=== PATIENT | male | born 1960 | race Caucasian/White ===

== ENCOUNTER 2016-08-16 07:36 | Day surgery (SDC) | payer MEDICAID ==
[2016-08-16] MEDS ORDERED: LIDOCAINE 1% 5 ML SDV ONE (08:15)
[2016-08-16] MEDS ORDERED: LR 1,000 ML IV ONE (08:35)
[2016-08-16] MEDS ORDERED: LIDOCAINE 1% 5 ML SDV ID PRN (08:35)
[2016-08-16] MEDS ORDERED: PROPOFOL 200 MG/20 ML VIAL ONE ×2 (08:42)
[2016-08-16] MEDS ORDERED: MIDAZOLAM 2 MG/2 ML VIAL ONE (08:53)
--- NOTE | 2016-08-16 10:24 | GPN ---
[f rep st] PROCEDURE NOTE PROCEDURE: Esophagogastroduodenoscopy with dilation. INDICATION: Known esophageal stricture, known Holliday's. PREOPERATIVE DIAGNOSIS: Esophageal stricture, known, and Holliday's. POSTOPERATIVE DIAGNOSES: 1. Esophageal stricture, status post dilation to 20 mm with Savary dilators. 2. Holliday esophagitis. No biopsies. 3. Percutaneous endoscopic gastrostomy in place in stomach. 4. Normal duodenum. INFORMED CONSENT: I had a detailed discussed with the patient regarding the procedure, alternatives, benefits, and risks, including bleeding, perforation, infection, risk of medication. Informed conse nt was signed and witnessed. COMPLICATIONS: None immediate. MEDICATIONS: IV general, as per Dr. Muhammad. DESCRIPTION OF PROCEDURE: After the patient was placed in the left lateral decubitus position, under adequate sedation, the forward-viewing upper endoscope was inserted in the oropharynx and advanced d own the esophagus. The proximal esophagus was normal. Starting at the midesophagus was a long segme nt Holliday's. There was no abnormal mucosa. The stricture was much improved from previous. I was a ble to pass my endoscope with absolutely no resistance. I advanced into the stomach. The PEG was in place in the stomach. The pylorus was normal. The duodenal bulb and sweep were normal. The endosc ope was withdrawn back in the stomach. A retroflex examination was performed. The endoscope was un retroflexed. Guidewire was placed into the antrum. The endoscope was removed with the guidewire in place. Savary dilators were placed over the guidewire. I initially started with a 15 mm Savary with absolutely no resistance. There was no heme. I then went up to a 17 mm dilator with minimal resist ance, an 18 mm dilator with minimal resistance and a small amount of heme, and then a 20 mm dilator w ith mild resistance and a small amount of heme. In between the 18 mm and 20 mm balloon, I reinserted the endoscope to examine the area, and there was dilation performed. There was no deep tear. There was a small amount of heme at that area. The endoscope was then completely removed, confirming the above findings. The patient tolerated this procedure well, and was transferred to the recovery area in satisfactory condition. IMPRESSION: 1. Known esophageal stricture, status post dilation to 20 mm with Savary. 2. Long segment Holliday's. 3. Percutaneous endoscopic gastrostomy in place in the stomach. 4. Otherwise normal exam. RECOMMENDATIONS: 1. Continue Prilosec 40 mg p.o. twice daily half an hour to an hour before breakfast and dinner. 2. Continue ranitidine 300 mg p.o. at bedtime. 3. Repeat EGD with possible dilation in approximately 4 months. Will also biopsy the Holliday's at t hat time. 4. Cut food into small pieces and chew well. 5. If the patient has any episodes of dysphagia, we would recommend EGD at that time, sooner than th e 4-month interval that is noted above. 6. Antireflux lifestyle changes. 7. Follow up with primary care physician as scheduled. Thank you for allowing me to participate in this patient's healthcare. Do not hesitate to call me wi th any questions. Copy requested to: [facility] /[id number]/MODL
== END 2016-08-16 11:45 | disposition home or self-care (01) ==
LOC: FSGY 07:36
PROVIDERS: ATTEND Internal Medicine Gastroenterology
PROC: 0D758ZZ Dilation of Esophagus, Via Natural or Artificial Opening Endoscopic (ICD-10-PCS; principal; 2016-08-16 09:00)
DX: K22.2 Esophageal obstruction (principal); K22.70 Barrett's esophagus without dysplasia; I10 Essential (primary) hypertension; E03.9 Hypothyroidism, unspecified; Z93.1 Gastrostomy status; I69.351 Hemiplegia and hemiparesis following cerebral infarction affecting right dominant side; F17.210 Nicotine dependence, cigarettes, uncomplicated
CPT/HCPCS: J2250; J2704

== ENCOUNTER 2016-10-28 09:41 | Inpatient (IN) | payer MEDICAID ==
--- NOTE | 2016-10-28 09:51 | EDPHY ---
H & P HPI/ROS: CHIEF COMPLAINT: possible sepsis HISTORY OF PRESENT ILLNESS: Patient is a 56-year-old male with previous CVA who is full-time resident at [facility]. Per report, the patient is often times belligerent and not receptive care. The patient states that he developed right buttock pain last . It has progressed since that time. He now has significant pain and redness. "It is a real pain in the ass." Pain is described as severe. It does not radiate. Patient was initially started on Keflex and then Bactrim. He had been written for IV antibiotic Rocephin but did not want a PICC line, per report. The patient denies fevers or chills. He has no numbness or tingling. REVIEW OF SYSTEMS: My complete review of systems is negative except as mentioned in the HPI. Past Medical/Surgical History: Includes CVA, hypothyroidism, dementia, hypertension, dysphagia, GERD, benign prostatic hypertrophy, depression Social History: Patient is a residential resident. He "occasionally smokes". Smoking Status: Heavy smoker Physical Exam: Vitals noted GENERAL: No acute distress, alert. HEENT: Eyes normal to inspection, poor dentition, normal pharynx, no signs of dehydration. NECK: No thyromegaly, no lymphadenopathy, supple. RESPIRATORY: Clear to auscultation bilaterally, no rales, rhonchi or wheezing. CVS: Regular rate and rhythm, no rubs, murmurs, or gallops. ABDOMEN: Soft, nontender, nondistended, no organomegaly. BACK/Buttock: Patient has significant erythema over his right buttock. This extends down the right posterior/lateral thigh. It has previously been demarcated with a pen and is not extending beyond this mk. It is mildly firm to the touch. There is no fluctuance. The patient has 2 ulcers on the buttock. There are deep and have pus discharge. SKIN: Normal color, no rash, warm, dry. No pallor. EXTREMITIES: No pedal edema, no calf tenderness, no Homans sign or cords, no joint swelling. NEURO/PSYCH: Alert and oriented, normal mood and affect. Patient has difficulty with speech secondary to CVA. He does have residual weakness. Allergies/Adverse Reactions: iodine Allergy (Verified 07/26/16 10:53) Home Medications: Medication Instructions Recorded Doxazosin Mesylate [Cardura 1 MG 1 mg TUBE HS 03/12/15 (*)] Levothyroxine [Synthroid 25 mcg 25 mcg TUBE DAILY06 03/12/15 (*)] Magnesium Hydroxide [Milk of 10 ml TUBE Q8 PRN 03/12/15 Magnesia (*)] Metoprolol Tartrate [Lopressor 25 25 mg TUBE DAILY 03/12/15 mg (*)] Omeprazole [Prilosec 20 mg] 40 mg TUBE BID 03/12/15 Simvastatin [Zocor] 20 mg TUBE DAILY 03/12/15 guaiFENesin [Mucinex 600 MG (*)] 600 mg TUBE BID 03/12/15 Acetaminophen [Tylenol] 1,000 mg TUBE DAILY 01/22/16 Glycopyrrolate 1 mg TUBE BID 01/22/16 Mirtazapine [Remeron Soltab] 45 mg TUBE HS 01/22/16 Ranitidine HCl [Zantac] 300 mg TUBE DAILY 01/22/16 clonazePAM [KlonOPIN] 0.25 mg TUBE BID 01/22/16 Artificial Tears 2 drops EACHEYE QID 07/26/16 Multivitamin 1 tab-cap TUBE DAILY 07/26/16 Robitussin Dm Oral Liquid (*) 10 ml TUBE Q4H 07/26/16 Vitamin C 500 mg (*) 500 mg TUBE BID AT 7AM AND 3PM 07/26/16 Medical Decision Making ED Course/Re-evaluation: In the emergency department I met EMS on arrival. I took report from the wealth management director. I reviewed the patient's record from the residential. I also reviewed the patient's previous medical record from the hospital. It is noted the patient was placed on Keflex and Bactrim orally. There was a note that the patient would be started on Rocephin and then Zosyn if he consented to a PICC line. However, the patient does not have an IV. I discussed the plan with the patient and answered his questions. He consents to IV placement, laboratory studies, cultures and treated with antibiotics. The patient was given Rocephin 1 g IV and vancomycin 1 g IV. Differential Diagnosis: My differential includes but is not limited to ulcers, cellulitis, abscess, bacteremia, sepsis, foreign body, fistula Departure - Departure Disposition: [facility] Inpatient Acute Clinical Impression: Pressure ulcer, buttock Qualifiers: Pressure ulcer stage: unspecified pressure ulcer stage Laterality: right Qualified Code(s): L89.319 - Pressure ulcer of right buttock, unspecified stage Cellulitis Qualifiers: Site of cellulitis: buttock Qualified Code(s): L03.317 - Cellulitis of buttock Condition: Good Referrals: Patient,NotPresent [Primary Care Provider] - As per Instructions
[2016-10-28] MEDS ORDERED: VANCOMYCIN HCL/NORMAL SALINE 250 ML IV ONE (10:05)
[2016-10-28 10:17] LABS: ADD DIFF? YES; ADD MORPH? NO; ADD SCAN? NO; ATYPICAL LYMPHOCYTE FLAG 70 (0-99); FRAGMENT RBC FLAG 0 (0-99); HEMATOCRIT 45.2 % (40.0-51.0); HEMOGLOBIN 15.3 g/dL (13.7-17.5); LEFT SHIFT FLG 40 (0-99); LIPEMIA HEMOLYSIS FLAG 90 (0-99); MEAN CELL HEMOGLOBIN 31.7 pg (27.9-34.1); MEAN CELL HEMOGLOBIN CONCENTR. 33.8 g/dL (32.4-36.7); MEAN CELL VOLUME 93.8 fL (81.5-99.8); MEAN PLATELET VOLUME 10.6 fL (8.7-11.7); PLATELET CLUMPS FLAG 0 (0-99); PLATELET COUNT 221 10^3/uL (150-400); RED BLOOD CELL COUNT 4.82 10^6/uL (4.40-6.38); RED CELL DISTRIBUTION WIDTH 13.9 % (11.5-15.2)
[2016-10-28 10:22] LABS: INR 1.14 (0.83-1.16); PROTIME(PATIENT) 14.5 SEC (12.0-15.0)
[2016-10-28 10:23] LABS: APTT 29.6 SEC (23.0-38.0)
[2016-10-28] MEDS ORDERED: NS 1,000 ML IV ONE (10:26)
[2016-10-28 10:43] LABS: ANION GAP 10 mEq/L (8-16); CALCIUM 8.1 mg/dL (8.5-10.4); CARBON DIOXIDE 28 mEq/l (22-31); CHLORIDE 96 mEq/L (97-110); GLOMERULAR FILTRATION RATE > 60; GLUCOSE 82 mg/dL (70-100); POTASSIUM 3.6 mEq/L (3.5-5.2); SODIUM 134 mEq/L (134-144)
[2016-10-28 10:58] LABS: ECHINOCYTES 1+; MICROCYTES 1+; PLATELET ESTIMATE ADEQUATE (ADEQ); POLYCHROMASIA 1+
--- NOTE | 2016-10-28 12:29 | WOCRNPDOC ---
WOCRN Advanced Assessment Note - Skin Integrity Problem, Advanced Assess Right Ischial Tuberosity Pressure Injury Dressing Type: ABD Pad Dressing Description: Intact, Shadowed Exudate Amount: Excessive Exudate Characteristic(s): Sanguinopurulent Integumentary Issue Intervention: Dressing Removed Nora Wound Tissue: Erythema, Erythema Marked by Wound aerospace medicine physician Bed Color: Alan Wound Bed Constitution: Smooth Tissue (necrotic), Undermining ( circumferentially 6 cm ), Subcutaneous Fat Wound Edges: Not Attached Site Odor: Very Strong, Foul Site Measurement - Head-to-Toe Length X Width X Depth (cm): 5x15x1.5 Pressure Injury Stage: Stage 4 Pressure Injury Present on Admit: Yes Skin Integrity Problem Comment: Extensive erythema over hip and buttock emanating from necrotic, infected wound. Two open wounds are present. The largest over the right ischial tuberosity and the second near the distal sacrum. However these two wounds are only sperated by a skin bridge and are essentialy one wound. Patient needs a surgical consultation and one was requested from Corie Gaitan NP. TAPS initiated. Specialty bed will be ordered. Wound care will round again tomorrow. Right Greater Trochanter Blister Dressing Type: Open to Air Site Measurement - Head-to-Toe Length X Width X Depth (cm): 4x5x0 Skin Integrity Problem Comment: Appears to be a large blister forming secondary to infection in the tissues.
[2016-10-28] MEDS ORDERED: ACETAMINOPHEN 325 MG TAB PO PRN (12:36)
[2016-10-28] MEDS ORDERED: ONDANSETRON DISINTEGRATING 4 MG TAB PO PRN (12:36)
[2016-10-28] MEDS ORDERED: ONDANSETRON 4 MG/2 ML VIAL IVP PRN (12:36)
[2016-10-28] MEDS ORDERED: oxyCODONE IR 5 MG TAB PO PRN (13:07)
[2016-10-28] MEDS ORDERED: NS 1,000 ML IV SCH (13:15)
--- NOTE | 2016-10-28 14:09 | SOAPPROG ---
SOAP Progress Note Assessment/Plan: Assessment: Plan: Subjective: 56 year old male with large right buttock abscess, draining purulence. not really a decubitus ulcer. needs opertative drainage large area of surrounding eryuthema. doesn't look like nec fasciitis. will take to or emergently. wbc 20 k with large bands. Objective: Vital Signs Temp Pulse Resp BP Pulse Ox 36.6 C 75 16 94/60 L 90 L 10/28/16 12:28 10/28/16 12:28 10/28/16 12:28 10/28/16 12:28 10/28/16 12:28 PT 14.5 SEC (12.0-15.0) 10/28/16 10:06 INR 1.14 (0.83-1.16) 10/28/16 10:06 ICD10 Worksheet Patient Problems: Problems Problem Status Onset Cellulitis Acute Pressure ulcer, buttock Acute Cellulitis Acute MRSA (methicillin resistant Staphylococcus aureus) Acute 08/25/15
[2016-10-28] MEDS ORDERED: LIDOCAINE 1% 30 ML SDV ONE (14:33)
[2016-10-28] MEDS ORDERED: BUPIVACAINE 0.5% 30 ML SDV ONE (14:34)
[2016-10-28] MEDS ORDERED: SKIN ADHESIVE (DERMABOND) 1 EACH TP ONE (15:04)
[2016-10-28] MEDS ORDERED: fentaNYL 100 MCG/2 ML INJ ONE (15:10)
[2016-10-28] MEDS ORDERED: PROPOFOL/EMULSION 500 MG/50 ML BOTTLE IV ONE (15:10)
[2016-10-28] MEDS ORDERED: PHENYLEPHRINE HCL 100 MCG/ML SYR ONE (15:31)
[2016-10-28] MEDS ORDERED: ONDANSETRON 4 MG/2 ML VIAL ONE (15:31)
[2016-10-28] MEDS ORDERED: MIDAZOLAM 2 MG/2 ML VIAL ONE (15:37)
--- NOTE | 2016-10-28 16:05 | GHP ---
[f rep st] HISTORY AND PHYSICAL DATE OF ADMISSION: 10/28/2016 CHIEF COMPLAINT: Right buttock wound. HISTORY OF PRESENT ILLNESS: The patient is a 56-year-old male with a history of a CVA, who is a ful l-time resident at [facility]. The patient was noted to have some increased pain starting approxima tely 6 days ago in his right buttock area. His pain has progressed since that time. He was treated with oral antibiotics at his living facility and was recommended to get a PICC line with IV antibio tics, but the patient refused. His pain in his right buttock is described as severe. It is isolate d to the right buttock, with no radiation to any other area. He was initially treated with Keflex a nd Bactrim. He denies any fevers or chills. He denies any numbness or tingling. He denies any anisha sea, vomiting, diarrhea. ALLERGIES: Iodine. HOME MEDICATIONS: Guaifenesin, milk of magnesia, eyedrops, Prilosec, Bactrim, Tylenol, Zocor, Synth roid, Zantac, Remeron, Cardura, clonazepam. REVIEW OF SYSTEMS: Comprehensive 10-point review of systems is negative, other than noted in HPI. PAST MEDICAL HISTORY: 1. CVA, hypothyroidism, dementia, hypertension, dysphagia, GERD, benign prostatic hypertrophy, depr ession. 2. History of esophageal stricture. 3. Holliday's esophagus. 4. Right-sided hemiplegia. PAST SURGICAL HISTORY: 1. G-tube placement. 2. Multiple esophageal dilations. SOCIAL HISTORY: The patient resides at [facility]. He smokes tobacco intermittently. He denies an y alcohol use. FAMILY HISTORY: Reviewed and noncontributory. PHYSICAL EXAM: GENERAL: The patient is alert, no acute distress. VITAL SIGNS: Afebrile at 36.6, pulse 75, respiratory rate 16. Blood pressure is 94/60, saturating 90% on 1.5 L. HEENT: Normoceph alic, atraumatic. Poor dentition. NECK: Supple. No lymphadenopathy noted. RESPIRATORY: Lungs a re clear to auscultation bilaterally. No rales or rhonchi noted. CARDIOVASCULAR: Regular rate and rhythm. No gallop or murmur appreciated. GASTROINTESTINAL: Abdomen, bowel sounds are positive. Soft and nontender. There is no guarding or rigidity. EXTREMITIES: Without clubbing or cyanosis. Right upper and lower extremity have decreased strength and movement. SKIN: Back and buttock, the re is significant erythema over the right buttock. It extends down to the right posterolateral thig h. It is firm to the touch, with 2 ulcers and pus discharge. Skin otherwise is normal in color. N o rashes or lesions. LABORATORY DATA: White count of 20, BUN of 24. ASSESSMENT AND PLAN: A 56-year-old male, brought to the emergency room from [facility]. 1. Right buttock cellulitis with likely abscess. Infectious Disease has been consulted at the time of admission, as well as General Surgery. The plan is for the patient to go to the operating room, have I and D of this infectious process. He will be continued on IV antibiotic therapy per Infecti ous Disease recommendations. The patient has been made n.p.o. I appreciate Surgery and Infectious Disease consultation. I anticipate that this will be a lengthy healing process for the patient. 2. Leukocytosis. This is an acute response to the patient's active infection. Will continue to fo llow his laboratory evaluation. 3. Chronic aspiration with dysphagia. The patient does have a feeding tube. We will clarify from [facility] exactly what his restrictions are. We will continue his home medications per tube after he has returned from surgery and able to tolerate oral intake. 4. Pain. We will continue supportive management of the patient's ongoing discomfort. DISPOSITION: The patient has been admitted to inpatient status as it will take more than 48 hours f or his condition to be thoroughly evaluated and treated. I have discussed the patient's admission w katelynn Fuller from the emergency room. Further action will be taken as needed during the patient's hospital course. /[id number]/MODL
--- NOTE | 2016-10-28 16:34 | POSTOPPROG ---
Post Op Note Date of Operation: 10/28/16 Surgeon: Corky Aranda Anesthesia: LMA Pre-op Diagnosis: r buttock abscess Post-op Diagnosis: same Indication: same Procedure: drainage, debridement of necrotic tissue, right buttock Findings: necrotizing purulent sub cu infection Inf/Abcess present in the surg proc area at time of surgery?: Yes Depth: Superfical (Skin SQ) EBL: 50-100 Complications: none Specimen(s): necrotic tissue
--- NOTE | 2016-10-28 17:19 | GOP ---
[f rep st] OPERATIVE REPORT DATE OF OPERATION: 10/28/2016 SURGEON: Corky Aranda MD PREOPERATIVE DIAGNOSIS: Necrotizing soft tissue infection, abscess, right buttock. POSTOPERATIVE DIAGNOSIS: Necrotizing soft tissue infection, abscess, right buttock. PROCEDURE PERFORMED: Extensive drainage, debridement, irrigation of right buttock abscess. FINDINGS: INDICATIONS: A 56-year-old male, comes in with a white blood count of 20,000, severe left shift, pu s draining from several openings in the left buttock, and a wide area of hollowness around these wou nds. DESCRIPTION OF PROCEDURE: Patient positioned left side down, decubitus with an axillary roll and pi llows between the legs, etc., taped to a taylor bag and the right buttock was scrubbed with Betadine, draped in usual sterile fashion. There was extensive undermining between 2 sites of drainage; this was opened with scissors and eventually, some skin edges debrided and much necrotic tissue and fasci a was debrided with scissors. There was very little bleeding, as much of the tissue was . Afte r irrigation with several liters of saline, palpation of the tissues still showed purulence emanatin g from deep spaces; therefore, additional tissue was opened and debrided and eventually, the whole w ound was clean down to apparent healthy fat. Some of the skin edges might turn necrotic, but they w ere re-perfusing with pressure, and it was felt reasonable to leave the wound as it was. It was cov ered with bulky gauze and tape dressing. /[id number]/MODL
[2016-10-29] MEDS ORDERED: GUAIFENESIN/DM 10 ML UDCUP TUBE PRN (08:33)
[2016-10-29] MEDS ORDERED: MAGNESIUM HYDROXIDE TUBE PRN (08:33)
[2016-10-29] MEDS ORDERED: MAGNESIUM HYDROXIDE 30 ML UDCUP TUBE PRN (08:50)
[2016-10-29] MEDS ORDERED: ENOXAPARIN 30 MG/0.3 ML SYR SC SCH (09:00)
[2016-10-29] MEDS ORDERED: OMEPRAZOLE MAGNESIUM 40 MG TUBE SCH (09:00)
[2016-10-29] MEDS ORDERED: Herbals/Supplements -Info Only PO SCH (09:00)
[2016-10-29] MEDS ORDERED: GUAIFENESIN 400 MG TUBE SCH (09:00)
[2016-10-29] MEDS: ASCORBIC ACID 500 MG TAB TUBE SCH ×2 (09:04→20:31)
[2016-10-29] MEDS: PANTOPRAZOLE SODIUM 40 MG TAB PO SCH ×2 (09:04→13:26)
[2016-10-29] MEDS: VANCOMYCIN HCL/NORMAL SALINE 250 ML IV SCH ×2 (09:04→20:30)
[2016-10-29] MEDS: ENOXAPARIN 40 MG/0.4 ML SYR SC SCH (09:04)
[2016-10-29] MEDS: GLYCOPYRROLATE 1 MG TAB TUBE SCH ×2 (09:04→21:02)
[2016-10-29] MEDS: guaiFENesin 200 MG/10 ML UDCUP TUBE SCH ×2 (09:19→20:31)
[2016-10-29] MEDS: LEVOTHYROXINE 25 MCG TAB TUBE SCH (09:19)
[2016-10-29 09:58] LABS: ADD DIFF? YES; ADD MORPH? NO; ADD SCAN? NO; ATYPICAL LYMPHOCYTE FLAG 90 (0-99); FRAGMENT RBC FLAG 10 (0-99); HEMATOCRIT 41.7 % (40.0-51.0); HEMOGLOBIN 13.6 g/dL (13.7-17.5); LEFT SHIFT FLG 30 (0-99); LIPEMIA HEMOLYSIS FLAG 80 (0-99); MEAN CELL HEMOGLOBIN 31.1 pg (27.9-34.1); MEAN CELL HEMOGLOBIN CONCENTR. 32.6 g/dL (32.4-36.7); MEAN CELL VOLUME 95.4 fL (81.5-99.8); MEAN PLATELET VOLUME 10.1 fL (8.7-11.7); PLATELET CLUMPS FLAG 10 (0-99); PLATELET COUNT 259 10^3/uL (150-400); RED BLOOD CELL COUNT 4.37 10^6/uL (4.40-6.38); RED CELL DISTRIBUTION WIDTH 14.4 % (11.5-15.2)
--- NOTE | 2016-10-29 10:12 | HOSPPROG ---
Hospitalist Progress Note Assessment/Plan: Right buttock abscess with necrotic material - Extensive I&D in OR by Dr. Aranda yesterday. Cx obtained, GPC's predominant on gram stain. I evaluated the wound and discussed the case with Dr. Dillard and Dr. Shrestha today. He is afebrile, wbc's trending down. -Resume IV Vancomycin -Surgery following, will likely requiring additional surgery -Wound care following H/O CVA - residual dysphagia, right hemiparesis and dysarthria, not on anti- platelet therapy. -cont statin, check lipid status -initiate baby asa, ok with surgery Dysphagia - has feeding tube -cont meds via tube Holliday's esophagus - cont PPI Hypertension - cont outpt meds Hypothyroid - cont levothyroxine Depression - cont outpt meds Full code DVP PPLX - Lovenox Dispo - cont inpt Subjective: Pt doing a bit better. He doesn't have significant pain post- operatively. No fevers/chills. Dysarthria is at baseline. No CP or SOB. Objective: Vital Signs Temp Pulse Resp BP Pulse Ox 36.8 C 86 18 96/48 L 90 L 10/29/16 07:31 10/29/16 07:31 10/29/16 07:31 10/29/16 07:31 10/29/16 07:31 Microbiology 10/28/16 15:45 Gram Stain - Final Buttock - Swab 10/28/16 15:45 Gram Stain - Final Buttock - Tissue Laboratory Results 10/29/16 09:46 10/28/16 10/29/16 10/30/16 05:59 05:59 05:59 Intake Total 600 800 Output Total 50 Balance 550 800 PT 14.5 SEC (12.0-15.0) 10/28/16 10:06 INR 1.14 (0.83-1.16) 10/28/16 10:06 - Physical Exam Constitutional: no apparent distress Eyes: PERRL Ears, Nose, Mouth, Throat: moist mucous membranes Cardiovascular: regular rate and rhythym Respiratory: no respiratory distress Gastrointestinal: normoactive bowel sounds, soft, non-tender abdomen Skin: other (Right buttock with very large incision and deep wound with some necrotic tissue noted, no significant purulence) Neurologic: AAOx3, other (+dyarthria, right sided hemiplegia) Psychiatric: interacting appropriately ICD10 Worksheet Patient Problems: Problems Problem Status Onset Cellulitis Acute Pressure ulcer, buttock Acute Cellulitis Acute MRSA (methicillin resistant Staphylococcus aureus) Acute 08/25/15
[2016-10-29 10:33] LABS: ANION GAP 10 mEq/L (8-16); CALCIUM 7.7 mg/dL (8.5-10.4); CARBON DIOXIDE 24 mEq/l (22-31); CHLORIDE 104 mEq/L (97-110); CREATININE 0.9 mg/dL (0.7-1.3); GLOMERULAR FILTRATION RATE > 60; GLUCOSE 68 mg/dL (70-100); SODIUM 138 mEq/L (134-144)
[2016-10-29 10:38] LABS: PLATELET ESTIMATE ADEQUATE (ADEQ)
--- NOTE | 2016-10-29 11:33 | PCMIDPN ---
Assessment/Plan: Patient seen and examined. Agree with empiric vancomycin IV. Wound gram stain polymicrobial but clinically much improved. Adjust antibiotics based on culture results. Dictation to follow. Objective: Vital Signs Temp Pulse Resp BP Pulse Ox 36.8 C 86 18 96/48 L 90 L 10/29/16 07:31 10/29/16 07:31 10/29/16 07:31 10/29/16 07:31 10/29/16 07:31 Microbiology 10/28/16 15:45 Gram Stain - Final Buttock - Swab 10/28/16 15:45 Gram Stain - Final Buttock - Tissue Laboratory Results 10/29/16 09:46 10/29/16 09:46 10/28/16 10/29/16 10/30/16 05:59 05:59 05:59 Intake Total 600 800 Output Total 50 Balance 550 800 ICD10 Worksheet Patient Problems: Problems Problem Status Onset Cellulitis Acute Pressure ulcer, buttock Acute Cellulitis Acute MRSA (methicillin resistant Staphylococcus aureus) Acute 08/25/15
--- NOTE | 2016-10-29 11:42 | WOCRNPDOC ---
WOCRN Advanced Assessment Note - Skin Integrity Problem, Advanced Assess Right Ischial Tuberosity Pressure Injury Dressing Type: ABD Pad, Gauze Dressing Description: Intact, Saturated Exudate Characteristic(s): Purulent (Minimal but still present, especially in undermining areas), Serosanguinous (moderate) Integumentary Issue Intervention: Dressing Changed David Wound Tissue: Blanching, Erythema (receeded from marked area. ), Hot Wound Bed Color: Red, Yellow, Alan Wound Bed Constitution: Smooth Tissue, Tunneling (6 oclock: thin tunnel barely wide enough for a Q tip running 4 cm toward midline), Undermining (9-3 oclock 3.5 cam and 3-9 oclock 4.5 cm), Subcutaneous Fat, Fascia Site Odor: Slight, Moderate, Foul Site Measurement - Head-to-Toe Length X Width X Depth (cm): 6.5x18x3 Pressure Injury Stage: Stage 4 Skin Integrity Problem Comment: Some of the skin along edges of wound appear non viable, but the majority appear healthy. Wound bed is mainly clean with a small pocket of necrosis around 5 oclock with loose slough. Noted tunnel at 6 oclock. This was all visualized by Dr. Dillard. Cleaned wound bed with ns. Skin prep applied david wound and drape. Wound bridged to right flank. Vac veraflo cleanse dressing applied into wound bed. Set to suction at -125 mm Hg with a Vashe instillation for 5 min every 3 hours for a total of 60 ml. [place] [facility] and [facility] assisted with all care. Right Greater Trochanter Blister Skin Integrity Problem Comment: This wound is now part of the previously charted ischial tuberosity wound.
[2016-10-29] MEDS: ASPIRIN 81 MG CHEWABLE TAB PO SCH (13:25)
[2016-10-29] MEDS: PANTOPRAZOLE SODIUM 40 MG in NS 100 ML IV SCH ×2 (13:25→20:51)
--- NOTE | 2016-10-29 13:28 | GCON ---
[f rep st] CONSULTATION INFECTIOUS DISEASE CONSULTATION DATE OF CONSULTATION: 10/29/2016 REASON FOR CONSULTATION: Right buttock abscess and cellulitis. HISTORY OF PRESENT ILLNESS: A 56-year-old male with a past medical history of CVA and heavy alcoholism, and is a full-time resident at [facility], presented to the emergency room yesterday for evaluation of increasing pain of his right buttocks and hip, which started approximately October 21 or . Patient was initially started on Keflex and Bactrim, but the area became more progressive and it was initially recommended that he get IV antibiotics, but it subsequently progressed, and he was sent to the emergency room for further evaluation even though the patient was somewhat reluctant. He is a difficult historian, but denies fevers, chills. His primary complaint is pain in his right hip. After admission to the hospital yesterday, patient was found to have a very large abscess on his right hip/buttock, and he went to the OR for I and D yesterday. Patient was found to have a large purulent abscess and underwent debridement resulting in a 6.5 x 18 x 3 cm wound with multiple areas of tunneling. In addition, the patient had a significantly elevated white count on admission at 20,000 supporting the diagnosis of large infection. PAST MEDICAL HISTORY: CVA with residual right-sided hemiplegia, hypothyroidism , dementia, hypertension, dysphagia, gastroesophageal reflux disease, BPH, depression, esophageal stricture, Holliday esophagitis. PAST SURGICAL HISTORY: Includes G-tube placement and multiple esophageal dilations. ALLERGIES: Iodine. MEDICATIONS: Include Vancomycin 1 g IV q.12 started on 10/29/2016 at 8 a.m., Zantac, Protonix, morphine, mirtazapine, Synthroid, guaifenesin/dextromethorphan , Robinul, Lovenox, Cardura, Klonopin, Lipitor, aspirin, vitamin C, and Tylenol as needed. SOCIAL HISTORY: Resides at [facility]. Smokes tobacco. No current alcohol use. FAMILY HISTORY: Reviewed and noncontributory. ROS: Complete 10 point review systems was performed and is negative except as mentioned in HPI PHYSICAL EXAM: VITAL SIGNS: Blood pressure 98/55, heart rate 83, respiratory rate 16, saturation 98% on 4 L, temperature 36.7. He has remarkably been afebrile throughout his hospital course. GENERAL: This is a cachectic male, who is somewhat agitated. HEENT: Very poor dentition, dry mucous membranes. CARDIOVASCULAR: Regular rate. CHEST: Clear to auscultation bilaterally. ABDOMEN: Soft. G-tube was in place. EXTREMITIES: Revealed a large wound on the right buttock, and as per HPI was 6.5 x 18 x 3 cm with a fairly clean wound bed, some small scattered areas of necrosis in the surrounding skin. There was significant erythema, but with obvious areas of recession and reports of decreased intensity of the erythema. The erythema extends down the posterior aspect of his thighs as well. A VeraFlo wound VAC was placed after my exam. NEUROLOGIC: This was a difficult exam due to timing of my exam at wound VAC exchange. LABORATORY: White count is 15,000, hematocrit 41, platelets of 259, 70% neutrophils, 6% bands, 18% lymphocytes, creatinine is 0.9. Blood cultures from 10/28 are pending. Tissue cultures from the operating room show 3+ PMN's, 3+ gram-positive rods, 3+ gram-positive cocci, and 1+ gram-negative rods. ASSESSMENT AND PLAN: This is a 56-year-old male who is bed-bound from cerebrovascular accident who sustained a severe pressure injury of his right hip , was subsequently abscessed and developed severe, as well as with severe surrounding cellulitis, now status post incision and drainage in the operating room. Gram stain, predominantly with gram-positive organisms suspect potential underlying anaerobes including Clostridium, as there were gram-positive rods identified on the Gram stain. Patient is clinically better today after incision and drainage. Vancomycin was initiated this morning. 1. Agree with IV vancomycin. We will hold off on further gram-negative coverage at this time and await further culture data. Vancomycin will cover gram-positive anaerobes including Clostridium. 2. Follow cultures as above. 3. Will continue to follow on a daily basis. No exposed bone at the time of my exam, the but should be on high alert for underlying osteomyelitis. Thank you for this consultation. /[id number]/MODL MTDD
[2016-10-29] MEDS: TEARS/DEXTRAN 70/HYPROMELLOSE 15 ML OPHT.BTL EACHEYE SCH ×3 (18:06→20:51)
[2016-10-29] MEDS: ACETAMINOPHEN 650 MG/20.3 ML UDCUP TUBE SCH (20:30)
[2016-10-29] MEDS: DOXAZOSIN MESYLATE 1 MG TAB TUBE SCH (20:31)
[2016-10-29] MEDS: RANITIDINE HCL 150 MG/10 ML UDCUP TUBE SCH (20:31)
[2016-10-29] MEDS: clonazePAM 0.5 MG TAB TUBE SCH (20:31)
[2016-10-29] MEDS: ATORVASTATIN CALCIUM 10 MG TAB TUBE SCH (20:32)
[2016-10-29] MEDS ORDERED: NON-FORMULARY NEW DRUG (Simvastatin [Zocor] 20 MG) TUBE SCH (21:00)
[2016-10-29] MEDS ORDERED: NON-FORMULARY NEW DRUG (Clonazepam [Clonazepam] 0.25 MG) TUBE SCH (21:00)
[2016-10-29] MEDS: MIRTAZAPINE 30 MG ODTAB PO SCH (21:05)
[2016-10-30 02:42] LABS: COLOR YELLOW; LEUKOCYTE ESTERASE,URINE NEGATIVE (NEGATIVE); NITRITE,URINE NEGATIVE (NEGATIVE)
[2016-10-30 05:45] LABS: ADD DIFF? YES; ADD MORPH? NO; ADD SCAN? NO; ATYPICAL LYMPHOCYTE FLAG 50 (0-99); FRAGMENT RBC FLAG 0 (0-99); HEMATOCRIT 41.9 % (40.0-51.0); HEMOGLOBIN 13.5 g/dL (13.7-17.5); LEFT SHIFT FLG 50 (0-99); LIPEMIA HEMOLYSIS FLAG 80 (0-99); MEAN CELL HEMOGLOBIN 31.7 pg (27.9-34.1); MEAN CELL HEMOGLOBIN CONCENTR. 32.2 g/dL (32.4-36.7); MEAN CELL VOLUME 98.4 fL (81.5-99.8); MEAN PLATELET VOLUME 10.5 fL (8.7-11.7); PLATELET CLUMPS FLAG 0 (0-99); PLATELET COUNT 263 10^3/uL (150-400); RED BLOOD CELL COUNT 4.26 10^6/uL (4.40-6.38); RED CELL DISTRIBUTION WIDTH 14.5 % (11.5-15.2)
[2016-10-30 05:59] LABS: ANION GAP 7 mEq/L (8-16); CALCIUM 7.6 mg/dL (8.5-10.4); CARBON DIOXIDE 27 mEq/l (22-31); CHLORIDE 108 mEq/L (97-110); CHOLESTEROL 52 mg/dL (140-220); CHOLESTEROL/HDL RATIO 4.73 RATIO (1.00-4.97); CREATININE 0.8 mg/dL (0.7-1.3); GLOMERULAR FILTRATION RATE > 60; GLUCOSE 89 mg/dL (70-100); HIGH DENSITY LIPOPROTEIN 11 mg/dL (40-65); LDL/HDL RATIO 1.73 RATIO (1.00-3.64); LOW DENSITY LIPOPROTEIN 19 mg/dL (80-100); NON-HIGH DENSITY LIPOPROTEIN 41 mg/dL (90-129); POTASSIUM 4.2 mEq/L (3.5-5.2); SODIUM 142 mEq/L (134-144); TRIGLYCERIDE 111 mg/dL (40-150); VERY LOW DENSITY LIPOPROTEINS 22 mg/dL (8-25)
[2016-10-30] MEDS: TEARS/DEXTRAN 70/HYPROMELLOSE 15 ML OPHT.BTL EACHEYE SCH ×4 (06:38→20:31)
[2016-10-30] MEDS: LEVOTHYROXINE 25 MCG TAB TUBE SCH (06:39)
[2016-10-30 07:39] LABS: PLATELET ESTIMATE ADEQUATE (ADEQ); POLYCHROMASIA 1+
[2016-10-30] MEDS: VANCOMYCIN HCL/NORMAL SALINE 250 ML IV SCH ×2 (08:24→20:19)
--- NOTE | 2016-10-30 10:19 | HOSPPROG ---
Hospitalist Progress Note Assessment/Plan: Right buttock abscess with necrotic material - Extensive I&D in OR by Dr. Aranda, POD #2. MRSA on wound Cx. I evaluated the wound and discussed the case with Dr. Dillard and Dr. Shrestha yesterday. He is afebrile, wbc's trending down. -Cont IV Vancomycin -Surgery following, will likely requiring additional surgery -Wound vac on, cont wound care H/O CVA - residual dysphagia, right hemiparesis and dysarthria -cont statin -started baby asa, ok'd by surgery Dysphagia - has feeding tube -cont meds via tube Holliday's esophagus - cont PPI Hypertension - cont outpt meds Hypothyroid - cont levothyroxine Depression - cont outpt meds Full code DVP PPLX - Lovenox Dispo - cont inpt Subjective: Pt wants to go home. He is frustrated. No fevers/chills. Says butt hurts. Wound vac in place. Objective: Vital Signs Temp Pulse Resp BP Pulse Ox 36.9 C 73 18 111/67 94 10/30/16 07:27 10/30/16 07:27 10/30/16 07:27 10/30/16 07:27 10/30/16 07:27 Microbiology 10/28/16 15:45 Gram Stain - Final Buttock - Swab 10/28/16 15:45 Gram Stain - Final Buttock - Tissue 10/28/16 15:45 Mycobacterial Smear (CHRISTI) - Final Buttock - Tissue Laboratory Results 10/30/16 04:15 10/30/16 04:15 10/29/16 10/30/16 10/31/16 05:59 05:59 05:59 Intake Total 600 800 Output Total 50 850 Balance 550 -50 PT 14.5 SEC (12.0-15.0) 10/28/16 10:06 INR 1.14 (0.83-1.16) 10/28/16 10:06 - Physical Exam Constitutional: chronically ill appearing Eyes: PERRL Ears, Nose, Mouth, Throat: moist mucous membranes Cardiovascular: regular rate and rhythym Respiratory: no respiratory distress, clear to auscultation Gastrointestinal: normoactive bowel sounds, soft, non-tender abdomen Skin: warm Musculoskeletal: other (RLE with decreased erythema, wound vac in place) Neurologic: AAOx3, other (+right hemiparesis, dysarthria) Psychiatric: interacting appropriately ICD10 Worksheet Patient Problems: Problems Problem Status Onset Cellulitis Acute Pressure ulcer, buttock Acute Cellulitis Acute MRSA (methicillin resistant Staphylococcus aureus) Acute 08/25/15
[2016-10-30] MEDS: ENOXAPARIN 40 MG/0.4 ML SYR SC SCH (10:21)
[2016-10-30] MEDS: PANTOPRAZOLE SODIUM 40 MG in NS 100 ML IV SCH ×2 (10:21→20:27)
[2016-10-30] MEDS: GLYCOPYRROLATE 1 MG TAB TUBE SCH ×2 (10:21→20:30)
[2016-10-30] MEDS: guaiFENesin 200 MG/10 ML UDCUP TUBE SCH ×2 (10:21→20:28)
[2016-10-30] MEDS: ASPIRIN 81 MG CHEWABLE TAB PO SCH (10:22)
[2016-10-30] MEDS: ASCORBIC ACID 500 MG TAB TUBE SCH ×2 (10:22→20:30)
--- NOTE | 2016-10-30 12:03 | SOAPPROG ---
SOAP Progress Note Assessment/Plan: Assessment: Plan: Subjective: sola wants to go back to [facility]. wound vac in place. mrsa on cultures, on vanco likely needs another trip to [place], but wound can'rt be checked right now because of wound vac. will re eval tuesday during dressing chnage. tryed to explain to the patient the need for continued hospitalzation. he may or may not have understood. Objective: Vital Signs Temp Pulse Resp BP Pulse Ox 36.6 C 83 18 108/65 90 L 10/30/16 11:34 10/30/16 11:34 10/30/16 11:34 10/30/16 11:34 10/30/16 11:34 Microbiology 10/28/16 15:45 Gram Stain - Final Buttock - Swab 10/28/16 15:45 Gram Stain - Final Buttock - Tissue 10/28/16 15:45 Mycobacterial Smear (CHRISTI) - Final Buttock - Tissue Laboratory Results 10/30/16 04:15 10/30/16 04:15 10/29/16 10/30/16 10/31/16 05:59 05:59 05:59 Intake Total 600 800 Output Total 50 850 Balance 550 -50 PT 14.5 SEC (12.0-15.0) 10/28/16 10:06 INR 1.14 (0.83-1.16) 10/28/16 10:06 ICD10 Worksheet Patient Problems: Problems Problem Status Onset Cellulitis Acute Pressure ulcer, buttock Acute Cellulitis Acute MRSA (methicillin resistant Staphylococcus aureus) Acute 08/25/15
--- NOTE | 2016-10-30 13:56 | PCMIDPN ---
Assessment/Plan: R buttock/hip cellulitis with enormous abscess s/p debridement. WOund vac in place, Cx show MRSA. WBC trending down , recession of erythema. BLood cx 10/28 remain negative --continue vancomycin, Cr stable --check vancomycin T tomorrow at 7am (instead of tonight) meds vancomycin 1gm IV q12h Subjective: no specific c/o Objective: Vital Signs Temp Pulse Resp BP Pulse Ox 36.6 C 83 18 108/65 90 L 10/30/16 11:34 10/30/16 11:34 10/30/16 11:34 10/30/16 11:34 10/30/16 11:34 Microbiology 10/28/16 15:45 Gram Stain - Final Buttock - Swab 10/28/16 15:45 Gram Stain - Final Buttock - Tissue 10/28/16 15:45 Mycobacterial Smear (CHRISTI) - Final Buttock - Tissue Laboratory Results 10/30/16 04:15 10/30/16 04:15 10/29/16 10/30/16 10/31/16 05:59 05:59 05:59 Intake Total 600 800 Output Total 50 850 Balance 550 -50 - Physical Exam General Appearance: alert, no apparent distress EENT: poor dentition Respiratory: lungs clear, No accessory muscle use Neck: supple Extremities: erythema (R lateral hip, seems less bright. Patient unwilling to be turned) Abdomen: non-tender, soft Neuro/Psych: alert, motor weakness (R hemiparesis), other (dysarthria) ICD10 Worksheet Patient Problems: Problems Problem Status Onset Cellulitis Acute Pressure ulcer, buttock Acute Cellulitis Acute MRSA (methicillin resistant Staphylococcus aureus) Acute 08/25/15
[2016-10-30] MEDS: ACETAMINOPHEN 650 MG/20.3 ML UDCUP TUBE SCH (20:27)
[2016-10-30] MEDS: RANITIDINE HCL 150 MG/10 ML UDCUP TUBE SCH (20:28)
[2016-10-30] MEDS: MIRTAZAPINE 30 MG ODTAB PO SCH (20:30)
[2016-10-30] MEDS: clonazePAM 0.5 MG TAB TUBE SCH (20:30)
[2016-10-30] MEDS: ATORVASTATIN CALCIUM 10 MG TAB TUBE SCH (20:30)
[2016-10-30] MEDS: DOXAZOSIN MESYLATE 1 MG TAB TUBE SCH (20:30)
[2016-10-31 05:00] LABS: ADD DIFF? YES; ADD MORPH? NO; ADD SCAN? NO; ATYPICAL LYMPHOCYTE FLAG 30 (0-99); FRAGMENT RBC FLAG 0 (0-99); HEMATOCRIT 42.5 % (40.0-51.0); LEFT SHIFT FLG 30 (0-99); LIPEMIA HEMOLYSIS FLAG 80 (0-99); MEAN CELL HEMOGLOBIN CONCENTR. 32.9 g/dL (32.4-36.7); MEAN CELL VOLUME 97.3 fL (81.5-99.8); MEAN PLATELET VOLUME 10.2 fL (8.7-11.7); PLATELET CLUMPS FLAG 0 (0-99); PLATELET COUNT 315 10^3/uL (150-400); RED BLOOD CELL COUNT 4.37 10^6/uL (4.40-6.38); RED CELL DISTRIBUTION WIDTH 14.4 % (11.5-15.2)
[2016-10-31 06:37] LABS: PLATELET ESTIMATE ADEQUATE (ADEQ)
[2016-10-31] MEDS: LEVOTHYROXINE 25 MCG TAB TUBE SCH (06:38)
[2016-10-31] MEDS: ASPIRIN 81 MG CHEWABLE TAB PO SCH (08:04)
[2016-10-31] MEDS: ASCORBIC ACID 500 MG TAB TUBE SCH ×2 (08:04→20:42)
[2016-10-31] MEDS: VANCOMYCIN HCL/NORMAL SALINE 250 ML IV SCH (08:04)
[2016-10-31] MEDS: GLYCOPYRROLATE 1 MG TAB TUBE SCH ×2 (08:04→20:42)
[2016-10-31] MEDS: ENOXAPARIN 40 MG/0.4 ML SYR SC SCH (08:05)
[2016-10-31] MEDS: guaiFENesin 200 MG/10 ML UDCUP TUBE SCH ×2 (08:05→20:45)
--- NOTE | 2016-10-31 08:42 | SOAPPROG ---
SOAP Progress Note Assessment/Plan: Assessment/Plan: 56 yo man s/p debridement of right buttock abscess MRSA positive Poor cognition/decision making by pt Expressed desire to leave. Unsure if he understands the reason for hospitalization Vanco trough 14.9 WBC up to 16 Blood Cx from 10/28 negative to date Large BM this am onto and into vac dressing GT in place Wound vac on wash cycle (appears to be leaking) No surrounding cellulitis, non tender Change vac today instead to tomorrow then W-F if intact. Continue current care/abx regimen per ID 10/31/16 08:38 Objective: Vital Signs Temp Pulse Resp BP Pulse Ox 36.7 C 78 18 127/83 H 89 L 10/31/16 07:30 10/31/16 07:30 10/31/16 07:30 10/31/16 07:30 10/31/16 07:30 Microbiology 10/28/16 15:45 Gram Stain - Final Buttock - Swab 10/28/16 15:45 Gram Stain - Final Buttock - Tissue Laboratory Results 10/31/16 04:13 10/30/16 04:15 10/30/16 10/31/16 11/01/16 05:59 05:59 05:59 Intake Total 800 35 Output Total 850 300 Balance -50 -300 35 PT 14.5 SEC (12.0-15.0) 10/28/16 10:06 INR 1.14 (0.83-1.16) 10/28/16 10:06 ICD10 Worksheet Patient Problems: Problems Problem Status Onset Cellulitis Acute Pressure ulcer, buttock Acute Cellulitis Acute MRSA (methicillin resistant Staphylococcus aureus) Acute 08/25/15
[2016-10-31] MEDS: PANTOPRAZOLE SODIUM 40 MG in NS 100 ML IV SCH ×2 (10:55→22:20)
[2016-10-31] MEDS: TEARS/DEXTRAN 70/HYPROMELLOSE 15 ML OPHT.BTL EACHEYE SCH ×3 (12:55→20:48)
--- NOTE | 2016-10-31 13:18 | PCMIDPN ---
Assessment/Plan: #R buttock/hip cellulitis with enormous abscess cavity (6.5x18x3 cm) s/p debridement 10/28. Wound vac removed today for fecal soiling, Cx show MRSA. other organisms present on gram stain may be anaerobes. Today continued recession of erythema. No bacteremia --continue vancomycin --Vanco T 14.9, concern will creep up over time in this debilitated patient. Decreased dose to 750mg IV q12, plan 2 weeks therapy since limited to soft tissue infection. Could consider oral therapy at some point --patient strongly desires to return to [place] but pain associated with wound vac changes makes this seem not feasible. Wound will require high level of care. Ethics consult to assess if patient truly understands seriousness of situation --okay to place PICC #Diarrhea + increasing WBC : r/o cdiff meds vancomycin 1gm IV q12h, #3 micro 10/28 blood cx (2) : NGTD 10/28 OR cx : MRSA, clovis=5 coordination of care with dr. fletcher Subjective: Perseverating re wanting to return to [facility]. VERY insistent. Significant pain associated with removal of wound vac today. New diarrhea Objective: Vital Signs Temp Pulse Resp BP Pulse Ox 36.7 C 78 18 127/83 H 89 L 10/31/16 07:30 10/31/16 07:30 10/31/16 07:30 10/31/16 07:30 10/31/16 07:30 Microbiology 10/28/16 15:45 Gram Stain - Final Buttock - Swab 10/28/16 15:45 Gram Stain - Final Buttock - Tissue Laboratory Results 10/31/16 04:13 10/30/16 04:15 10/30/16 10/31/16 11/01/16 05:59 05:59 05:59 Intake Total 800 35 Output Total 850 300 Balance -50 -300 35 Gen: thin, disheveled male, agitated HEENT: poor dentition Resp: breathing easy R hip with some mild erythema immediately around wound, per RN no purulence in base of wound - Time Spent With Patient Time Spent with Patient: greater than 25 minutes Time Spent with Patient: Greater than 25 minutes spent on this patients care, greater than 50% of time spent counseling, educating, and coordinating care regarding the above mentioned plan. ICD10 Worksheet Patient Problems: Problems Problem Status Onset Cellulitis Acute Pressure ulcer, buttock Acute Cellulitis Acute MRSA (methicillin resistant Staphylococcus aureus) Acute 08/25/15
[2016-10-31] MEDS ORDERED: ALTEPLASE 2 MG VIAL IVP PRN (13:24)
--- NOTE | 2016-10-31 13:30 | HOSPPROG ---
Hospitalist Progress Note Assessment/Plan: Right buttock abscess with necrotic material - Extensive I&D in OR by Dr. Aranda, POD #3. MRSA on wound Cx. I evaluated the wound and discussed with case with ID today. He is afebrile, but wbc's trending up. Wound vac off due to being soiled by diarrhea. Wet to dry dressing in place. -Cont IV Vancomycin, dosing per ID -Surgery following, may need additional surgery -Replace wound vac per surgery Diarrhea - new today. -check C diff. If negative, will give loperamide if ok with surgery to prevent wound contamination -may need to consider rectal tube, though doubt pt would tolerate this H/O CVA - residual dysphagia, right hemiparesis and dysarthria -cont asa, statin Dysphagia - has feeding tube -cont meds via tube Holliday's esophagus - cont PPI Hypertension - cont outpt meds Hypothyroid - cont levothyroxine Depression - cont outpt meds Full code DVP PPLX - Lovenox Dispo - cont inpt. Ethics consult requested to help determine capacity as pt seems unrealistic about desired care plan. Wants to return to [facility], but may not be feasible with wound care needs. Subjective: Pt wants to go home. He had diarrhea this am, which soiled his wound vac and RN had to remove it. Wet to dry dressing placed. No fevers. No CP or SOB. Baseline dysphagia and dysarthria. Objective: Vital Signs Temp Pulse Resp BP Pulse Ox 36.7 C 78 18 127/83 H 89 L 10/31/16 07:30 10/31/16 07:30 10/31/16 07:30 10/31/16 07:30 10/31/16 07:30 Microbiology 10/28/16 15:45 Gram Stain - Final Buttock - Swab 10/28/16 15:45 Gram Stain - Final Buttock - Tissue Laboratory Results 10/31/16 04:13 10/30/16 04:15 10/30/16 10/31/16 11/01/16 05:59 05:59 05:59 Intake Total 800 35 Output Total 850 300 Balance -50 -300 35 PT 14.5 SEC (12.0-15.0) 10/28/16 10:06 INR 1.14 (0.83-1.16) 10/28/16 10:06 - Physical Exam Constitutional: no apparent distress Eyes: PERRL Ears, Nose, Mouth, Throat: moist mucous membranes Cardiovascular: regular rate and rhythym Respiratory: no respiratory distress Gastrointestinal: normoactive bowel sounds, soft, non-tender abdomen Skin: other (Right buttock wound with decreased erythema, wet to dry dressing in place) Musculoskeletal: other (right hemiplegia) Psychiatric: poor judgement ICD10 Worksheet Patient Problems: Problems Problem Status Onset Cellulitis Acute Pressure ulcer, buttock Acute Cellulitis Acute MRSA (methicillin resistant Staphylococcus aureus) Acute 08/25/15
[2016-10-31] MEDS: VANCOMYCIN 750 MG in D5W 150 ML IV SCH (20:41)
[2016-10-31] MEDS: MIRTAZAPINE 30 MG ODTAB PO SCH (20:42)
[2016-10-31] MEDS: DOXAZOSIN MESYLATE 1 MG TAB TUBE SCH (20:42)
[2016-10-31] MEDS: ATORVASTATIN CALCIUM 10 MG TAB TUBE SCH (20:44)
[2016-10-31] MEDS: ACETAMINOPHEN 650 MG/20.3 ML UDCUP TUBE SCH (20:45)
[2016-10-31] MEDS: RANITIDINE HCL 150 MG/10 ML UDCUP TUBE SCH (20:47)
[2016-10-31] MEDS: clonazePAM 0.5 MG TAB TUBE SCH (21:10)
[2016-11-01] MEDS: LEVOTHYROXINE 25 MCG TAB TUBE SCH (04:51)
[2016-11-01] MEDS: TEARS/DEXTRAN 70/HYPROMELLOSE 15 ML OPHT.BTL EACHEYE SCH ×3 (04:53→18:13)
[2016-11-01 06:16] LABS: ADD DIFF? YES; ADD MORPH? NO; ADD SCAN? NO; ATYPICAL LYMPHOCYTE FLAG 30 (0-99); FRAGMENT RBC FLAG 0 (0-99); HEMATOCRIT 40.8 % (40.0-51.0); HEMOGLOBIN 13.4 g/dL (13.7-17.5); LEFT SHIFT FLG 30 (0-99); LIPEMIA HEMOLYSIS FLAG 80 (0-99); MEAN CELL HEMOGLOBIN 31.5 pg (27.9-34.1); MEAN CELL HEMOGLOBIN CONCENTR. 32.8 g/dL (32.4-36.7); MEAN PLATELET VOLUME 9.9 fL (8.7-11.7); PLATELET CLUMPS FLAG 0 (0-99); PLATELET COUNT 311 10^3/uL (150-400); RED BLOOD CELL COUNT 4.25 10^6/uL (4.40-6.38); RED CELL DISTRIBUTION WIDTH 14.1 % (11.5-15.2)
[2016-11-01 07:08] LABS: PLATELET ESTIMATE ADEQUATE (ADEQ)
--- NOTE | 2016-11-01 07:45 | SOAPPROG ---
SOAP Progress Note Assessment/Plan: Assessment: Plan: Subjective: vss, af wound examined- no need for further or debridements- cleaning u nicely. wound vac came off yesterday. will tka a few more days at least until all is grnaulating, but then will go back to [place] for primary closure over a drain. Objective: Vital Signs Temp Pulse Resp BP Pulse Ox 36.6 C 82 14 125/85 H 91 L 11/01/16 07:31 11/01/16 07:31 11/01/16 07:31 11/01/16 07:31 11/01/16 07:31 Microbiology 10/28/16 15:45 Gram Stain - Final Buttock - Swab 10/28/16 15:45 Gram Stain - Final Buttock - Tissue Laboratory Results 11/01/16 05:50 10/30/16 04:15 10/31/16 11/01/16 11/02/16 05:59 05:59 05:59 Intake Total 485 Output Total 300 Balance -300 485 PT 14.5 SEC (12.0-15.0) 10/28/16 10:06 INR 1.14 (0.83-1.16) 10/28/16 10:06 ICD10 Worksheet Patient Problems: Problems Problem Status Onset Cellulitis Acute Pressure ulcer, buttock Acute Cellulitis Acute MRSA (methicillin resistant Staphylococcus aureus) Acute 08/25/15
[2016-11-01] MEDS: ENOXAPARIN 40 MG/0.4 ML SYR SC SCH (08:39)
[2016-11-01] MEDS: VANCOMYCIN 750 MG in D5W 150 ML IV SCH ×2 (08:39→22:06)
[2016-11-01] MEDS: ASCORBIC ACID 500 MG TAB TUBE SCH ×2 (08:39→22:27)
[2016-11-01] MEDS: guaiFENesin 200 MG/10 ML UDCUP TUBE SCH ×2 (08:39→22:24)
[2016-11-01] MEDS: ASPIRIN 81 MG CHEWABLE TAB PO SCH (08:39)
[2016-11-01] MEDS: GLYCOPYRROLATE 1 MG TAB TUBE SCH ×2 (08:39→22:29)
[2016-11-01] MEDS ORDERED: DIPHENOXYLATE/ATROPINE LOMOTIL 1 TAB PO PRN (10:06)
--- NOTE | 2016-11-01 10:11 | HOSPPROG ---
Hospitalist Progress Note Assessment/Plan: Right buttock abscess with necrotic material - Extensive I&D in OR by Dr. Aranda, POD #4. MRSA on wound Cx. I evaluated the wound and discussed with case with surgery and ID today. He is afebrile, wbc's trending down. Wound vac off due to being soiled by diarrhea, but the veraflow wound vac was quite effective during it's short duration. Wound care following, aims to replace wound vac, but still soiling with diarrhea. -Cont IV Vancomycin, dosing per ID -Surgery following, planning for primary closure at some point -Wound care following Diarrhea - C diff negative -Start Lomotil -may need to consider rectal tube if not slowing down H/O CVA - residual dysphagia, right hemiparesis and dysarthria -cont asa, statin Dysphagia - has feeding tube -cont meds via tube Holliday's esophagus - cont PPI Hypertension - cont outpt meds Hypothyroid - cont levothyroxine Depression - cont outpt meds Full code DVP PPLX - Lovenox Dispo - cont inpt. Ethics consult requested to help determine capacity as pt seems unrealistic about care plan. Wants to return to [facility], but may not be feasible with wound care needs. Subjective: Pt continues to have diarrhea, soiling wound. Wound care and RN working tirelessly to manage this issue. He is more reasonable about staying in the hospital today. No fevers/chills. Has a lot of pain with movement. Objective: Vital Signs Temp Pulse Resp BP Pulse Ox 36.6 C 82 14 125/85 H 91 L 11/01/16 07:31 11/01/16 07:31 11/01/16 07:31 11/01/16 07:31 11/01/16 07:31 Microbiology 10/28/16 15:45 Gram Stain - Final Buttock - Swab 10/28/16 15:45 Gram Stain - Final Buttock - Tissue Laboratory Results 11/01/16 05:50 10/30/16 04:15 10/31/16 11/01/16 11/02/16 05:59 05:59 05:59 Intake Total 485 Output Total 300 Balance -300 485 PT 14.5 SEC (12.0-15.0) 10/28/16 10:06 INR 1.14 (0.83-1.16) 10/28/16 10:06 - Physical Exam Constitutional: no apparent distress Eyes: PERRL Ears, Nose, Mouth, Throat: moist mucous membranes Cardiovascular: regular rate and rhythym Respiratory: no respiratory distress, clear to auscultation Gastrointestinal: normoactive bowel sounds, soft, non-tender abdomen Skin: other (right buttock with large open wound, some good granulation tissue forming, decreased erythema) Musculoskeletal: full muscle strength Neurologic: AAOx3 Psychiatric: anxious ICD10 Worksheet Patient Problems: Problems Problem Status Onset Cellulitis Acute Pressure ulcer, buttock Acute Cellulitis Acute MRSA (methicillin resistant Staphylococcus aureus) Acute 08/25/15
[2016-11-01] MEDS: PANTOPRAZOLE SODIUM 40 MG in NS 100 ML IV SCH ×2 (10:56→11:17)
[2016-11-01] MEDS ORDERED: DIPHENOXYLATE/ATROPINE LOMOTIL 1 TAB TUBE PRN (11:59)
[2016-11-01] MEDS ORDERED: ACETAMINOPHEN 650 MG/20.3 ML UDCUP TUBE PRN (12:13)
[2016-11-01] MEDS ORDERED: oxyCODONE IR 5 MG TAB TUBE PRN (12:14)
--- NOTE | 2016-11-01 12:37 | WOCRNPDOC ---
WOCRN Advanced Assessment Note - Skin Integrity Problem, Advanced Assess Right Ischial Tuberosity Pressure Injury Dressing Type: ABD Pad, Gauze Dressing Description: Intact, Soiled (feces) Integumentary Issue Intervention: Dressing Changed Wound Bed Constitution: Granulation Tissue, Smooth Tissue Skin Integrity Problem Comment: Wound bed clean and red. Nora wound erythema has reduced, however there appears to be some remaining around greater trochanter. Patient stooling non stop liquid stools. Wound RN attempted to keep area under patient clean for 50 min in hopes of reapplying wound vac without success. Patient continued to stool. Finally a clean moist to dry dressing was able to be placed. Will attempt to follow up with nurse later today to see if the stooling has slowed down for vac reapplication. Emory MCFARLAND in room for all of care. Stanislaw COUGHLIN assisted.
--- NOTE | 2016-11-01 18:38 | PCMIDPN ---
Assessment/Plan: Assessment: Right buttock abscess. Extensive. Secondary to MRSA. The appearance of the ulcer today is improved after surgical drainage and wound care. The concern is that his stool stream is continuing to contaminate the ulcer bed. They are going to attempt some antidiarrheal medication to firm up his stools to try to manage this problem. The other alternative is to use a rectal tube for diverting the stool stream. Patient is continuing on vancomycin monotherapy at 750 mg twice daily. Do not see any need to change that at this point. Trough reasonable at 14.9. Plan: 1. Continue vancomycin at present dose. 2. Recheck vanc trough in 2-3 days. 3. Follow appearance the wound. 4. Follow success of diversion of stool stream. Subjective: Patient is resting in his hospital bed. Underlying right-sided paralysis due to CVA many years ago. Patient states he is doing fairly well although does not like his diet being restricted. Denies fevers or chills. Objective: Vancomycin #4 Vital Signs Temp Pulse Resp BP Pulse Ox 37.0 C 82 16 139/85 H 92 11/01/16 16:00 11/01/16 16:00 11/01/16 16:00 11/01/16 16:00 11/01/16 16:00 Microbiology 10/28/16 15:45 Gram Stain - Final Buttock - Swab 10/28/16 15:45 Gram Stain - Final Buttock - Tissue Laboratory Results 11/01/16 05:50 10/30/16 04:15 10/31/16 11/01/16 11/02/16 05:59 05:59 05:59 Intake Total 485 200 Output Total 300 125 Balance -300 485 75 - Physical Exam General Appearance: WD/WN, alert, no apparent distress, non-toxic Respiratory: lungs clear, normal breath sounds, No respiratory distress Cardiac/Chest: regular rate, rhythm, No tachycardia Skin: normal color, warm/dry, other (Open wound on the right buttock status post I and D. base of wound with healthy granulation tissue.), No rash Neuro/Psych: alert, normal mood/affect, oriented x 3 ICD10 Worksheet Patient Problems: Problems Problem Status Onset Cellulitis Acute Pressure ulcer, buttock Acute Cellulitis Acute MRSA (methicillin resistant Staphylococcus aureus) Acute 08/25/15
[2016-11-01] MEDS: ACETAMINOPHEN 650 MG/20.3 ML UDCUP TUBE SCH (22:14)
[2016-11-01] MEDS: RANITIDINE HCL 150 MG/10 ML UDCUP TUBE SCH (22:23)
[2016-11-01] MEDS: ATORVASTATIN CALCIUM 10 MG TAB TUBE SCH (22:25)
[2016-11-01] MEDS: clonazePAM 0.5 MG TAB TUBE SCH (22:25)
[2016-11-01] MEDS: DOXAZOSIN MESYLATE 1 MG TAB TUBE SCH (22:28)
[2016-11-02] MEDS: TEARS/DEXTRAN 70/HYPROMELLOSE 15 ML OPHT.BTL EACHEYE SCH ×5 (00:18→21:30)
[2016-11-02] MEDS: MIRTAZAPINE 30 MG ODTAB PO SCH ×3 (00:29→21:13)
[2016-11-02] MEDS: LEVOTHYROXINE 25 MCG TAB TUBE SCH (05:49)
[2016-11-02 06:07] LABS: ADD DIFF? YES; ADD MORPH? NO; ADD SCAN? NO; ATYPICAL LYMPHOCYTE FLAG 20 (0-99); FRAGMENT RBC FLAG 0 (0-99); HEMATOCRIT 41.4 % (40.0-51.0); HEMOGLOBIN 13.8 g/dL (13.7-17.5); LEFT SHIFT FLG 20 (0-99); LIPEMIA HEMOLYSIS FLAG 80 (0-99); MEAN CELL HEMOGLOBIN 31.7 pg (27.9-34.1); MEAN CELL HEMOGLOBIN CONCENTR. 33.3 g/dL (32.4-36.7); PLATELET CLUMPS FLAG 10 (0-99); PLATELET COUNT 308 10^3/uL (150-400); RED BLOOD CELL COUNT 4.36 10^6/uL (4.40-6.38)
[2016-11-02 06:20] LABS: ANION GAP 7 mEq/L (8-16); CARBON DIOXIDE 31 mEq/l (22-31); CHLORIDE 101 mEq/L (97-110); CREATININE 0.7 mg/dL (0.7-1.3); GLOMERULAR FILTRATION RATE > 60; GLUCOSE 92 mg/dL (70-100); POTASSIUM 4.2 mEq/L (3.5-5.2); SODIUM 139 mEq/L (134-144)
[2016-11-02 06:44] LABS: PLATELET ESTIMATE ADEQUATE (ADEQ); STOMATOCYTES 1+
[2016-11-02] MEDS: PANTOPRAZOLE SODIUM 40 MG in NS 100 ML IV SCH ×2 (08:13→20:47)
[2016-11-02] MEDS: ENOXAPARIN 40 MG/0.4 ML SYR SC SCH (08:13)
[2016-11-02] MEDS: guaiFENesin 200 MG/10 ML UDCUP TUBE SCH ×2 (08:13→21:04)
[2016-11-02] MEDS: VANCOMYCIN 750 MG in D5W 150 ML IV SCH ×2 (08:13→21:38)
[2016-11-02] MEDS: ASPIRIN 81 MG CHEWABLE TAB TUBE SCH (08:14)
[2016-11-02] MEDS: GLYCOPYRROLATE 1 MG TAB TUBE SCH ×2 (08:14→21:14)
[2016-11-02] MEDS: ASCORBIC ACID 500 MG TAB TUBE SCH ×2 (08:14→21:14)
--- NOTE | 2016-11-02 09:28 | HOSPPROG ---
Hospitalist Progress Note Assessment/Plan: Right buttock abscess with necrotic material - Extensive I&D in OR by Dr. Aranda, POD #5. MRSA on wound Cx. BCx's NGTD. I evaluated the wound and discussed with case with surgery and ID. He is afebrile, wbc's trending down. Wound vac off due to being soiled by diarrhea, but the veraflow wound vac was quite effective during it's short duration. -Cont IV Vancomycin, dosing per ID -Surgery following, planning for primary closure at some point -Wound care following, aim to replace wound vac if able Diarrhea - C diff negative -Cont Lomotil prn -Rectal tube to avoid fecal contamination of wound H/O CVA - residual dysphagia, right hemiparesis and dysarthria -cont asa, statin Dysphagia - has feeding tube -cont meds via tube Holliday's esophagus - cont PPI Hypertension - cont outpt meds Hypothyroid - cont levothyroxine Depression - cont outpt meds Full code DVP PPLX - Lovenox Dispo - cont inpt. Ethics consult requested to help determine capacity as pt seems unrealistic about care plan. Wants to return to [facility], but may not be feasible with wound care needs. Subjective: PT doing okay today. Tolerating rectal tube. Pain better controlled. No fevers/chills. No CP/SOB. Per RN, he refuses to follow aspiration precautions, has baseline dysphagia due to prior stroke. Objective: Vital Signs Temp Pulse Resp BP Pulse Ox 36.3 C 75 16 121/73 H 88 L 11/02/16 04:00 11/02/16 02:26 11/02/16 04:00 11/02/16 02:26 11/02/16 02:26 Microbiology 10/28/16 15:45 Gram Stain - Final Buttock - Swab 10/28/16 15:45 Gram Stain - Final Buttock - Tissue Laboratory Results 11/02/16 05:40 11/02/16 05:40 11/01/16 11/02/16 11/03/16 05:59 05:59 05:59 Intake Total 485 200 Output Total 825 Balance 485 -625 PT 14.5 SEC (12.0-15.0) 10/28/16 10:06 INR 1.14 (0.83-1.16) 10/28/16 10:06 - Physical Exam Constitutional: no apparent distress Eyes: PERRL Ears, Nose, Mouth, Throat: moist mucous membranes Cardiovascular: regular rate and rhythym Respiratory: no respiratory distress Gastrointestinal: normoactive bowel sounds, soft, non-tender abdomen Genitourinary: other (rectal tube with stool in proximal tubing) Skin: other Musculoskeletal: other (RLE buttock wound dressing c/d/i, decreased surrounding erythema) Neurologic: AAOx3 Psychiatric: interacting appropriately ICD10 Worksheet Patient Problems: Problems Problem Status Onset Cellulitis Acute Pressure ulcer, buttock Acute Cellulitis Acute MRSA (methicillin resistant Staphylococcus aureus) Acute 08/25/15
--- NOTE | 2016-11-02 10:46 | PCMIDPN ---
Assessment/Plan: Assessment/Plan: 1. R buttock/hip cellulitis with large abscess cavity (6.5x18x3 cm): s/p debridement 10/28. - wbc improved overall - currently only on Vancomycin -Cx with mostly MRSA and rare prevotella.. -Fecal soiling of wound noted and hopefully rectal marshall with help -Continue therapy with close monitoring for ongoing improvement. -may need to broaden therapy if there is regression in clinical progress. Meds vanco 750mg q12- 10/31/16 Subjective: afebrile. has rectal marshall now. denies sob, abd pain, or swelling of legs. Objective: Vital Signs Temp Pulse Resp BP Pulse Ox 36.3 C 75 16 121/73 H 88 L 11/02/16 04:00 11/02/16 02:26 11/02/16 04:00 11/02/16 02:26 11/02/16 02:26 Microbiology 10/28/16 15:45 Gram Stain - Final Buttock - Swab 10/28/16 15:45 Gram Stain - Final Buttock - Tissue Laboratory Results 11/02/16 05:40 11/02/16 05:40 11/01/16 11/02/16 11/03/16 05:59 05:59 05:59 Intake Total 485 200 Output Total 825 Balance 485 -625 - Physical Exam General Appearance: alert, no apparent distress Respiratory: lungs clear Cardiac/Chest: regular rate, rhythm Extremities: No swelling Abdomen: normal bowel sounds, non-tender, soft, No distended Rectal: other (rectal marshall) Skin: No rash ICD10 Worksheet Patient Problems: Problems Problem Status Onset Cellulitis Acute Pressure ulcer, buttock Acute Cellulitis Acute MRSA (methicillin resistant Staphylococcus aureus) Acute 08/25/15
--- NOTE | 2016-11-02 14:33 | WOCRNPDOC ---
WOCRN Advanced Assessment Note - Skin Integrity Problem, Advanced Assess Right Ischial Tuberosity Pressure Injury Dressing Type: Gauze Dressing Description: Shadowed Exudate Amount: Moderate Exudate Characteristic(s): Serosanguinous Integumentary Issue Intervention: Dressing Changed Nora Wound Tissue: Erythema (mild) Wound Bed Constitution: Granulation Tissue (80%), Smooth Tissue (20%), Tunneling (at 6 oclock 4 cm), Undermining (7-2 oclcok 4 cm, 2- 7 oclock 3.8 cm ) Wound Edges: Not Attached Site Measurement - Head-to-Toe Length X Width X Depth (cm): 6.5x18x1 Pressure Injury Stage: Stage 4 Pressure Injury Present on Admit: Yes Skin Integrity Problem Comment: Vac reapplied with veraflo cleanse foam under undermining lip and regular veraflo foam to wound bed. Bridged to right lower abdomen. Mastisol applied at inferior wound edge to help drape adhere. Vac settings restared at - 125 mm Hg suction with 60 ml instillation Q3 hours for 5 min dwell time with the remainder of the vashe instillation. Move to NS instillation when Vashe has run out. Lizette Flores RN and Guadalupe RN in room for care. Vac working with no leaks upon completion.
[2016-11-02] MEDS: ACETAMINOPHEN 650 MG/20.3 ML UDCUP TUBE SCH (21:03)
[2016-11-02] MEDS: RANITIDINE HCL 150 MG/10 ML UDCUP TUBE SCH (21:09)
[2016-11-02] MEDS: clonazePAM 0.5 MG TAB TUBE SCH (21:13)
[2016-11-02] MEDS: DOXAZOSIN MESYLATE 1 MG TAB TUBE SCH (21:13)
[2016-11-02] MEDS: ATORVASTATIN CALCIUM 10 MG TAB TUBE SCH (21:14)
--- NOTE | 2016-11-02 23:36 | SOAPPROG ---
SOAP Progress Note Assessment/Plan: Assessment: Plan: Subjective: vss, af wound inspected doing quite well, but may not be optimal on tuesday-willl check again daily. Objective: Vital Signs Temp Pulse Resp BP Pulse Ox 36.9 C 97 18 133/88 H 90 L 11/02/16 20:00 11/02/16 20:00 11/02/16 20:00 11/02/16 20:00 11/02/16 20:00 Microbiology 10/28/16 15:45 Gram Stain - Final Buttock - Swab 10/28/16 15:45 Gram Stain - Final Buttock - Tissue 10/28/16 15:45 Mycobacterial Smear (CHRISTI) - Final Buttock - Tissue Laboratory Results 11/02/16 05:40 11/02/16 05:40 11/01/16 11/02/16 11/03/16 05:59 05:59 05:59 Intake Total 485 200 400 Output Total 825 Balance 485 -625 400 PT 14.5 SEC (12.0-15.0) 10/28/16 10:06 INR 1.14 (0.83-1.16) 10/28/16 10:06 ICD10 Worksheet Patient Problems: Problems Problem Status Onset Cellulitis Acute Pressure ulcer, buttock Acute Cellulitis Acute MRSA (methicillin resistant Staphylococcus aureus) Acute 08/25/15
[2016-11-03] MEDS: LEVOTHYROXINE 25 MCG TAB TUBE SCH (05:15)
[2016-11-03] MEDS: TEARS/DEXTRAN 70/HYPROMELLOSE 15 ML OPHT.BTL EACHEYE SCH ×4 (05:51→21:25)
[2016-11-03] MEDS: VANCOMYCIN 750 MG in D5W 150 ML IV SCH ×2 (09:08→20:52)
[2016-11-03] MEDS: GLYCOPYRROLATE 1 MG TAB TUBE SCH ×2 (09:20→21:25)
[2016-11-03] MEDS: ASCORBIC ACID 500 MG TAB TUBE SCH ×2 (09:20→21:24)
[2016-11-03] MEDS: PANTOPRAZOLE SODIUM 40 MG in NS 100 ML IV SCH ×2 (09:21→21:23)
[2016-11-03] MEDS: guaiFENesin 200 MG/10 ML UDCUP TUBE SCH ×2 (09:21→21:24)
[2016-11-03] MEDS: ENOXAPARIN 40 MG/0.4 ML SYR SC SCH (09:21)
[2016-11-03] MEDS: ASPIRIN 81 MG CHEWABLE TAB TUBE SCH (09:24)
--- NOTE | 2016-11-03 09:47 | HOSPPROG ---
Hospitalist Progress Note Assessment/Plan: Large right buttock abscess with necrotic material due to severe pressure injury in setting of hemiparesis due to prior CVA - Extensive I&D in OR by Dr. Aranda, POD #6. MRSA on wound Cx. BCx's NGTD. I evaluated the wound and discussed with case with surgery and ID. He is afebrile, wbc's trending down. Wound vac was previously removed due to wound being soiled by diarrhea. Rectal tube was placed and wound vac replaced. Stool thicker now. -Cont IV Vancomycin, dosing per ID -Surgery following, planning for primary closure at some point -Wound care following, wound vac care Diarrhea - Resolving, C diff negative -remove rectal tube -Cont Lomotil prn H/O CVA - residual dysphagia, right hemiparesis and dysarthria -cont asa (added this hospitalization), statin Dysphagia - has feeding tube -cont meds via tube Holliday's esophagus - cont PPI Hypertension - cont outpt meds Hypothyroid - cont levothyroxine Depression - cont outpt meds Full code DVP PPLX - Lovenox Dispo - cont inpt. Pt hopes to return to [place]. Subjective: Pt in better spirits today. Pain controlled. Diarrhea resolving. No fevers. No CP or SOB. Baseline dysarthria and dysphagia. Objective: Vital Signs Temp Pulse Resp BP Pulse Ox 36.9 C 88 16 131/88 H 90 L 11/03/16 08:00 11/03/16 08:00 11/03/16 08:00 11/03/16 08:00 11/03/16 08:00 Microbiology 10/28/16 15:45 Gram Stain - Final Buttock - Swab 10/28/16 15:45 Gram Stain - Final Buttock - Tissue 10/28/16 15:45 Mycobacterial Smear (CHRISTI) - Final Buttock - Tissue Laboratory Results 11/02/16 05:40 11/02/16 05:40 11/02/16 11/03/16 11/04/16 05:59 05:59 05:59 Intake Total 200 400 Output Total 825 Balance -625 400 PT 14.5 SEC (12.0-15.0) 10/28/16 10:06 INR 1.14 (0.83-1.16) 03/23/17 10:06 - Physical Exam Constitutional: no apparent distress Eyes: PERRL Ears, Nose, Mouth, Throat: moist mucous membranes Cardiovascular: regular rate and rhythym Respiratory: no respiratory distress Gastrointestinal: normoactive bowel sounds, soft, non-tender abdomen Skin: other (right hip wound vac in place with decreased surrounding erythema) Neurologic: other (right hemiparesis, dysarthria at baseline) Psychiatric: interacting appropriately ICD10 Worksheet Patient Problems: Problems Problem Status Onset Cellulitis Acute Pressure ulcer, buttock Acute Cellulitis Acute MRSA (methicillin resistant Staphylococcus aureus) Acute 08/25/15
--- NOTE | 2016-11-03 17:44 | WOCRNPDOC ---
WOCRN Advanced Assessment Note - Skin Integrity Problem, Advanced Assess Right Ischial Tuberosity Pressure Injury Dressing Type: Wound Vac David Wound Tissue: Erythema Skin Integrity Problem Comment: RN asked wound RN to check on patient's wound as she was concerned about some david wound erythema. David wound erythema unchanged since assessment yesterday. Moisture noted on chux and small leak in vac dressing noted at trac pad and at inferior edge of wound. Both reinforced. Dressing soaked and no more leaks noted. Vac settings altered to instill every 4 hours to accomodate patient who was quite upset at the instillation every 3 hours. Also some vashe seemed to remain in dressing so suction was raised to - 150 mm Hg. Bernardo COUGHLIN in room for all care.
--- NOTE | 2016-11-03 17:55 | WOCRNPDOC ---
WOCRJae Advanced Assessment Note - Skin Integrity Problem, Advanced Assess Right Ischial Tuberosity Pressure Injury Dressing Type: Gauze Dressing Description: Clean/Dry, Intact Exudate Amount: Moderate Exudate Characteristic(s): Serosanguinous Integumentary Issue Intervention: Dressing Changed Nora Wound Tissue: Erythema Wound Bed Color: Red, Yellow Wound Bed Constitution: Smooth Tissue, Tunneling (4 cm at inferior end of wound) , Undermining (superior edge 4 cm, inferior edge 3.5 cm), Loose Slough (15%) Site Measurement - Head-to-Toe Length X Width X Depth (cm): 8x15x1 Pressure Injury Stage: Stage 4 Pressure Injury Present on Admit: Yes Skin Integrity Problem Comment: Late entry: This was performed on Tue11/02/16 at 14:00. Cleaned with wound cleanser. Skin prep applied periwound and drape. Mastisol at inferior end of wound. Draped to right lower abdomen. Veraflo cleanse dressing under undermining lip (superior and inferior wound). Remainder of wound placed veraflo black foam that was bridged to lower abdomen. Vac set with vashe instillation of 60 ml every 3 hours for 5 min at - 125 mm Hg. Working with no leaks. Guadalupe COUGHLIN and Lizette Sylvester RN in room for care. Dr Banda visualized wound prior to vac placement.
--- NOTE | 2016-11-03 19:45 | PCMIDPN ---
Assessment/Plan: #R buttock/hip cellulitis with enormous abscess cavity (6.5x18x3 cm) s/p debridement 10/28. wound vac in place at time of my exam, but minimal surrounding cellulitis. May be planning primary closure in the next couple days. --continue vancomycin, Vanco T = 12.6 yesterday. No adjustment of antibiotics for rare prevotella - treatment adequate with debridement --assessing needed duration of therapy #Diarrhea resolved Cdiff negative meds vancomycin 750gm IV q12h, #6 micro 10/28 blood cx (2) : NGTD 10/28 OR cx : 4+MRSA, clovis=1; rare Prevotella coordination of care with dr. fletcher Subjective: much more cheerful today more cooperative with staying at hospital today Objective: Vital Signs Temp Pulse Resp BP Pulse Ox 36.9 C 88 16 120/78 89 L 11/03/16 16:00 11/03/16 16:00 11/03/16 16:00 11/03/16 16:00 11/03/16 16:00 Microbiology 10/28/16 15:45 Gram Stain - Final Buttock - Tissue 10/28/16 15:45 Gram Stain - Final Buttock - Swab Laboratory Results 11/02/16 05:40 11/02/16 05:40 11/02/16 11/03/16 11/04/16 05:59 05:59 05:59 Intake Total 200 400 Output Total 825 Balance -625 400 Gen: thin, disheveled male, HEENT: poor dentition Resp: breathing easy R hip with some mild erythema immediately around wound, wound vac in place ICD10 Worksheet Patient Problems: Problems Problem Status Onset Cellulitis Acute Pressure ulcer, buttock Acute Cellulitis Acute MRSA (methicillin resistant Staphylococcus aureus) Acute 08/25/15
[2016-11-03] MEDS: RANITIDINE HCL 150 MG/10 ML UDCUP TUBE SCH (21:24)
[2016-11-03] MEDS: clonazePAM 0.5 MG TAB TUBE SCH (21:24)
[2016-11-03] MEDS: ACETAMINOPHEN 650 MG/20.3 ML UDCUP TUBE SCH (21:24)
[2016-11-03] MEDS: MIRTAZAPINE 30 MG ODTAB PO SCH (21:25)
[2016-11-03] MEDS: ATORVASTATIN CALCIUM 10 MG TAB TUBE SCH (21:25)
[2016-11-03] MEDS: DOXAZOSIN MESYLATE 1 MG TAB TUBE SCH (21:25)
[2016-11-04] MEDS: LEVOTHYROXINE 25 MCG TAB TUBE SCH (04:31)
[2016-11-04] MEDS: TEARS/DEXTRAN 70/HYPROMELLOSE 15 ML OPHT.BTL EACHEYE SCH ×4 (04:55→22:09)
[2016-11-04] MEDS: VANCOMYCIN 750 MG in D5W 150 ML IV SCH ×2 (10:15→20:30)
--- NOTE | 2016-11-04 10:28 | SOAPPROG ---
SOAP Progress Note Assessment/Plan: Assessment: Plan: Subjective: vss, af vac to be changed tomorrow, and will see if wound ready to close. Objective: Vital Signs Temp Pulse Resp BP Pulse Ox 36.6 C 83 16 126/87 H 88 L 11/04/16 07:39 11/04/16 07:39 11/04/16 07:39 11/04/16 07:39 11/04/16 07:39 Microbiology 10/28/16 15:45 Gram Stain - Final Buttock - Tissue 10/28/16 15:45 Gram Stain - Final Buttock - Swab Laboratory Results 11/02/16 05:40 11/02/16 05:40 11/03/16 11/04/16 11/05/16 05:59 05:59 05:59 Intake Total 400 Balance 400 PT 14.5 SEC (12.0-15.0) 10/28/16 10:06 INR 1.14 (0.83-1.16) 10/28/16 10:06 ICD10 Worksheet Patient Problems: Problems Problem Status Onset Cellulitis Acute Pressure ulcer, buttock Acute Cellulitis Acute MRSA (methicillin resistant Staphylococcus aureus) Acute 08/25/15
[2016-11-04] MEDS: ENOXAPARIN 40 MG/0.4 ML SYR SC SCH (10:34)
[2016-11-04] MEDS: guaiFENesin 200 MG/10 ML UDCUP TUBE SCH ×2 (10:35→21:53)
[2016-11-04] MEDS: ASPIRIN 81 MG CHEWABLE TAB TUBE SCH (10:35)
[2016-11-04] MEDS: ASCORBIC ACID 500 MG TAB TUBE SCH ×2 (10:35→21:52)
[2016-11-04] MEDS: GLYCOPYRROLATE 1 MG TAB TUBE SCH ×2 (10:35→21:52)
[2016-11-04] MEDS: PANTOPRAZOLE SODIUM 40 MG in NS 100 ML IV SCH ×2 (11:55→22:18)
--- NOTE | 2016-11-04 15:19 | HOSPPROG ---
Hospitalist Progress Note Assessment/Plan: 56-year-old male with a prior CVA and mobility issues presents with a right buttocks abscess which has been drained and currently has a wound VAC. We are following the wound for healing and if it is sufficiently heels the wound VAC will be removed and the wound then primarily closed by surgery. Patient is new to me today. - Right buttocks abscess with necrotic Material with a wound VAC in place at this time. Extensive I and D in the OR was performed by Dr. Hoover with [facility]. This is postop day 7. cultures have grown MRSA. he is afebrile and white count is declining. Currently on IV vancomycin and followed by ID. - Dysphagia: This is a result of a remote CVA. He has a right tuan paresis dysarthria and swallowing difficulties. A feeding tube is in place. Patient refuses to use the feeding tube and continues to eat. This has not been a problem up until late today when the patient suddenly had a vomiting and a chest x-ray was shown to be clear without signs of aspiration. Lung exam revealed very coarse breath sounds. It is certainly possible that the patient aspirated and simply did not show up on the chest x-ray. Plan here is to follow his oxygenation and clinical status and treat with bronchodilators. - Diarrhea: This seems to have resolved C diff was negative. Will continue the Lomotil. - History of CVA: Is residual right-sided Tuan paresis and dysarthria. Dysphagia is also prominent and is difficult to understand though his speech can be understood if you follow for sufficiently long time. Following the episode of vomiting I have made the patient NPO and will begin tube feedings. - Chronic medical problems: Holliday's esophagus and will continue PPI medication, hypertension on outpatient medications and treated well, hypothyroidism and will continue levothyroxine. - DVT prophylaxis: Lovenox - code: Full Plan: Follow his respiratory status for possibility of aspiration, continue wound VAC care and possible primary closure in 1-2 days by surgery. Wound VAC will be removed tomorrow. Continue vancomycin antibiotic disposition: Patient will return to [place]. No anticipated discharge date is known Subjective: patient wants to be out of bed and sit in a chair. He is upset about being in a bed all the time. He has no complaints of chest pain shortness of breath abdominal pain. Diarrhea has resolved. Right buttocks is nonpainful. Wound VAC is in place Objective: Vital Signs Temp Pulse Resp BP Pulse Ox 36.6 C 83 16 126/87 H 87 L 11/04/16 07:39 11/04/16 07:39 11/04/16 07:39 11/04/16 07:39 11/04/16 12:45 Microbiology 10/28/16 15:45 Gram Stain - Final Buttock - Tissue Anaerobic Culture - Final MRSA 10/28/16 15:45 Gram Stain - Final Buttock - Swab Anaerobic Culture - Final MRSA Prevotella [place] Laboratory Results 11/02/16 05:40 11/02/16 05:40 11/03/16 11/04/16 11/05/16 05:59 05:59 05:59 Intake Total 400 Balance 400 PT 14.5 SEC (12.0-15.0) 10/28/16 10:06 INR 1.14 (0.83-1.16) 10/28/16 10:06 - Time Spent With Patient Time Spent with Patient: greater than 35 minutes Time Spent with Patient: Greater than 35 minutes spent on this patients care, greater than 50% of time spent counseling, educating, and coordinating care regarding the above mentioned plan. - Pending Discharge Pending Discharge Within 24 Hours: No Pending Discharge Within 48 Hours: No - Physical Exam Constitutional: no apparent distress, chronically ill appearing Eyes: PERRL Ears, Nose, Mouth, Throat: moist mucous membranes, hearing normal Cardiovascular: regular rate and rhythym, systolic murmur Respiratory: bronchial breath sounds, rhonchi Gastrointestinal: normoactive bowel sounds, soft, non-tender abdomen, no palpable masses Genitourinary: no bladder fullness Skin: warm, other ( right buttock shows a wound VAC in place without surrounding erythema or areas of tenderness.) Musculoskeletal: other ( Right-sided weakness.) Neurologic: AAOx3, other ( Prominent dysarthria.) Psychiatric: interacting appropriately, other ( Review did decision making capacity of the patient during my interaction with him. I believe the patient has full decision-making capacity. I also discussed his decision capacity with the ethics personnel, Kyra. The ethics have also concluded that he has decision making capacity.) ICD10 Worksheet Patient Problems: Problems Problem Status Onset Cellulitis Acute MRSA (methicillin resistant Staphylococcus aureus) Acute 08/25/15 Pressure ulcer, buttock Acute Cellulitis Acute
[2016-11-04] MEDS: MIRTAZAPINE 30 MG ODTAB PO SCH (21:52)
[2016-11-04] MEDS: DOXAZOSIN MESYLATE 1 MG TAB TUBE SCH (21:52)
[2016-11-04] MEDS: ATORVASTATIN CALCIUM 10 MG TAB TUBE SCH (21:52)
[2016-11-04] MEDS: clonazePAM 0.5 MG TAB TUBE SCH (21:52)
[2016-11-04] MEDS: ACETAMINOPHEN 650 MG/20.3 ML UDCUP TUBE SCH (21:53)
[2016-11-04] MEDS: RANITIDINE HCL 150 MG/10 ML UDCUP TUBE SCH (22:18)
[2016-11-05] MEDS: TEARS/DEXTRAN 70/HYPROMELLOSE 15 ML OPHT.BTL EACHEYE SCH ×4 (06:08→22:03)
[2016-11-05] MEDS: LEVOTHYROXINE 25 MCG TAB TUBE SCH (06:08)
[2016-11-05] MEDS: VANCOMYCIN 750 MG in D5W 150 ML IV SCH (07:53)
[2016-11-05] MEDS: ENOXAPARIN 40 MG/0.4 ML SYR SC SCH (08:07)
[2016-11-05] MEDS: ASPIRIN 81 MG CHEWABLE TAB TUBE SCH (08:07)
[2016-11-05] MEDS: guaiFENesin 200 MG/10 ML UDCUP TUBE SCH ×2 (08:07→20:55)
[2016-11-05] MEDS: ASCORBIC ACID 500 MG TAB TUBE SCH ×2 (08:07→20:56)
[2016-11-05] MEDS: GLYCOPYRROLATE 1 MG TAB TUBE SCH ×2 (08:07→20:56)
[2016-11-05] MEDS: PANTOPRAZOLE SODIUM 40 MG in NS 100 ML IV SCH ×2 (09:28→20:50)
--- NOTE | 2016-11-05 10:48 | PCMIDPN ---
Assessment/Plan: Assessment/Plan: * Right buttock cellulitis/abscess due to MRSA s/p debridement: Wound healthy throughout without necrosis or purulence. Cellulitis has resolved. Plan 10 days of vancomycin in total (#8/10). Will decrease to 1 g IV q24 based on trough of 16 as lower trough acceptable for current process. Repeat BMP in am. Last dose of vancomycin will be 11/07/16. Not currently targeting Prevotella given s/p debridement and clinical improvement. 11/05/16 10:45 Subjective: Patient doesn't like his bed as limits mobility. Objective: Vital Signs Temp Pulse Resp BP Pulse Ox 36.6 C 80 16 141/92 H 88 L 11/05/16 07:31 11/05/16 07:31 11/05/16 07:31 11/05/16 07:31 11/05/16 07:31 Microbiology 10/28/16 15:45 Gram Stain - Final Buttock - Tissue Anaerobic Culture - Final MRSA 10/28/16 15:45 Gram Stain - Final Buttock - Swab Anaerobic Culture - Final MRSA Prevotella Dentic[place] Laboratory Results 11/02/16 05:40 11/02/16 05:40 11/04/16 11/05/16 11/06/16 05:59 05:59 05:59 Intake Total 1970 Balance 1970 Vancomycin #8 Laboratory Tests 11/05/16 06:45 Vancomycin Trough 16.0 - Physical Exam General Appearance: alert, no apparent distress EENT: poor dentition, No scleral icterus Respiratory: lungs clear, No respiratory distress Cardiac/Chest: regular rate, rhythm (right buttock wound with clean base; no necrosis or exposed bone; cellulitis previously demarcated has resolved with some early desquamation of skin superiorly) - Line/s LUE PICC Lines: No drainage, No erythema ICD10 Worksheet Patient Problems: Problems Problem Status Onset Cellulitis Acute Pressure ulcer, buttock Acute Cellulitis Acute MRSA (methicillin resistant Staphylococcus aureus) Acute 10/28/16
--- NOTE | 2016-11-05 11:28 | WOCRNPDOC ---
WOCRN Advanced Assessment Note - Skin Integrity Problem, Advanced Assess Right Ischial Tuberosity Pressure Injury Dressing Type: Black Vac Foam (6 pieces of black foam removed.), Wound Vac (w/ Veraflo using NS) Dressing Description: Intact Exudate Amount: Moderate Exudate Color: Red Exudate Characteristic(s): Bloody Integumentary Issue Intervention: Dressing Changed Nora Wound Tissue: Erythema (mild, decreased since previous assessments) Nora Wound Swelling: Mild Wound Bed Color: Red Wound Bed Constitution: Smooth Tissue, Undermining (Along superior margin 2.2cm ; along inferior margin 2cm) Site Odor: None Skin Integrity Problem Comment: Assessed site w/ Rosalva Seo and . Red, well-vascularized smooth tissue throughout, w/ no visible necrosis in wound bed. Tunneling previously noted in distal aspect of wound appears to be closing , and I was not able to appreciate much depth during this dressing change. Wound continues to have undermining almost circumferentially, w/ measurements decreased in depth since previous assessment. Per Dr. Seo, the tentative plan is to close this wound in the OR on Wednesday 11/08. Wound vac reapplied using 2 pieces of black foam and bridged over R hip. Veraflo instillation discontinued , as there is no necrosis noted. Vac set at 125mmHg. E TAILER Marry present and assisting.
--- NOTE | 2016-11-05 13:13 | HOSPPROG ---
Hospitalist Progress Note Assessment/Plan: 56-year-old male with a prior CVA and mobility issues presents with a right buttocks abscess which has been drained and currently has a wound VAC. Wound Vac removed and examined and healing well today. - Right buttocks abscess with necrotic Material with a wound VAC in place at this time. Extensive I and D in the OR. This is postop day 8. cultures have grown MRSA. he is afebrile and white count is declining. Currently on IV vancomycin and followed by ID. Plan per surgery is to close the wound on 11/08 - Dysphagia: This is a result of a remote CVA. He has a right tuan paresis dysarthria and swallowing difficulties. A feeding tube is in place. Patient refuses to use the feeding tube and continues to eat. Had episode yesterday of vomiting, no signs of aspiration. Has been NPO since vomiting. Will start PEG feeding today for next 2-3 days until post surgery on 11/08 for wound closure -diet: NPO now per above. Will start PEG tube feeding today - Diarrhea: This seems to have resolved C diff was negative. Will continue the Lomotil. - History of CVA: Is residual right-sided Tuan paresis and dysarthria. Dysphagia is also prominent and is difficult to understand though his speech can be understood if you follow for sufficiently long time. Following the episode of vomiting I have made the patient NPO and will begin tube feedings. - Chronic medical problems: Holliday's esophagus and will continue PPI medication, hypertension on outpatient medications and treated well, hypothyroidism and will continue levothyroxine. - DVT prophylaxis: Lovenox - code: Full Plan: Continue vancomycin through 11/07 for 10 day course wound closure 11/08 per Gabbi PEG tube feeding today disposition: Patient will return to [place]. No anticipated discharge date is known Subjective: Feeling better, no SOB, chest pain wheezing Objective: Vital Signs Temp Pulse Resp BP Pulse Ox 36.6 C 80 16 141/92 H 88 L 11/05/16 07:31 11/05/16 07:31 11/05/16 07:31 11/05/16 07:31 11/05/16 07:31 Microbiology 10/28/16 15:45 Gram Stain - Final Buttock - Tissue Anaerobic Culture - Final MRSA 10/28/16 15:45 Gram Stain - Final Buttock - Swab Anaerobic Culture - Final MRSA Prevotella Denticola Laboratory Results 11/02/16 05:40 11/02/16 05:40 11/04/16 11/05/16 11/06/16 05:59 05:59 05:59 Intake Total 1970 Balance 1970 PT 14.5 SEC (12.0-15.0) 10/28/16 10:06 INR 1.14 (0.83-1.16) 10/28/16 10:06 - Time Spent With Patient Time Spent with Patient: greater than 35 minutes Time Spent with Patient: Greater than 35 minutes spent on this patients care, greater than 50% of time spent counseling, educating, and coordinating care regarding the above mentioned plan. - Pending Discharge Pending Discharge Within 24 Hours: No Pending Discharge Within 48 Hours: No - Physical Exam Constitutional: no apparent distress, chronically ill appearing Eyes: PERRL Ears, Nose, Mouth, Throat: moist mucous membranes, other (hard to understand) Cardiovascular: regular rate and rhythym, no murmur, rub, or gallop Respiratory: no respiratory distress, no rales or rhonchi, clear to auscultation Gastrointestinal: normoactive bowel sounds, soft, non-tender abdomen, other ( PEG in place) Skin: warm Neurologic: other (right sided weakness) Psychiatric: interacting appropriately ICD10 Worksheet Patient Problems: Problems Problem Status Onset Cellulitis Acute MRSA (methicillin resistant Staphylococcus aureus) Acute 10/28/16 Pressure ulcer, buttock Acute Cellulitis Acute
[2016-11-05] MEDS: ATORVASTATIN CALCIUM 10 MG TAB TUBE SCH (20:55)
[2016-11-05] MEDS: ACETAMINOPHEN 650 MG/20.3 ML UDCUP TUBE SCH (20:55)
[2016-11-05] MEDS: RANITIDINE HCL 150 MG/10 ML UDCUP TUBE SCH (20:55)
[2016-11-05] MEDS: DOXAZOSIN MESYLATE 1 MG TAB TUBE SCH (20:55)
[2016-11-05] MEDS: clonazePAM 0.5 MG TAB TUBE SCH (20:56)
[2016-11-05] MEDS: MIRTAZAPINE 30 MG ODTAB PO SCH (20:56)
[2016-11-06] MEDS: TEARS/DEXTRAN 70/HYPROMELLOSE 15 ML OPHT.BTL EACHEYE SCH ×4 (04:59→22:20)
[2016-11-06] MEDS: LEVOTHYROXINE 25 MCG TAB TUBE SCH (04:59)
[2016-11-06 05:22] LABS: % IMMATURE GRANULYOCYTES 1.2 % (0.0-1.1); ABSOLUTE IMMATURE GRANULOCYTES 0.12 10^3/uL (0.00-0.10); ADD DIFF? NO; ADD MORPH? NO; ADD SCAN? NO; ATYPICAL LYMPHOCYTE FLAG 10 (0-99); FRAGMENT RBC FLAG 0 (0-99); HEMOGLOBIN 15.5 g/dL (13.7-17.5); LEFT SHIFT FLG 10 (0-99); LIPEMIA HEMOLYSIS FLAG 80 (0-99); MEAN CELL HEMOGLOBIN 32.3 pg (27.9-34.1); MEAN CELL HEMOGLOBIN CONCENTR. 33.7 g/dL (32.4-36.7); MEAN CELL VOLUME 95.8 fL (81.5-99.8); PLATELET CLUMPS FLAG 10 (0-99); PLATELET COUNT 368 10^3/uL (150-400); RED CELL DISTRIBUTION WIDTH 14.1 % (11.5-15.2)
[2016-11-06 05:35] LABS: ANION GAP 10 mEq/L (8-16); CALCIUM 8.9 mg/dL (8.5-10.4); CARBON DIOXIDE 27 mEq/l (22-31); CHLORIDE 96 mEq/L (97-110); CREATININE 0.9 mg/dL (0.7-1.3); GLOMERULAR FILTRATION RATE > 60; GLUCOSE 102 mg/dL (70-100); POTASSIUM 4.9 mEq/L (3.5-5.2); SODIUM 133 mEq/L (134-144)
[2016-11-06] MEDS ORDERED: MIDAZOLAM 2 MG/2 ML VIAL ONE (08:03)
[2016-11-06] MEDS ORDERED: PROPOFOL 200 MG/20 ML VIAL ONE (08:06)
[2016-11-06] MEDS ORDERED: fentaNYL 250 MCG/5 ML INJ ONE (08:06)
[2016-11-06] MEDS ORDERED: ROCURONIUM 50 MG/5 ML VIAL ONE (08:07)
[2016-11-06] MEDS ORDERED: METOCLOPRAMIDE 10 MG/2 ML VIAL ONE ×2 (08:08)
[2016-11-06] MEDS ORDERED: PHENYLEPHRINE HCL 100 MCG/ML SYR ONE ×4 (08:14→09:22)
--- NOTE | 2016-11-06 08:41 | HOSPPROG ---
Hospitalist Progress Note Assessment/Plan: 56-year-old male with a prior CVA and mobility issues presents with a right buttocks abscess which has been drained and currently has a wound VAC. Wound Vac removed and examined and healing. ASSESSMENT/PLAN: - Right buttocks abscess - - wound VAC in place. - s/p extensive I and D in the OR. - postop day 9. cultures have grown MRSA. - IV vancomycin and followed by ID - wound closed by surgery today - Chronic CVA w/ dysphagia, R hemiparesis - feeding tube is in place - getting tube feeds. - patient refused to use the feeding tube and vomited, now NPO. - Diarrhea, resolved -C diff was negative. Will continue the Lomotil. - Chronic medical problems: -Holliday's esophagus - will continue PPI medication -hypertension - on outpatient medications and treated well, -hypothyroidism - will continue levothyroxine. - DVT prophylaxis: Lovenox - code: Full Plan: Continue vancomycin through 11/07 for 10 day course wound closure 11/08 per Gabbi PEG tube feeds disposition: Patient will return to [place]. ____ SUBJECTIVE: Patient complained he is very thirsty and wants a cup of water for his mouth sponge. He says that he does not attempt to drink the water. He understands that water is going into his feeding tube along with tube feeds. OBJECTIVE: Physical Exam: General: The patient is a thin, middle-aged male who is alert and in no acute distress. HEENT: normocephalic, extraocular movements intact, conjunctivae clear. Mucous membranes moist. Neck: trachea midline, no visible masses. Abd: soft and nondistended. Bowel sounds present. Non tender throughout. Musculoskeletal: Right side of body appears to be weak. Neuro: cranial nerves II XII grossly intact. Intact gross motor and sensory function. Psych: Irritable mood and appropriate affect. Skin: No pallor. No petechiae. MEGHA drain in place, coming from posterior wound. Heme/lymph: No peripheral edema. Labs/Imaging/Other Tests: Personally reviewed/interpreted. Objective: Vital Signs Temp Pulse Resp BP Pulse Ox 36.7 C 91 14 136/82 H 89 L 11/06/16 00:00 11/06/16 00:00 11/06/16 00:00 11/06/16 00:00 11/06/16 00:00 Laboratory Results 11/06/16 04:14 11/06/16 04:14 11/05/16 11/06/16 11/07/16 05:59 05:59 05:59 Intake Total 1969 1330 Balance 1969 1330 PT 14.5 SEC (12.0-15.0) 10/28/16 10:06 INR 1.14 (0.83-1.16) 10/28/16 10:06 ICD10 Worksheet Patient Problems: Problems Problem Status Onset Cellulitis Acute Pressure ulcer, buttock Acute Cellulitis Acute MRSA (methicillin resistant Staphylococcus aureus) Acute 10/28/16
[2016-11-06] MEDS ORDERED: ONDANSETRON 4 MG/2 ML VIAL ONE (08:48)
[2016-11-06] MEDS ORDERED: KETOROLAC 30 MG/1 ML SDV ONE (09:08)
[2016-11-06] MEDS ORDERED: NEOSTIGMINE METHYLSULFATE 5 MG/5 ML SYR ONE (09:16)
[2016-11-06] MEDS ORDERED: GLYCOPYRROLATE 0.2 MG/1 ML VIAL ONE ×3 (09:16→09:39)
--- NOTE | 2016-11-06 09:46 | POSTOPPROG ---
Post Op Note Date of Operation: 11/06/16 Surgeon: Corky Aranda Anesthesia: GET(General Endotracheal) Pre-op Diagnosis: large wound right buttock Post-op Diagnosis: same Indication: same Procedure: complex closure 20 cm wond right buttock Findings: same Inf/Abcess present in the surg proc area at time of surgery?: No EBL: Minimal Drains: Samy Garcia
--- NOTE | 2016-11-06 10:24 | GOP ---
[f rep st] OPERATIVE REPORT DATE OF OPERATION: SURGEON: Corky Aranda MD PREOPERATIVE DIAGNOSIS: Open wound, right buttock. POSTOPERATIVE DIAGNOSIS: Open wound, right buttock. PROCEDURE PERFORMED: Complex closure of a right buttock wound 20 cm. FINDINGS: INDICATIONS: A 56-year-old male, status post drainage of a necrotizing soft tissue infection with M RSA. He has currently been treated with a wound VAC. The wound is granulating quite well. It is a ppropriate to do a primary closure. DESCRIPTION OF PROCEDURE: The patient was positioned prone on appropriate padding. The wound was s crubbed with Hibiclens and draped in the usual sterile fashion. The wound did not come together wit hout undue tension; therefore, the superior flap was undermined quite a bit by elevating it with ski n hooks and lifting the subcutaneous fat off the gluteus rubi muscle. This achieved some additio nal room and allowed a primary closure. A quarter-inch Hemovac drain was brought through a stab wou nd and laid in the depths of the wound. Then a layer of interrupted subcu 2-0 Vicryl was placed mariana nging the wound together to take tension off the closure. The skin was then closed with multiple in terrupted 3-0 Prolene in a simple fashion. After all the sutures were placed, the drain was secured to the skin with a stitch all hooked to this, and a sterile dressing applied. The patient tolerate d the procedure well. /[id number]/MODL
[2016-11-06] MEDS: PANTOPRAZOLE SODIUM 40 MG in NS 100 ML IV SCH ×2 (10:33→22:18)
[2016-11-06] MEDS: ASCORBIC ACID 500 MG TAB TUBE SCH ×2 (10:33→22:06)
[2016-11-06] MEDS: guaiFENesin 200 MG/10 ML UDCUP TUBE SCH ×2 (10:34→22:04)
[2016-11-06] MEDS: GLYCOPYRROLATE 1 MG TAB TUBE SCH ×2 (11:27→22:06)
[2016-11-06] MEDS: VANCOMYCIN HCL/NORMAL SALINE 250 ML IV SCH (11:27)
[2016-11-06] MEDS: ASPIRIN 81 MG CHEWABLE TAB TUBE SCH (14:28)
[2016-11-06] MEDS ORDERED: LORazepam 2 MG/ML INJ IVP PRN (17:58)
[2016-11-06] MEDS: ACETAMINOPHEN 650 MG/20.3 ML UDCUP TUBE SCH (22:02)
[2016-11-06] MEDS: RANITIDINE HCL 150 MG/10 ML UDCUP TUBE SCH (22:05)
[2016-11-06] MEDS: DOXAZOSIN MESYLATE 1 MG TAB TUBE SCH (22:06)
[2016-11-06] MEDS: ATORVASTATIN CALCIUM 10 MG TAB TUBE SCH (22:06)
[2016-11-06] MEDS: clonazePAM 0.5 MG TAB TUBE SCH (22:06)
[2016-11-06] MEDS: MIRTAZAPINE 30 MG ODTAB PO SCH (22:24)
[2016-11-07] MEDS: LEVOTHYROXINE 25 MCG TAB TUBE SCH (05:08)
[2016-11-07] MEDS: TEARS/DEXTRAN 70/HYPROMELLOSE 15 ML OPHT.BTL EACHEYE SCH ×3 (05:08→15:18)
--- NOTE | 2016-11-07 07:14 | SOAPPROG ---
SOAP Progress Note Assessment/Plan: Assessment:no overnight issues. Afebrile. wound dressing dry. no surrounding erythema. MEGHA thin sang. doing well. drain care. no new reccs. Plan: 11/07/16 07:14 Objective: Vital Signs Temp Pulse Resp BP Pulse Ox 36.7 C 93 14 104/59 L 83 L 11/07/16 04:00 11/07/16 04:00 11/07/16 04:00 11/07/16 04:00 11/07/16 04:00 Laboratory Results 11/06/16 04:14 11/06/16 04:14 11/06/16 11/07/16 11/08/16 05:59 05:59 05:59 Intake Total 1330 3929 Output Total 87 Balance 1330 3842 PT 14.5 SEC (12.0-15.0) 10/28/16 10:06 INR 1.14 (0.83-1.16) 10/28/16 10:06 ICD10 Worksheet Patient Problems: Problems Problem Status Onset Cellulitis Acute Pressure ulcer, buttock Acute Cellulitis Acute MRSA (methicillin resistant Staphylococcus aureus) Acute 10/28/16
[2016-11-07] MEDS: ASCORBIC ACID 500 MG TAB TUBE SCH ×2 (08:29→23:22)
[2016-11-07] MEDS: ASPIRIN 81 MG CHEWABLE TAB TUBE SCH (08:29)
[2016-11-07] MEDS: guaiFENesin 200 MG/10 ML UDCUP TUBE SCH ×2 (08:30→23:21)
[2016-11-07] MEDS: PANTOPRAZOLE SODIUM 40 MG in NS 100 ML IV SCH (08:30)
[2016-11-07] MEDS: GLYCOPYRROLATE 1 MG TAB TUBE SCH ×2 (08:30→23:23)
[2016-11-07] MEDS ORDERED: ENOXAPARIN 40 MG/0.4 ML SYR SC ONE (08:48)
[2016-11-07] MEDS: ENOXAPARIN 40 MG/0.4 ML SYR SC SCH (08:53)
[2016-11-07] MEDS: VANCOMYCIN HCL/NORMAL SALINE 250 ML IV SCH (10:09)
--- NOTE | 2016-11-07 19:51 | HOSPPROG ---
Hospitalist Progress Note Assessment/Plan: 56-year-old male with a prior CVA and mobility issues presents with a right buttocks abscess which has been drained and currently has a wound VAC. Wound Vac removed and examined and healing. ASSESSMENT/PLAN: - Right buttocks abscess - -s/p wound closure - POD #1 - MEGHA drain in place, draining blood fluid. - s/p extensive I and D in the OR. postop day #10. cultures have grown MRSA. - IV vancomycin and followed by ID - Chronic CVA w/ dysphagia, R hemiparesis - feeding tube is in place - getting tube feeds. - patient refused to use the feeding tube and vomited, now NPO. - Diarrhea, resolved -C diff was negative. Will continue the Lomotil. - Chronic medical problems: -Holliday's esophagus - will continue PPI medication -hypertension - on outpatient medications and treated well, -hypothyroidism - will continue levothyroxine. - DVT prophylaxis: Lovenox - code: Full Plan: Completing vancomycin today 4/2 for 10 day course wound closure 4/2 per Gabbi PEG tube feeds disposition: Patient will return to [place]. ____ SUBJECTIVE: Patient denied complaints today. Per RN, MEGHA drain has been draining today. OBJECTIVE: Physical Exam: General: The patient is a thin, middle-aged male who is alert and in no acute distress. HEENT: normocephalic, extraocular movements intact, conjunctivae clear. Mucous membranes moist. Neck: trachea midline, no visible masses. Abd: soft and nondistended. Bowel sounds present. Non tender throughout. Musculoskeletal: Right side of body appears to be weak. R buttock wound - oozed blood on dressing. EMGHA drain w/ bloody fluid. Neuro: cranial nerves II XII grossly intact. Intact gross motor and sensory function. Psych: Irritable mood and appropriate affect. Skin: No pallor. No petechiae. Heme/lymph: No peripheral edema. Labs/Imaging/Other Tests: Personally reviewed/interpreted. Objective: Vital Signs Temp Pulse Resp BP Pulse Ox 36.5 C 82 20 112/76 91 L 11/07/16 19:26 11/07/16 19:26 11/07/16 19:26 11/07/16 19:26 11/07/16 19:26 Laboratory Results 11/06/16 04:14 11/06/16 04:14 11/06/16 11/07/16 11/08/16 05:59 05:59 05:59 Intake Total 1330 3929 1420 Output Total 87 80 Balance 1330 3842 1340 PT 14.5 SEC (12.0-15.0) 10/28/16 10:06 INR 1.14 (0.83-1.16) 10/28/16 10:06 ICD10 Worksheet Patient Problems: Problems Problem Status Onset Cellulitis Acute Pressure ulcer, buttock Acute Cellulitis Acute MRSA (methicillin resistant Staphylococcus aureus) Acute 10/28/16
[2016-11-07] MEDS: ACETAMINOPHEN 650 MG/20.3 ML UDCUP TUBE SCH (23:21)
[2016-11-07] MEDS: RANITIDINE HCL 150 MG/10 ML UDCUP TUBE SCH (23:21)
[2016-11-07] MEDS: clonazePAM 0.5 MG TAB TUBE SCH (23:22)
[2016-11-07] MEDS: ATORVASTATIN CALCIUM 10 MG TAB TUBE SCH (23:22)
[2016-11-07] MEDS: DOXAZOSIN MESYLATE 1 MG TAB TUBE SCH (23:22)
[2016-11-07] MEDS: MIRTAZAPINE 30 MG ODTAB PO SCH (23:23)
[2016-11-08] MEDS: TEARS/DEXTRAN 70/HYPROMELLOSE 15 ML OPHT.BTL EACHEYE SCH ×5 (00:13→21:27)
[2016-11-08] MEDS: PANTOPRAZOLE SODIUM 40 MG in NS 100 ML IV SCH ×3 (00:13→21:40)
[2016-11-08] MEDS: LEVOTHYROXINE 25 MCG TAB TUBE SCH (06:44)
[2016-11-08] MEDS: guaiFENesin 200 MG/10 ML UDCUP TUBE SCH ×2 (08:56→21:26)
[2016-11-08] MEDS: ENOXAPARIN 40 MG/0.4 ML SYR SC SCH (08:57)
[2016-11-08] MEDS: GLYCOPYRROLATE 1 MG TAB TUBE SCH ×2 (08:57→21:26)
[2016-11-08] MEDS: ASPIRIN 81 MG CHEWABLE TAB TUBE SCH (08:58)
[2016-11-08] MEDS: ASCORBIC ACID 500 MG TAB TUBE SCH ×2 (08:58→21:26)
--- NOTE | 2016-11-08 10:47 | HOSPPROG ---
Hospitalist Progress Note Assessment/Plan: * Right buttocks abscess - -s/p wound closure - POD #2 - MEGHA drain in place, draining blood fluid. - s/p extensive I and D in the OR. cultures have grown MRSA. - IV vancomycin and followed by ID - Chronic CVA w/ dysphagia, R hemiparesis - feeding tube is in place - getting tube feeds. - can eat in addition to tube feeds. - Diarrhea, resolved -C diff was negative. Will continue the Lomotil. *Holliday's esophagus - will continue PPI medication *hypertension - on outpatient medications and treated well, *hypothyroidism - will continue levothyroxine. *DVT prophylaxis: Lovenox * full code disposition: Patient will return to [place]. Subjective: Upset that he can' t take a shower or sit on chair. Objective: Vital Signs Temp Pulse Resp BP Pulse Ox 36.7 C 86 18 112/78 91 L 11/08/16 08:00 11/08/16 08:00 11/08/16 08:00 11/08/16 08:00 11/08/16 08:00 Laboratory Results 11/06/16 04:14 11/06/16 04:14 11/07/16 11/08/16 11/09/16 05:59 05:59 05:59 Intake Total 3929 2504 Output Total 87 450 Balance 3842 2054 PT 14.5 SEC (12.0-15.0) 10/28/16 10:06 INR 1.14 (0.83-1.16) 10/28/16 10:06 - Physical Exam Constitutional: no apparent distress, appears nourished, not in pain Eyes: anicteric sclera, EOMI Ears, Nose, Mouth, Throat: moist mucous membranes, hearing normal, ears appear normal Cardiovascular: regular rate and rhythym Respiratory: no respiratory distress, no rales or rhonchi, clear to auscultation Skin: warm Musculoskeletal: other ( MEGHA with serosanguineous drainage) Neurologic: AAOx3, weakness ( right-sided weakness), facial droop, other ( dysarthria) Psychiatric: not anxious, not encephalopathic, thought process linear, agitated ( a little bit) ICD10 Worksheet Patient Problems: Problems Problem Status Onset Cellulitis Acute Pressure ulcer, buttock Acute Cellulitis Acute MRSA (methicillin resistant Staphylococcus aureus) Acute 10/28/16
--- NOTE | 2016-11-08 18:05 | PCMIDPN ---
Assessment/Plan: Assessment: Right buttock abscess. Extensive. Secondary to MRSA. Since closed surgically and stable at present. Vancomycin course completed yesterday and now no longer needing further treatment for his infection. He is adamant that he wants to leave the hospital. Plan: 1. Discharge home once surgery and hospital medicine are confident in recovery. 2. No further antibiotics. Subjective: Patient is resting in his bed. Agitated about still being in the hospital. No other complaints. Objective: no abx (last vanco dose 11/07) Vital Signs Temp Pulse Resp BP Pulse Ox 36.7 C 79 18 126/68 H 93 11/08/16 15:49 11/08/16 15:49 11/08/16 15:49 11/08/16 15:49 11/08/16 15:49 Laboratory Results 11/06/16 04:14 11/06/16 04:14 11/07/16 11/08/16 11/09/16 05:59 05:59 05:59 Intake Total 3929 2504 470 Output Total 87 450 20 Balance 3842 2054 450 - Physical Exam General Appearance: WD/WN, alert, no apparent distress, non-toxic Respiratory: lungs clear, normal breath sounds, No respiratory distress Cardiac/Chest: regular rate, rhythm, No tachycardia Neuro/Psych: alert, normal mood/affect, oriented x 3 ICD10 Worksheet Patient Problems: Problems Problem Status Onset Cellulitis Acute Pressure ulcer, buttock Acute Cellulitis Acute MRSA (methicillin resistant Staphylococcus aureus) Acute 10/28/16
--- NOTE | 2016-11-08 18:40 | SOAPPROG ---
SOAP Progress Note Assessment/Plan: Assessment: Plan: Subjective: vss,af sutrue line intact, minimal drainage out michael continue presednt care Objective: Vital Signs Temp Pulse Resp BP Pulse Ox 36.7 C 79 18 126/68 H 93 11/08/16 15:49 11/08/16 15:49 11/08/16 15:49 11/08/16 15:49 11/08/16 15:49 Laboratory Results 11/06/16 04:14 11/06/16 04:14 11/07/16 11/08/16 11/09/16 05:59 05:59 05:59 Intake Total 3929 2504 470 Output Total 87 450 20 Balance 3842 2054 450 PT 14.5 SEC (12.0-15.0) 10/28/16 10:06 INR 1.14 (0.83-1.16) 10/28/16 10:06 ICD10 Worksheet Patient Problems: Problems Problem Status Onset Cellulitis Acute Pressure ulcer, buttock Acute Cellulitis Acute MRSA (methicillin resistant Staphylococcus aureus) Acute 10/28/16
[2016-11-08] MEDS: MIRTAZAPINE 30 MG ODTAB PO SCH (21:26)
[2016-11-08] MEDS: clonazePAM 0.5 MG TAB TUBE SCH (21:26)
[2016-11-08] MEDS: ATORVASTATIN CALCIUM 10 MG TAB TUBE SCH (21:26)
[2016-11-08] MEDS: DOXAZOSIN MESYLATE 1 MG TAB TUBE SCH (21:26)
[2016-11-08] MEDS: RANITIDINE HCL 150 MG/10 ML UDCUP TUBE SCH (21:27)
[2016-11-08] MEDS: ACETAMINOPHEN 650 MG/20.3 ML UDCUP TUBE SCH (21:27)
[2016-11-09] MEDS: LEVOTHYROXINE 25 MCG TAB TUBE SCH (06:30)
[2016-11-09] MEDS: TEARS/DEXTRAN 70/HYPROMELLOSE 15 ML OPHT.BTL EACHEYE SCH ×3 (06:30→22:12)
--- NOTE | 2016-11-09 07:05 | SOAPPROG ---
SOAP Progress Note Assessment/Plan: Assessment: Plan: Subjective: VSS,AF WILL DC MEGHA. WOUND LOOKS GOOD SO FAR. Objective: Vital Signs Temp Pulse Resp BP Pulse Ox 36.8 C 75 16 110/78 91 L 11/08/16 23:46 11/08/16 23:46 11/08/16 23:46 11/08/16 23:46 11/08/16 23:46 Laboratory Results 11/06/16 04:14 11/06/16 04:14 11/08/16 11/09/16 11/10/16 05:59 05:59 05:59 Intake Total 2504 470 Output Total 450 20 Balance 2054 450 PT 14.5 SEC (12.0-15.0) 10/28/16 10:06 INR 1.14 (0.83-1.16) 10/28/16 10:06 ICD10 Worksheet Patient Problems: Problems Problem Status Onset Cellulitis Acute Pressure ulcer, buttock Acute Cellulitis Acute MRSA (methicillin resistant Staphylococcus aureus) Acute 10/28/16
[2016-11-09] MEDS: PANTOPRAZOLE SODIUM 40 MG in NS 100 ML IV SCH (08:28)
[2016-11-09] MEDS: ENOXAPARIN 40 MG/0.4 ML SYR SC SCH (08:29)
[2016-11-09] MEDS: guaiFENesin 200 MG/10 ML UDCUP TUBE SCH ×2 (08:30→22:11)
[2016-11-09] MEDS: ASCORBIC ACID 500 MG TAB TUBE SCH ×2 (08:30→22:12)
[2016-11-09] MEDS: ASPIRIN 81 MG CHEWABLE TAB TUBE SCH (08:30)
[2016-11-09] MEDS: GLYCOPYRROLATE 1 MG TAB TUBE SCH ×2 (08:30→22:12)
--- NOTE | 2016-11-09 15:50 | HOSPPROG ---
Hospitalist Progress Note Assessment/Plan: * Right buttocks abscess - -s/p wound closure - MEGHA drain to be removed today - s/p extensive I and D in the OR. cultures have grown MRSA. - completed antibiotics - probable discharge tomorrow - Chronic CVA w/ dysphagia, R hemiparesis - feeding tube is in place - getting tube feeds. - can eat in addition to tube feeds. - Diarrhea, resolved -C diff was negative. Will continue the Lomotil. *Holliday's esophagus - will continue PPI medication *hypertension - on outpatient medications and treated well, *hypothyroidism - will continue levothyroxine. *DVT prophylaxis: Lovenox * full code disposition: Patient will return to [place]. Subjective: No new complaints. Wants to go home Objective: Vital Signs Temp Pulse Resp BP Pulse Ox 37.4 C 101 H 16 104/70 90 L 11/09/16 14:59 11/09/16 14:59 11/09/16 14:59 11/09/16 14:59 11/09/16 14:59 Microbiology 10/28/16 15:45 Mycobacterial Smear (CHRISTI) - Final Buttock - Tissue Laboratory Results 11/06/16 04:14 11/06/16 04:14 11/08/16 11/09/16 11/10/16 05:59 05:59 05:59 Intake Total 2504 470 240 Output Total 450 20 Balance 2054 450 240 PT 14.5 SEC (12.0-15.0) 10/28/16 10:06 INR 1.14 (0.83-1.16) 10/28/16 10:06 - Physical Exam Constitutional: no apparent distress, appears nourished, not in pain Eyes: anicteric sclera, EOMI Ears, Nose, Mouth, Throat: moist mucous membranes, hearing normal Cardiovascular: regular rate and rhythym, no murmur, rub, or gallop Respiratory: no respiratory distress Gastrointestinal: normoactive bowel sounds, soft, non-tender abdomen, no palpable masses Skin: warm Musculoskeletal: other ( MEGHA drain in place) Neurologic: AAOx3 Psychiatric: interacting appropriately, not anxious, not encephalopathic, thought process linear ICD10 Worksheet Patient Problems: Problems Problem Status Onset Cellulitis Acute Pressure ulcer, buttock Acute Cellulitis Acute MRSA (methicillin resistant Staphylococcus aureus) Acute 10/28/16
[2016-11-09] MEDS: RANITIDINE HCL 150 MG/10 ML UDCUP TUBE SCH (22:10)
[2016-11-09] MEDS: DOXAZOSIN MESYLATE 1 MG TAB TUBE SCH (22:11)
[2016-11-09] MEDS: ACETAMINOPHEN 650 MG/20.3 ML UDCUP TUBE SCH (22:11)
[2016-11-09] MEDS: MIRTAZAPINE 30 MG ODTAB PO SCH (22:11)
[2016-11-09] MEDS: clonazePAM 0.5 MG TAB TUBE SCH (22:12)
[2016-11-09] MEDS: ATORVASTATIN CALCIUM 10 MG TAB TUBE SCH (22:12)
[2016-11-09] MEDS: PANTOPRAZOLE SODIUM 40 MG TAB PO SCH (22:12)
[2016-11-09 22:16] VITALS: O2SAT 92
[2016-11-10] MEDS: TEARS/DEXTRAN 70/HYPROMELLOSE 15 ML OPHT.BTL EACHEYE SCH ×2 (05:07→14:56)
[2016-11-10] MEDS: LEVOTHYROXINE 25 MCG TAB TUBE SCH (05:07)
[2016-11-10 08:11] VITALS: BP 107/67; PULSE 79; RESP 14; TEMP 98.6
[2016-11-10] MEDS: guaiFENesin 200 MG/10 ML UDCUP TUBE SCH (10:04)
[2016-11-10] MEDS: ENOXAPARIN 40 MG/0.4 ML SYR SC SCH (10:04)
[2016-11-10] MEDS: ASPIRIN 81 MG CHEWABLE TAB TUBE SCH (10:05)
[2016-11-10] MEDS: GLYCOPYRROLATE 1 MG TAB TUBE SCH (10:05)
[2016-11-10] MEDS: ASCORBIC ACID 500 MG TAB TUBE SCH (10:05)
[2016-11-10] MEDS: PANTOPRAZOLE SODIUM 40 MG TAB PO SCH (10:05)
--- NOTE | 2016-11-10 13:15 | SOAPPROG ---
SOAP Progress Note Assessment/Plan: Assessment:no overnight issues. wants to go home. Afebrile. wound clean. no erythema. no tenderness. no swelling. min serous drainage on gauze. doing well. ok to dc from surgical standpoint. f/u dr. brizuela next week. wound care instructions placed on DC page. ok to dc PICC. Plan: 11/07/16 07:14 11/10/16 13:14 Objective: Vital Signs Temp Pulse Resp BP Pulse Ox 37.0 C 79 14 107/67 92 11/10/16 08:00 11/10/16 08:00 11/10/16 08:00 11/10/16 08:00 11/10/16 08:00 Microbiology 10/28/16 15:45 Mycobacterial Smear (CHRISTI) - Final Buttock - Tissue Laboratory Results 11/06/16 04:14 11/06/16 04:14 11/09/16 11/10/16 11/11/16 05:59 05:59 05:59 Intake Total 357 040 4541 Output Total 20 Balance 707 191 5677 PT 14.5 SEC (12.0-15.0) 10/28/16 10:06 INR 1.14 (0.83-1.16) 10/28/16 10:06 ICD10 Worksheet Patient Problems: Problems Problem Status Onset Cellulitis Acute Pressure ulcer, buttock Acute Cellulitis Acute MRSA (methicillin resistant Staphylococcus aureus) Acute 10/28/16
--- NOTE | 2016-11-10 13:40 | PDIAF ---
- Diagnosis Diagnosis: buttock cellulitis Code Status: Full Code - Medication Management Discharge Medications: Medications to Continue on Transfer Acetaminophen [Tylenol 650/20.3ML Oral Liq (*)] 1,000 mg TUBE HS 10/28/16 [Last Taken 10/27/16] Ascorbic Acid [Vitamin C 500 mg (*)] 500 mg TUBE BID 10/28/16 [Last Taken 08:00] Doxazosin Mesylate [Cardura 1 MG (*)] 1 mg TUBE HS 10/28/16 [Last Taken 10/27/16 ] Glycopyrrolate 1 mg TUBE BID 10/28/16 [Last Taken 10/28/16 08:00] Herbals/Supplements -Info Only 1 ea PO DAILY 10/28/16 [Last Taken Unknown] Levothyroxine [Synthroid 25 mcg (*)] 25 mcg TUBE DAILY06 10/28/16 [Last Taken ] Magnesium Hydroxide [Milk of Magnesia] 10 ml TUBE Q8 PRN 10/28/16 [Last Taken Unknown] Mirtazapine [Remeron Soltab 30 mg (*)] 30 mg TUBE HS 10/28/16 [Last Taken ] Omeprazole Magnesium [Prilosec Otc] 40 mg TUBE BID 10/28/16 [Last Taken 08:00] Ranitidine HCl [Zantac] 300 mg TUBE HS 10/28/16 [Last Taken 10/27/16] Simvastatin [Zocor] 20 mg TUBE HS 10/28/16 [Last Taken 10/27/16] Tears/Dextran 70/Hypromellose [Natural Balance Tears (*)] 2 drop EACHEYE QID [Last Taken 10/28/16 08:00] clonazePAM [Clonazepam] 0.25 mg TUBE HS 10/28/16 [Last Taken 10/27/16 21:00] guaiFENesin [Liquituss GG] 400 mg TUBE BID 10/28/16 [Last Taken 10/28/16 08:00] guaiFENesin/DEXTROMETHORPHAN [Robitussin Dm Oral Liquid (*)] 10 ml TUBE Q4 PRN 10/28/16 [Last Taken Unknown] Discharge Medications: Refer to the Discharge Home Medication list for PRN reason. - Orders Diet Texture: Regular Texture Diet, [place] Thick Liquids, Water Protocol, Non Oral Meds Tube feeding: resume previous - Follow Up Care Current Providers and Referrals: Corky Aranda MD [Medical Doctor] - follow up in 1 week
--- NOTE | 2016-11-10 15:02 | GDS ---
[f rep st] DISCHARGE SUMMARY DISCHARGE DIAGNOSES: 1. Right buttock abscess with methicillin-resistant Staphylococcus aureus status post antibiotics, I and D, wound VAC, and wound closure. 2. History of cerebrovascular accident with right hemiparesis. 3. Holliday esophagus. 4. Hypertension. 5. Hypothyroidism. HISTORY: This is a 56-year-old male with a history of CVA and right hemiparesis living in [facility] who presented with right buttock wound. He had been treated with oral antibiotics prior. HOSPITAL COURSE: The patient was admitted and Surgery was consulted. He underwent I and D. Wound VAC was placed at that time. Infectious Disease was also. Patient was treated with a course of van comycin. Eventually the wound was closed. He has been doing well off antibiotics and will go back to [facility] facility. DISCHARGE MEDICATIONS: He is to resume all his previous home medicines. Greater than 30 minutes wa s spent on discharge. /[id number]/MODL
== END 2016-11-10 15:25 | DRG 570 ==
LOC: EDUNIT# → UNDOADMOB 10:58 → F3E 11:43 → OBSVTOIN 13:01 → F3E 10-30 17:26
PROVIDERS: ADMIT Internal Medicine; ATTEND Internal Medicine
PROC: 0JB90ZZ Excision of Buttock Subcutaneous Tissue and Fascia, Open Approach (ICD-10-PCS; principal; 2016-10-28 14:45)
PROC: 02HV33Z Insertion of Infusion Device into Superior Vena Cava, Percutaneous Approach (ICD-10-PCS; 2016-10-31)
PROC: 0D9P70Z Drainage of Rectum with Drainage Device, Via Natural or Artificial Opening (ICD-10-PCS; 2016-11-02)
PROC: 0JQ90ZZ Repair Buttock Subcutaneous Tissue and Fascia, Open Approach (ICD-10-PCS; 2016-11-06)
DX: L02.31 Cutaneous abscess of buttock (principal); B95.62 Methicillin resistant Staphylococcus aureus infection as the cause of diseases classified elsewhere; L89.214 Pressure ulcer of right hip, stage 4; K22.70 Barrett's esophagus without dysplasia; K21.9 Gastro-esophageal reflux disease without esophagitis; I10 Essential (primary) hypertension; E03.9 Hypothyroidism, unspecified; F17.210 Nicotine dependence, cigarettes, uncomplicated; I69.351 Hemiplegia and hemiparesis following cerebral infarction affecting right dominant side; I69.391 Dysphagia following cerebral infarction; Z93.1 Gastrostomy status; Z99.3 Dependence on wheelchair
CPT/HCPCS: 92610-GN; 96365; 97163-GP; 97530-GP; C1751; J0171; J0696; J1650; J1885; J2250; J2370; J2405; J2704; J2710; J2765; J3010; J3370

== ENCOUNTER 2016-12-17 11:07 | Day surgery (SDC) | payer MEDICAID ==
[2016-12-17] MEDS ORDERED: BUPIVACAINE 0.5% 30 ML SDV ONE (12:10)
[2016-12-17] MEDS ORDERED: VANCOMYCIN HCL/NORMAL SALINE 250 ML IV ONE (12:30)
[2016-12-17] MEDS ORDERED: PROPOFOL 200 MG/20 ML VIAL ONE (13:16)
[2016-12-17] MEDS ORDERED: fentaNYL 100 MCG/2 ML INJ ONE (13:16)
[2016-12-17] MEDS ORDERED: ONDANSETRON 4 MG/2 ML VIAL ONE (13:18)
[2016-12-17] MEDS ORDERED: SUGAMMADEX SODIUM 200 MG/2 ML VIAL IVP ONE (13:18)
[2016-12-17] MEDS ORDERED: ROCURONIUM 50 MG/5 ML VIAL ONE (13:18)
[2016-12-17] MEDS ORDERED: LIDOCAINE 2% 5 ML SDV ONE (13:18)
--- NOTE | 2016-12-17 14:29 | GOP ---
[f rep st] OPERATIVE REPORT DATE OF OPERATION: 12/17/2016 SURGEON: Lizette Brown MD TRACER BULLET CHARGING MACHINE OPERATOR: STEPHANIE Burt ANESTHESIA: General. ANESTHESIOLOGIST: Ash Balbuena MD PREOPERATIVE DIAGNOSIS: History of cellulitis with large soft tissue defect on his right buttock. POSTOPERATIVE DIAGNOSIS: History of cellulitis with large soft tissue defect on his right buttock. PROCEDURE PERFORMED: Debridement skin, soft tissue, 6 x 15.5 x 1 cm with placement of wound VAC. FINDINGS: Large wound with healthy granulation tissue and some undermining. SPECIMENS: None. ESTIMATED BLOOD LOSS: 10 cc. INDICATIONS: The patient is a 56-year-old man who had a stroke and then developed cellulitis of his right buttock. This was debrided, the wound broke down. He has been presenting to our office, and I think he would benefit from wound VAC placement. He also had undermining. DESCRIPTION OF PROCEDURE: The patient was brought into the operating room, placed supine on the tab le, and general anesthesia was administered. He was then placed in the prone position. The wound w as examined and all tissue where it was undermining was excised with electrocautery. Hemostasis was achieved. The wound was debrided with a curette. Hemostasis was achieved. A wound VAC was placed . The wound measures 6 x 15.5 x 1 cm. He was placed back into the supine position, awakened in the operating room, extubated, and transferred to PACU in stable condition. /[id number]/MODL
[2016-12-17 15:15] VITALS: BP 105/65; RESP 21; O2SAT 89
--- NOTE | 2016-12-22 08:39 | PQFORM ---
PHYSICIAN QUERY FORM Needs Your Response This query form is being sent to you to assure this patient record is coded properly. Please respond to the question below: HEARSE DRIVER QUESTION: Dr Brown Please document whether this patients debridement was yes excisional ___ non excisional ___ Other ( ) Thank You Esha ESPINO INSTRUCTIONS FOR RESPONSE: Answer question by clicking on the "Edit Document" button. Move cursor to area below the stars. When complete, hit "Save." Click on the "Sign" button, then click "Sign" again. Type in your PIN and hit "Enter." MTDD
== END 2016-12-17 15:15 | disposition home or self-care (01) ==
LOC: FSGY 11:07
PROVIDERS: ATTEND Surgery
PROC: 0JB90ZZ Excision of Buttock Subcutaneous Tissue and Fascia, Open Approach (ICD-10-PCS; principal; 2016-12-17 12:45)
DX: T81.89XA Other complications of procedures, not elsewhere classified, initial encounter (principal); L98.411 Non-pressure chronic ulcer of buttock limited to breakdown of skin; L92.9 Granulomatous disorder of the skin and subcutaneous tissue, unspecified; I69.351 Hemiplegia and hemiparesis following cerebral infarction affecting right dominant side
CPT/HCPCS: J2405; J2704; J3010; J3370

== ENCOUNTER 2017-01-27 11:52 | Inpatient (IN) | payer MEDICAID ==
[2017-01-27 12:49] LABS: % IMMATURE GRANULYOCYTES 0.3 % (0.0-1.1); ABSOLUTE IMMATURE GRANULOCYTES 0.05 10^3/uL (0.00-0.10); ADD DIFF? NO; ADD MORPH? NO; ADD SCAN? NO; ATYPICAL LYMPHOCYTE FLAG 10 (0-99); FRAGMENT RBC FLAG 0 (0-99); HEMOGLOBIN 11.6 g/dL (13.7-17.5); LEFT SHIFT FLG 0 (0-99); LIPEMIA HEMOLYSIS FLAG 80 (0-99); MEAN CELL HEMOGLOBIN 28.9 pg (27.9-34.1); MEAN CELL HEMOGLOBIN CONCENTR. 32.2 g/dL (32.4-36.7); MEAN CELL VOLUME 89.8 fL (81.5-99.8); MEAN PLATELET VOLUME 9.9 fL (8.7-11.7); PLATELET CLUMPS FLAG 0 (0-99); PLATELET COUNT 406 10^3/uL (150-400); RED BLOOD CELL COUNT 4.01 10^6/uL (4.40-6.38); RED CELL DISTRIBUTION WIDTH 14.9 % (11.5-15.2)
[2017-01-27 12:52] LABS: ANION GAP 9 mEq/L (8-16); CALCIUM 8.8 mg/dL (8.5-10.4); CARBON DIOXIDE 34 mEq/l (22-31); CHLORIDE 89 mEq/L (97-110); CREATININE 0.9 mg/dL (0.7-1.3); GLOMERULAR FILTRATION RATE > 60; GLUCOSE 106 mg/dL (70-100); POTASSIUM 4.3 mEq/L (3.5-5.2); SODIUM 132 mEq/L (134-144)
--- NOTE | 2017-01-27 14:29 | EDPHY ---
H & P Stated Complaint: decub ulcers R buttocks Time Seen by Provider: 01/27/17 14:13 HPI/ROS: CHIEF COMPLAINT: Possible pneumonia HISTORY OF PRESENT ILLNESS: The patient is a 56 y/o male arriving via EMS from [place] at the recommendation of Dr. Brown for evaluation of pneumonia. He has a history that includes CVA, dementia, hemiplegia, dysphagia, and ongoing decubitus ulcer. Dr. Brown discussed his case with the ED physician and recommended no further work up of his decubitus ulcer as she is managing that issue closely. Wound VAC in place. Dr. Brown spoke with the patient's nurse at [facility] who informed her that the patient has been choking on his food more frequently and his nurse is concerned about aspiration pneumonia. WBC elevated recently. The patient reports he is seeing Dr. Brown tomorrow and is reluctant to stay in the hospital. He is otherwise minimally contributive during assessment. REVIEW OF SYSTEMS: A 10 point review of systems was performed and is negative with the exception of the elements mentioned in the history of present illness. - Personal History Current Tetanus/Diphtheria Vaccine: Unsure Current Tetanus Diphtheria and Acellular Pertussis (TDAP): Unsure - Medical/Surgical History PMH: PMH includes: 1. CVA 2. History of esophageal stricture, s/p dilatation 3. Holliday's esophagus 4. Right-sided hemiplegia. 5. Hypothyroidism 6. Dementia 7. Hypertension 8. Dysphagia 9. GERD 10. BPH 11. Depression 12. G-tube placement 13. Right buttock abscess with MRSA post antibiotics and wound VAC Prior medial records reviewed including admission 10/28/16 for cellulitis. Hx Asthma: No Hx Chronic Respiratory Disease: No Hx Diabetes: No Hx Cardiac Disease: No Hx Renal Disease: No Hx Cirrhosis: No Hx Alcoholism: No Hx HIV/AIDS: No Hx Splenectomy or Spleen Trauma: No Other PMH: CVA-R SIDE WEAKNESS. HYPOTHYROID, DEMENTIA, HTN, dysphagia, GERD, weaknessGAD, prostate hypertrophy, depression, rt sided hemiplegia, difficulty walking - Social History Smoking Status: Heavy smoker Additional Social History: Smoker. Lives at [facility]. Dr. Brown follows him for wound care. - Physical Exam Exam: General Appearance: Alert, no acute distress. SpO2 82% on arrival (room air). Blow-by oxygen in place at the time of my exam with pulse ox readings ranging from 85% to 91%. Eyes: Pupils equal and round, no conjunctival injection, no discharge. ENT, Mouth: Mucous membranes are dry, poor dentition, no oropharyngeal erythema or edema. Neck: No lymphadenopathy, supple. Respiratory: Diminished at the bases, no wheezes, rales, or rhonchi. No tachypnea. Cardiovascular: Regular rate and rhythm; no murmur, rub, or gallop. Gastrointestinal: Abdomen is soft and non tender, no masses or organomegaly, bowel sounds normal. Skin: Warm and dry, no rashes, normal color. Decubitus ulcer right buttock not examined. Wound VAC in place. Back: Nontender to palpation over the thoracolumbar spine. Extremities: No lower extremity edema, no calf tenderness or swelling. Neurological: Alert and oriented. Right hemiplegia, slurred speech consistent with past CVA. Psychiatric: No agitation but only minimally cooperative with my history and physical. Constitutional: Initial Vital Signs Temperature (C) 36.8 C 01/27/17 12:01 Heart Rate 95 01/27/17 12:01 Respiratory Rate 16 01/27/17 12:01 Blood Pressure 107/68 01/27/17 12:01 O2 Sat (%) 91 L 01/27/17 12:01 O2 Delivery Mode Room Air Allergies/Adverse Reactions: iodine Allergy (Verified 07/26/16 10:53) Home Medications: Medication Instructions Recorded Acetaminophen [Tylenol ES 500 mg 1,000 mg TUBE Q12H PRN 01/27/17 (*)] Ascorbic Acid [Vitamin C 500 mg 500 mg TUBE BID 01/27/17 (*)] Cholecalciferol Vit D3 [Vitamin D3 50,000 unit TUBE Q30D 01/27/17 (*)] Doxazosin Mesylate [Cardura 1 MG 1 mg TUBE DAILY 01/27/17 (*)] Glycopyrrolate 1 mg TUBE BID 01/27/17 Levothyroxine [Synthroid 25 mcg 25 mcg TUBE DAILY06 01/27/17 (*)] Magnesium Hydroxide [Milk of 10 ml TUBE Q8H PRN 01/27/17 Magnesia] Mirtazapine [Remeron] 30 mg TUBE DAILY 01/27/17 Omeprazole [Prilosec 20 mg] 40 mg TUBE BID 01/27/17 Ondansetron Odt [Zofran Odt 4 mg 4 mg TUBE Q4 PRN 01/27/17 (*)] Ranitidine HCl 300 mg TUBE DAILY 01/27/17 Simvastatin [Zocor] 20 mg TUBE DAILY 01/27/17 Tramadol HCl 25 mg TUBE BID 01/27/17 clonazePAM [Clonazepam] 0.25 mg TUBE DAILY 01/27/17 guaiFENesin [Guaifenesin] 400 mg TUBE BID 01/27/17 guaiFENesin/DEXTROMETHORPHAN 10 ml TUBE Q4 PRN 01/27/17 [Robitussin Dm Oral Liquid (*)] oxyCODONE HCL/ACETAMINOPHEN 1 each TUBE Q6H PRN 01/27/17 [Percocet 10-325 mg Tablet] Medical Decision Making - Diagnostics Imaging: I viewed and interpreted images myself ED Course/Re-evaluation: Chest x-ray ordered. CBC, CHEM, lactate drawn. Normal lactate. Patient has refused to wear nasal cannula oxygen. Blow-by was placed by the nurse.. Pulse ox is ranging from 85-91% on blow-by. White blood cell count is elevated but slightly lower than it was when measured recently at [facility]. Patient has been refusing chest x-ray. 1545: Spoke with hospitalist service. Dr. Daily accepts admission. Patient quite reluctant to accept hospitalization but has agreed to remain overnight. Patient has refused chest x-ray at this time and is requesting his normal pain medications. I have spoken with him a couple of times about our concerns and recommendations. I have also spoken with Dr. Lizette Brown--she has a good relationship with the patient. He has finally agreed to a chest x-ray. He was given tramadol and Tylenol for pain control. Patient's chest x-ray was reviewed by me after he left the department. I have read Dr. Malagon is interpretation. He appreciates patchy opacities bilaterally and suspects bilateral lower lobe pneumonia. At the time of my evaluation of this patient he has had fluctuating pulse ox readings with blow-by oxygen placed on his pillow. It is not clear to me that he is receiving any supplemental oxygen. He does not complain of shortness of breath, has not had cough, is not febrile. He has a normal lactate. He is a chronic smoker with no interest in smoking cessation. He has a history of dysphagia and esophageal stricture. It is likely that he chronically aspirates. No antibiotics have been started at this time. The admitting service will be reviewing his chest x- ray and a decision for antibiotics will be made by them. Procalcitonin level has been ordered by the hospitalist. Differential Diagnosis: I considered a differential diagnosis that includes but is not limited to aspiration or other pneumonia, chronic aspiration, reactive airway disease, esophageal stricture, dysphagia. I do not suspect an acute coronary syndrome. I do not suspect pulmonary embolus. - Data Points Laboratory Results: Laboratory Results 01/27/17 11:50 01/27/17 11:50 Medications Given: Discontinued Medications Acetaminophen (Tylenol) 650 mg PO EDNOW ONE Stop: 01/27/17 15:53 Last Admin: 01/27/17 16:03 Dose: 650 mg Sodium Chloride (Ns) 1,000 mls @ 0 mls/hr IV ONCE ONE PRN Reason: Wide Open Stop: 01/27/17 17:25 Last Admin: 01/27/17 17:25 Dose: 1,000 mls Tramadol HCl (Ultram) 25 mg PO EDNOW ONE Stop: 01/27/17 15:53 Last Admin: 01/27/17 16:03 Dose: 25 mg Departure - [facility] Clinical Impression: Aspiration pneumonia Condition: Good Report Scribed for: Sushila Wong Report Scribed by: Henna Beaver Date of Report: 01/27/17 Time of Report: 14:31 Physician Review and Approval Statement: 01/28/17 08:07 Portions of this note were transcribed by the medical associate. I, Dr. Sushila Wong, personally performed the history, physical exam, and medical decision- making; and confirmed the accuracy of the information in the transcribed note.
[2017-01-27] MEDS ORDERED: ACETAMINOPHEN 325 MG TAB PO ONE (15:52)
[2017-01-27] MEDS ORDERED: traMADol 50 MG TAB PO ONE (15:52)
[2017-01-27] MEDS ORDERED: GUAIFENESIN/DM 10 ML UDCUP TUBE PRN (16:29)
[2017-01-27] MEDS ORDERED: ONDANSETRON DISINTEGRATING 4 MG TAB TUBE PRN (16:29)
[2017-01-27] MEDS ORDERED: ACETAMINOPHEN 500 MG TAB TUBE PRN (16:29)
[2017-01-27] MEDS ORDERED: NON-FORMULARY NEW DRUG (Oxycodone Hcl/Acetaminophen [Percocet 10-325 Mg Tablet] 1 EACH) TUBE PRN (16:29)
[2017-01-27] MEDS ORDERED: MAGNESIUM HYDROXIDE 30 ML UDCUP TUBE PRN (16:29)
--- NOTE | 2017-01-27 16:58 | GHP ---
[f rep st] HISTORY AND PHYSICAL DATE OF ADMISSION: 01/27/2017 CHIEF COMPLAINT: Dysphagia. HISTORY OF PRESENT ILLNESS: This is a 56-year-old male, resident of [place], who was brought to the emergency department by EMS due to Dr. Brown's recommendation to evaluate for pneumonia. The pa marisol has a history of CVA, dysphagia, and an ongoing decubitus ulcer, for which he was hospitalized in October of this year and found to have a right buttock abscess with MRSA, status post I and D and wound VAC placement. During the time of my exam, the patient is not really able to verbalize to me while he is here in [facility]. Per report, he was noticed to have some aspiration and choking while eating. The patie nt denies this. He has also been noted to have some hypoxemia. The patient denies cough. He denie s any fever. He does not appear to be a reliable historian. PAST MEDICAL HISTORY: 1. CVA. 2. Hypothyroidism. 3. Dementia. 4. Hypertension. 5. Dysphagia. 6. Gastroesophageal reflux disease. 7. BPH. 8. Depression. 9. Esophageal stricture, requiring dilation. 10. Holliday's esophagus. 11. Right-sided hemiplegia. PAST SURGICAL HISTORY: 1. G-tube placement. 2. Multiple esophageal dilations. 3. Sacral wound debridement done by Dr. Corky Aranda on 11/06/2016 for MRSA wound infection. HOME MEDICATIONS: Reviewed. Refer to [facility] for details. ALLERGIES: Iodine. SOCIAL HISTORY: The patient resides at [place]. He has a history of tobacco use. He denies any alcohol or illicit drug use. FAMILY HISTORY: Reviewed and noncontributory. REVIEW OF SYSTEMS: Comprehensive 10-point review of systems was done and is negative, except for wh at was mentioned in the HPI. However, this does seem to be limited by the patient's cognition. PHYSICAL EXAM: VITAL SIGNS: Blood pressure 119/74, pulse of 87, respiratory rate 14, O2 saturation 96% on room air. Temperature afebrile. GENERAL: No acute distress. HEAD: Normocephalic, atraum atic. EYES: PERRLA. Sclerae anicteric. MOUTH: Moist mucous membranes. NECK: Supple. No lymph adenopathy. CARDIOVASCULAR: S1, S2. No JVD. No lower extremity edema. PULMONARY: Diminished br eath sounds at bilateral bases. There are no wheezes or rales. There is no respiratory distress. Normal respiratory effort. ABDOMEN: Soft, nontender, nondistended. No guarding or rebound tendern ess. Normoactive bowel sounds. EXTREMITIES: No clubbing or cyanosis. NEURO: The patient has res idual right-sided weakness from previous stroke. Do not appear to be any new neurologic deficits. SKIN: Wound VAC is in place over the right hip and did not examine the patient's back for new bed s ores. DIAGNOSTICS: WBC is 14.4, hemoglobin 11.6, hematocrit 36, platelets 406, sodium 133, potassium 89, BUN 23, creatinine 0.9, glucose 106. Chest x-ray was ordered but is currently pending. ASSESSMENT AND PLAN: This is a 56-year-old male with a history of cerebrovascular accident, with re sulting hemiplegia and dysphagia, who I have been asked to admit to the hospital for: 1. Suspected dysphagia with history of esophageal stricture and possible aspiration. Plan: At thi s point, the patient has not yet had a chest x-ray. He does not appear to be toxic. Will defer sta rting antibiotics at this time. Will also obtain a procalcitonin level since I would not be surpris ed if he has some element of chemical pneumonitis from chronic aspiration. Will ask for a speech th erapy evaluation and will also order an upper GI to evaluate for strictures. 2. Right hip wound with history of methicillin-resistant Staphylococcus aureus and wound VAC in [facility]. Plan: Wound Care will be consulted. Per ER report, the case has been discussed with Dr. Brown , who we will see the patient in consultation as well. At this point, the patient will be placed on observation pending further workup. Anticipated length of stay is uncertain. A MOLST form is in the chart, which indicates yes to CPR and full treatment with medical interventions and artificial nutrition. /[id number]/MODL
[2017-01-27] MEDS ORDERED: NS 1,000 ML IV ONE (17:24)
[2017-01-27] MEDS: traMADol 50 MG TAB TUBE SCH (20:57)
[2017-01-27] MEDS: GLYCOPYRROLATE 1 MG TAB TUBE SCH (20:57)
[2017-01-27] MEDS: ASCORBIC ACID 500 MG TAB TUBE SCH (20:57)
[2017-01-27] MEDS: guaiFENesin 200 MG/10 ML UDL TUBE SCH (21:03)
[2017-01-27] MEDS: LANSOPRAZOLE SUSP 30MG/10ML UDSYR (Adult) TUBE SCH (22:51)
[2017-01-28] MEDS: oxyCODONE IR 5 MG TAB TUBE PRN ×3 (02:30→18:17)
[2017-01-28] MEDS: LEVOTHYROXINE 25 MCG TAB TUBE SCH (06:03)
[2017-01-28] MEDS: clonazePAM 0.5 MG TAB TUBE SCH (08:59)
[2017-01-28] MEDS: traMADol 50 MG TAB TUBE SCH ×2 (09:00→20:02)
[2017-01-28] MEDS: guaiFENesin 200 MG/10 ML UDL TUBE SCH ×2 (09:01→20:01)
[2017-01-28] MEDS: GLYCOPYRROLATE 1 MG TAB TUBE SCH ×2 (09:01→20:03)
[2017-01-28] MEDS: MIRTAZAPINE 30 MG TAB TUBE SCH (09:01)
[2017-01-28] MEDS: ATORVASTATIN CALCIUM 10 MG TAB TUBE SCH (09:01)
[2017-01-28] MEDS: FAMOTIDINE 20 MG TAB TUBE SCH (09:01)
[2017-01-28] MEDS: ASCORBIC ACID 500 MG TAB TUBE SCH ×2 (09:01→20:02)
[2017-01-28] MEDS: DOXAZOSIN MESYLATE 1 MG TAB TUBE SCH (09:01)
--- NOTE | 2017-01-28 10:03 | SOAPPROG ---
SOAP Progress Note Assessment/Plan: Assessment: Full consult to follow 56yo M with hemiparesis and right buttock wound well known to Dr. bullard and myself for wound care Wound vac replaced by Love KEARNS Clinitron bed Amniofill? on tuesday with next vac change Will have Case management pursue placement at [facility] or other for inpatient wound care Plan: 01/28/17 10:02 Objective: Vital Signs Temp Pulse Resp BP Pulse Ox 36.4 C 81 16 105/71 97 01/28/17 08:00 01/28/17 08:00 01/28/17 08:00 01/28/17 08:00 01/28/17 08:00 01/27/17 01/28/17 01/29/17 05:59 05:59 05:59 Intake Total 0 Output Total 5 Balance 0 -5 ICD10 Worksheet Patient Problems: Problems Problem Status Onset Cellulitis Acute Cellulitis Acute MRSA (methicillin resistant Staphylococcus aureus) Acute 10/28/16 Pressure ulcer, buttock Acute
--- NOTE | 2017-01-28 10:06 | WOCRNPDOC ---
WOCRN Advanced Assessment Note - Skin Integrity Problem, Advanced Assess Right Ischial Tuberosity Pressure Injury Dressing Type: Black Vac Foam, Wound Vac Dressing Description: Not Intact, Saturated Exudate Amount: Moderate Exudate Color: Red Exudate Characteristic(s): Bloody, Serosanguinous Integumentary Issue Intervention: Dressing Changed David Wound Tissue: Blanching, Erythema David Wound Swelling: None Wound Bed Color: Red, Yellow Wound Bed Constitution: Granulation Tissue (95%), Undermining (0.5cm from 7-9 o' clock), Adhered Slough (<5%) Wound Edges: Epithelizing Site Odor: Moderate Site Measurement - Head-to-Toe Length X Width X Depth (cm): [id number]. Area of undermining mid-wound, shelf-like, tracks superiorly 3.5cm. Pressure Injury Present on Admit: Yes (Documented in H&P) Skin Integrity Problem Comment: Existing vac dressing was partially off, not suctioning since 0230 this morning. Per nursing report, patient refused to allow nursing to apply a wet-to-dry dressing per protocol. Upon assessment, the drape had come loose inferiorly and the distal part of the dressing was uncovered. Wound bed comprised almost entirely of granulation tissue, w/ a trace amount of adhered slough along the R lateral aspect. There was some bleeding along the distal aspect of the wound after the vac sponge was removed, and gentle pressure was applied to achieve hemostasis. Blanching erythema throughout david-wound skin, w/ indentation from previous vac tubing observed. David-wound skin prepped and draped; Replicare hydrocolloid used along the distal margins where david-wound skin is more moist and difficult to seal. Wound bed covered w/ 3 pieces of black foam, along w/ one piece of black foam bridged over patient's R hip onto his RLQ. Set to 125mmHg, low continuous, w/ no leaks. Staff RNs Jaylene and Zully assisting. Due to patient's wound history, specialty bed has been ordered, and turn/off-loading orders implemented.
[2017-01-28] MEDS: LANSOPRAZOLE SUSP 30MG/10ML UDSYR (Adult) TUBE SCH ×2 (11:53→21:00)
--- NOTE | 2017-01-28 13:43 | HOSPPROG ---
Hospitalist Progress Note Assessment/Plan: 56y male with hx of dysphagia. first encounter, chart reviewed. D/W Dr Brown and CM. #Dysphagia chronic [employer] eval done pt refuses to stop eating PEG in place #Hx of esophageal stricture get esophagram #?Asp PNA likely pneumonitis will not give abx given procalcitonin normal no fever #Right hip wound wound vac per Dr Brown will return to [facility] with wound vac #Hx CVA at baseline #Dispo plan to return to [place] in am if esophagram stable Subjective: Wants to go home. Wants to eat. Objective: Vital Signs Temp Pulse Resp BP Pulse Ox 36.7 C 85 16 91/72 L 96 01/28/17 11:49 01/28/17 11:49 01/28/17 11:49 01/28/17 11:49 01/28/17 11:49 01/27/17 01/28/17 01/29/17 05:59 05:59 05:59 Intake Total 0 Output Total 5 Balance 0 -5 - Physical Exam Constitutional: not in pain, chronically ill appearing, cachectic Eyes: PERRL, anicteric sclera, EOMI Ears, Nose, Mouth, Throat: moist mucous membranes, hearing normal, ears appear normal Cardiovascular: No JVD, No tachycardia, No edema Respiratory: no respiratory distress, no rales or rhonchi, reduced air movement Gastrointestinal: No tenderness, No ascites, No guarding Skin: warm, normal color, erythema, pressure ulcer Musculoskeletal: no joint effusions, pain with ROM, generalized weakness Neurologic: weakness Psychiatric: not anxious, poor insight, poor judgement, poor memory ICD10 Worksheet Patient Problems: Problems Problem Status Onset Cellulitis Acute MRSA (methicillin resistant Staphylococcus aureus) Acute 10/28/16 Pressure ulcer, buttock Acute Cellulitis Acute
[2017-01-28] MEDS: OXYCODONE/APAP 5/325 TAB TUBE PRN ×2 (14:04→20:02)
[2017-01-29 06:08] VITALS: RESP 16
[2017-01-29] MEDS: OXYCODONE/APAP 5/325 TAB TUBE PRN (06:21)
[2017-01-29] MEDS: LEVOTHYROXINE 25 MCG TAB TUBE SCH (06:21)
[2017-01-29 07:31] VITALS: BP 102/64; PULSE 73; TEMP 98.2; O2SAT 96
[2017-01-29] MEDS: oxyCODONE IR 5 MG TAB TUBE PRN (08:55)
--- NOTE | 2017-01-29 09:45 | PDIAF ---
- Diagnosis Diagnosis: wound Code Status: Full Code - Medication Management Discharge Medications: Medications to Continue on Transfer Acetaminophen [Tylenol ES 500 mg (*)] 1,000 mg TUBE Q12H PRN 01/27/17 [Last Taken Unknown] Ascorbic Acid [Vitamin C 500 mg (*)] 500 mg TUBE BID 01/27/17 [Last Taken Unknown] Cholecalciferol Vit D3 [Vitamin D3 (*)] 50,000 unit TUBE Q30D 01/27/17 [Last Taken Unknown] Doxazosin Mesylate [Cardura 1 MG (*)] 1 mg TUBE DAILY 01/27/17 [Last Taken Unknown] Glycopyrrolate 1 mg TUBE BID 01/27/17 [Last Taken Unknown] Levothyroxine [Synthroid 25 mcg (*)] 25 mcg TUBE DAILY06 01/27/17 [Last Taken Unknown] Magnesium Hydroxide [Milk of Magnesia] 10 ml TUBE Q8H PRN 01/27/17 [Last Taken Unknown] Mirtazapine [Remeron] 30 mg TUBE DAILY 01/27/17 [Last Taken Unknown] Omeprazole [Prilosec 20 mg] 40 mg TUBE BID 01/27/17 [Last Taken Unknown] Ondansetron Odt [Zofran Odt 4 mg (*)] 4 mg TUBE Q4 PRN 01/27/17 [Last Taken Unknown] Ranitidine HCl 300 mg TUBE DAILY 01/27/17 [Last Taken Unknown] Simvastatin [Zocor] 20 mg TUBE DAILY 01/27/17 [Last Taken Unknown] Tramadol HCl 25 mg TUBE BID 01/27/17 [Last Taken Unknown] clonazePAM [Clonazepam] 0.25 mg TUBE DAILY 01/27/17 [Last Taken Unknown] guaiFENesin [Guaifenesin] 400 mg TUBE BID 01/27/17 [Last Taken Unknown] guaiFENesin/DEXTROMETHORPHAN [Robitussin Dm Oral Liquid (*)] 10 ml TUBE Q4 PRN 01/27/17 [Last Taken Unknown] oxyCODONE HCL/ACETAMINOPHEN [Percocet 10-325 mg Tablet] 1 each TUBE Q6H PRN [Last Taken Unknown] oxyCODONE IR [Oxycodone Ir (*)] 5 mg TUBE Q6 PRN #0 tab 01/29/17 [Last Taken Unknown] Discharge Medications: Refer to the Discharge Home Medication list for PRN reason. PICC Care - Routine: N/A - Orders Services needed: Registered Nurse, Physical Therapy, Occupational Therapy Diet Texture: Regular Texture Diet, Thin Liquids - Follow Up Care Current Providers and Referrals: Lizette Brown MD [Medical Doctor] - Dre Benson MD [Medical Doctor] - Patient,NotPresent [Unknown] - As per Instructions
[2017-01-29] MEDS: DOXAZOSIN MESYLATE 1 MG TAB TUBE SCH (09:54)
[2017-01-29] MEDS: ASCORBIC ACID 500 MG TAB TUBE SCH (09:54)
[2017-01-29] MEDS: FAMOTIDINE 20 MG TAB TUBE SCH (09:54)
[2017-01-29] MEDS: MIRTAZAPINE 30 MG TAB TUBE SCH (09:54)
[2017-01-29] MEDS: traMADol 50 MG TAB TUBE SCH (09:55)
[2017-01-29] MEDS: ATORVASTATIN CALCIUM 10 MG TAB TUBE SCH (09:55)
[2017-01-29] MEDS: GLYCOPYRROLATE 1 MG TAB TUBE SCH (09:55)
[2017-01-29] MEDS: clonazePAM 0.5 MG TAB TUBE SCH (09:55)
[2017-01-29] MEDS: guaiFENesin 200 MG/10 ML UDL TUBE SCH (09:56)
[2017-01-29] MEDS: LANSOPRAZOLE SUSP 30MG/10ML UDSYR (Adult) TUBE SCH (09:56)
--- NOTE | 2017-01-29 11:53 | SOAPPROG ---
SOAP Progress Note Assessment/Plan: Assessment: Going back to [place] today, will follow up with Dr. Walsh in wound clinic next week. Wound VAC appears to be holding suction appropriately, patient has minimal complaints today. Plan: 01/29/17 11:53 Objective: Vital Signs Temp Pulse Resp BP Pulse Ox 36.8 C 73 16 102/64 96 01/29/17 07:30 01/29/17 07:30 01/29/17 07:30 01/29/17 07:30 01/29/17 07:30 01/28/17 01/29/17 01/30/17 05:59 05:59 05:59 Intake Total 0 970 Output Total 5 0 Balance 0 965 0 ICD10 Worksheet Patient Problems: Problems Problem Status Onset Cellulitis Acute Cellulitis Acute MRSA (methicillin resistant Staphylococcus aureus) Acute 10/28/16 Pressure ulcer, buttock Acute
--- NOTE | 2017-01-29 21:23 | GDS ---
[f rep st] DISCHARGE SUMMARY DISCHARGE DIAGNOSES: 1. Dysphagia, with a history of esophageal stricture. 2. Right hip wound, with wound VAC. 3. History of cerebrovascular accident. CONSULTATIONS: 1. Lizette Brown MD, of Surgery. 2. Wound Care. STUDIES AND PROCEDURES DONE: Esophagram. PHYSICAL EXAM: GENERAL: The patient is alert. VITAL SIGNS: Afebrile at 36.8, pulse is 73, respir atory rate 16, blood pressure is 102/64. He is saturating greater than 90% on 2 L. I have seen and evaluated the patient on the day of discharge. HOSPITAL COURSE: 1. The patient is a 56-year-old male who has a history of a CVA, and resides at [place]. He pre sented to the hospital for further evaluation of possible aspiration pneumonia. During this hospita l course, he was noted to have chronic dysphagia. He has been evaluated by Speech Therapy, and has signed a contract stating that he understands the complications and risks, and will continue to have oral intake. 2. History of esophageal stricture. An esophagram was performed during this hospital course. It i s noted that the patient has a stricture in the distal esophagus, but it is asymptomatic. He states that he does not feel that anything is getting stuck or having any complications I reviewed the pat demetriant's care with Gastroenterology. It is recommended that he follow up in the outpatient setting wi th his primary ferry engineer, Dr. Kendall Benson, for further dilation and Holliday's evaluation. The patient does not wish to have any esophageal dilation at this time. He does not feel that this is a complication or a problem. He is a high risk, given the fact that he would require anesthesia, with potentially low yield and asymptomatic. He will follow up outside the hospital for further ma nagement of this chronic condition. 3. Questionable aspiration pneumonia. The patient does not have any signs of infection at this pauly e. He likely has a chronic pneumonitis from his chronic aspiration. Antibiotics have not been give n during this hospital course. 4. Right hip wound. This is followed by Dr. Brown at [facility]. His wound VAC has been salazar nged during this hospitalization. The patient requires followup at the Wound Clinic within the next week for further wound management. DISPOSITION: The patient will be discharged to return to [place] where he normally resides. The re are no pending studies. DISCHARGE MEDICATIONS: Please refer to EMR form. I have not adjusted any of his previously prescri bed home medications. I have discussed the patient's disposition with Dr. Marko Van, as well as Sandy Dillard, who are in agreement with this disposition plan. I spent greater than 35 minutes in the care, coordination, and management of this discharge. /[id number]/MODL
[2017-02-05] MEDS ORDERED: CHOLECALCIFEROL VIT D3 50,000 UNIT CAP TUBE SCH (09:00)
== END 2017-01-29 12:14 | DRG 391 ==
LOC: EDUNIT# → INTOOBSV 15:50 → OBSVTOIN 16:30 → F3N 17:42
PROVIDERS: ADMIT Family Medicine; ATTEND Family Medicine
DX: R13.10 Dysphagia, unspecified (principal); J69.0 Pneumonitis due to inhalation of food and vomit; K22.2 Esophageal obstruction; K21.9 Gastro-esophageal reflux disease without esophagitis; K22.70 Barrett's esophagus without dysplasia; L89.319 Pressure ulcer of right buttock, unspecified stage; I69.351 Hemiplegia and hemiparesis following cerebral infarction affecting right dominant side; F03.90 Unspecified dementia, unspecified severity, without behavioral disturbance, psychotic disturbance, mood disturbance, and anxiety; E03.9 Hypothyroidism, unspecified; I10 Essential (primary) hypertension; Z86.14 Personal history of Methicillin resistant Staphylococcus aureus infection; F17.210 Nicotine dependence, cigarettes, uncomplicated
CPT/HCPCS: 92610-GN; 97166-GO; G0378; G8987-GO-CM; G8988-GO-CM; G8989-GO-CM

== ENCOUNTER 2017-06-14 07:50 | Day surgery (SDC) | payer MEDICAID ==
[2017-06-14] MEDS ORDERED: LR 1,000 ML IV ONE (08:24)
--- NOTE | 2017-06-14 09:22 | PDANEPAE ---
ANE History of Present Illness esophageal stricture ANE Past Medical History - Cardiovascular History Hx Hypertension: Yes Hx Arrhythmias: No Hx Chest Pain: No Hx Coronary Artery / Peripheral Vascular Disease: No Hx CHF / Valvular Disease: No Hx Palpitations: No Cardiovascular History Comment: HYPERLIPIDEMIA. 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 CVA 06/2011. FACIAL DROOP. SLURRED SPEECH. R SIDE WEAKNESS. RT FOOT DROP - Endocrine History Hx Diabetes: No Endocrine History Comment: HYPOTHYROID - Renal History Hx Renal Disorders: Yes Renal History Comment: BPH - Liver History Hx Hepatic Disorders: No - Neurological & Psychiatric Hx Hx Neurological and Psychiatric Disorders: Yes Neurological / Psychiatric History Comment: CAN BE VERBALLY ABUSIVE AND HAVE LOW LEVEL OF PATIENCE. depression. senile dementia - Cancer History Hx Cancer: No - Congenital Disorder History Hx Congenital Disorders: No - GI History Hx Gastrointestinal Disorders: Yes Gastrointestinal History Comment: SWALLOW RISK POST CVA 2010. BARRETTS ESOPHAGUS. chronic heartburn. feeding tube - Other Health History Other Health History: RT BUTTOCKS WOUND. increased mouth secretions - Chronic Pain History Chronic Pain: No - Surgical History Prior Surgeries: I&D RT BUTTOCKS 10/28/2016. EGD WITH DILATION 04/27/16, , 07/07/16. G tube 2009. ing. hernias 1978,1988 ANE Review of Systems Review of Systems: ANE Patient History - Allergies Allergies/Adverse Reactions: iodine Allergy (Verified 07/26/16 10:53) - Home Medications Home Medications: Acetaminophen [Tylenol ES 500 mg (*)] 1,000 mg TUBE Q12H PRN 01/27/17 [Last Taken 06/13/17] Cholecalciferol Vit D3 [Vitamin D3 (*)] 50,000 unit TUBE Q30D 01/27/17 [Last Taken 06/13/17] Doxazosin Mesylate [Cardura 1 MG (*)] 1 mg TUBE HS 01/27/17 [Last Taken 06/13/17 ] Levothyroxine [Synthroid 25 mcg (*)] 25 mcg TUBE DAILY06 01/27/17 [Last Taken ] Magnesium Hydroxide [Milk of Magnesia] 10 ml TUBE Q8H PRN 01/27/17 [Last Taken 06/13/17] Mirtazapine [Remeron] 30 mg TUBE HS 01/27/17 [Last Taken 06/13/17] Ranitidine HCl 300 mg TUBE HS 01/27/17 [Last Taken 06/13/17] guaiFENesin [Guaifenesin] 400 mg TUBE BID 01/27/17 [Last Taken 06/13/17] oxyCODONE HCL/ACETAMINOPHEN [Percocet 10-325 mg Tablet] 1 each TUBE Q6H PRN [Last Taken 06/13/17] Atorvastatin Calcium HS 06/10/17 [Last Taken 06/13/17] Imodium 2 mg (*) PRN 06/10/17 [Last Taken 06/14/17] Pepcid DAILY06 06/10/17 [Last Taken 06/13/17] Robinul Forte BID 06/10/17 [Last Taken 06/13/17] - NPO status NPO Since - Liquids (Date): 06/13/17 NPO Since - Solids (Date): 06/13/17 - Smoking Hx Smoking Status: Heavy smoker - Family Anes Hx Family Hx Anesthesia Complications: unknown ANE Labs/Vital Signs - Vital Signs Blood Pressure: 103/66 Heart Rate: 76 Respiratory Rate: 16 O2 Sat (%): 93 Height: 177.8 cm Weight: 77.111 kg ANE Physical Exam - Airway Neck exam: FROM Mallampati Score: Class 2 Mouth exam: poor dentition - Pulmonary Pulmonary: no respiratory distress - Cardiovascular Cardiovascular: regular rate and rhythym - ASA Status ASA Status: III ANE Anesthesia Plan Total IV Anesthesia: Yes
[2017-06-14] MEDS ORDERED: PROPOFOL 200 MG/20 ML VIAL ONE ×2 (09:30)
[2017-06-14] MEDS ORDERED: NALOXONE HCL 0.4 MG/ML INJ IVP PRN (09:54)
--- NOTE | 2017-06-14 09:58 | POSTANESTH ---
Post Anesthetic Evaluation Cardiovascular Status: Normal, Stable Respiratory Status: Normal, Stable Level of Consciousness/Mental Status: Can Participate in Eval Pain Control: Adequate, Prn Tx Ordered Nausea/Vomiting Control: Adequate, Prn Tx Ordered Complications Possibly Related to Anesthesia: None Noted
--- NOTE | 2017-06-14 10:00 | GIREPORT ---
[facility] Surgical Services - Endoscopy Department Patient Name: Tuan Hooker Procedure Date: 06/14/2017 9:23 AM Patient Type: Outpatient Attending MD/ ER Physician: Wenceslao Covington MD Procedure: Upper GI endoscopy Indications: Dysphagia. 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 Providers: Wenceslao Covington MD Medicines: Monitored Anesthesia Care Complications: No immediate complications. Description of Procedure: After obtaining informed consent, the endoscope was passed under direct vision. Throughout the procedure, the patient's blood pressure, pulse, and oxygen saturations were monitored continuously. The Endoscope was intro duced through the mouth, and advanced to the lower third of esophagus. The up per GI endoscopy was accomplished without difficulty. The patient tolerated the procedure well. Findings: One severe benign-appearing, intrinsic stenosis was found 35 cm from th e incisors. This measured 6 mm (inner diameter) x 2 cm (in length) and wa s not traversed. A TTS dilator was passed through the scope. Dilation with an 8-9-10 mm balloon dilator was performed to 10 mm. Mucosal disruption wa s seen without evidence of perforation. Estimated Blood Loss: Estimated blood loss: none. Post Op Diagnosis: - Benign-appearing esophageal stenosis. Dilated. - No specimens collected. Recommendation: - Discharge patient to home (with escort). - Soft diet. - Continue present medications. - Repeat upper endoscopy in 1 month for repeat dilation with anesthesia at [facility] with Dr. Benson. - Thank you for allowing me to participate in the care of your patient. Attending Participation: I personally performed the entire procedure. Wenceslao Covington MD Wenceslao Covington MD 06/14/2017 9:59:37 AM This report has been signed electronicallyDashital Covington MD Number of Addenda: 0 Note Initiated On: 06/14/2017 9:23 AM [email or web address]}
--- NOTE | 2017-06-14 10:00 | GIREPORT ---
[facility] Surgical Services - Endoscopy Department Patient Name: Tuan Hooker Procedure Date: 06/14/2017 9:23 AM Patient Type: Outpatient Attending MD/ ER Physician: Wenceslao Covington MD Procedure: Upper GI endoscopy Indications: Dysphagia. 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 Providers: Wenceslao Covington MD Medicines: Monitored Anesthesia Care Complications: No immediate complications. Description of Procedure: After obtaining informed consent, the endoscope was passed under direct vision. Throughout the procedure, the patient's blood pressure, pulse, and oxygen saturations were monitored continuously. The Endoscope was intro duced through the mouth, and advanced to the lower third of esophagus. The up per GI endoscopy was accomplished without difficulty. The patient tolerated the procedure well. Findings: One severe benign-appearing, intrinsic stenosis was found 35 cm from th e incisors. This measured 6 mm (inner diameter) x 2 cm (in length) and wa s not traversed. A TTS dilator was passed through the scope. Dilation with an 8-9-10 mm balloon dilator was performed to 10 mm. Mucosal disruption wa s seen without evidence of perforation. Estimated Blood Loss: Estimated blood loss: none. Post Op Diagnosis: - Benign-appearing esophageal stenosis. Dilated. - No specimens collected. Recommendation: - Discharge patient to home (with escort). - Soft diet. - Continue present medications. - Repeat upper endoscopy in 1 month for repeat dilation with anesthesia at [facility] with Dr. Benson. - Thank you for allowing me to participate in the care of your patient. Attending Participation: I personally performed the entire procedure. Wenceslao Covington MD Wenceslao Covington MD 06/14/2017 9:59:37 AM This report has been signed electronicallyDashital Covington MD Number of Addenda: 0 Note Initiated On: 06/14/2017 9:23 AM [email or web address]}
--- NOTE | 2017-06-14 10:00 | GIREPORT ---
[facility] Surgical Services - Endoscopy Department Patient Name: Tuan Hooker Procedure Date: 06/14/2017 9:23 AM Patient Type: Outpatient Attending MD/ ER Physician: Wenceslao Covington MD Procedure: Upper GI endoscopy Indications: Dysphagia. 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 Providers: Wenceslao Covington MD Medicines: Monitored Anesthesia Care Complications: No immediate complications. Description of Procedure: After obtaining informed consent, the endoscope was passed under direct vision. Throughout the procedure, the patient's blood pressure, pulse, and oxygen saturations were monitored continuously. The Endoscope was intro duced through the mouth, and advanced to the lower third of esophagus. The up per GI endoscopy was accomplished without difficulty. The patient tolerated the procedure well. Findings: One severe benign-appearing, intrinsic stenosis was found 35 cm from th e incisors. This measured 6 mm (inner diameter) x 2 cm (in length) and wa s not traversed. A TTS dilator was passed through the scope. Dilation with an 8-9-10 mm balloon dilator was performed to 10 mm. Mucosal disruption wa s seen without evidence of perforation. Estimated Blood Loss: Estimated blood loss: none. Post Op Diagnosis: - Benign-appearing esophageal stenosis. Dilated. - No specimens collected. Recommendation: - Discharge patient to home (with escort). - Soft diet. - Continue present medications. - Repeat upper endoscopy in 1 month for repeat dilation with anesthesia at [facility] with Dr. Benson. - Thank you for allowing me to participate in the care of your patient. Attending Participation: I personally performed the entire procedure. Wenceslao Covington MD Wenceslao Covington MD 06/14/2017 9:59:37 AM This report has been signed electronicallyDashital Covington MD Number of Addenda: 0 Note Initiated On: 06/14/2017 9:23 AM [email or web address]}
[2017-06-14 10:55] VITALS: BP 121/80; PULSE 80; RESP 18; TEMP 97.3; O2SAT 92
== END 2017-06-14 10:53 ==
LOC: FSGY 07:50
PROVIDERS: ATTEND Internal Medicine Gastroenterology
PROC: 0D738ZZ Dilation of Lower Esophagus, Via Natural or Artificial Opening Endoscopic (ICD-10-PCS; principal; 2017-06-14 09:15)
DX: K22.2 Esophageal obstruction (principal); R13.10 Dysphagia, unspecified; E78.5 Hyperlipidemia, unspecified; E03.9 Hypothyroidism, unspecified; F17.200 Nicotine dependence, unspecified, uncomplicated
CPT/HCPCS: 43245; C1726; J2704

== ENCOUNTER → 2017-07-14 | Day surgery (SDC) | payer MEDICAID ==
[~2017-07-14] MED LIST: LR 1,000 ML IV ONE; LR 500 ML IV PRN; NALOXONE HCL 0.4 MG/ML INJ IVP PRN; ONDANSETRON 4 MG/2 ML VIAL IVP PRN; PROPOFOL/EMULSION 500 MG/50 ML BOTTLE IV ONE; TRIAMCINOLONE ACETONIDE 40 MG/ML VIAL IM ONE; TRIAMCINOLONE ACETONIDE 40 MG/ML VIAL ONE
--- NOTE | 2017-07-14 09:05 | PDGENHP ---
History & Physical Chief Complaint: dysphagia History of Present Illness: hx esoph stricture Pertinent Past, Social, Family History: tobacco - 1/2 to one pack per day. alcohol none. fhx no esoph cancer Relevant Physical Exam: a+ ox3. CTA. S!S2. +Bs, soft nt Cardiorespiratory Assessment: class 3
--- NOTE | 2017-07-14 09:07 | PDANEPAE ---
ANE History of Present Illness Patient presents for EGD/Dilation ANE Past Medical History - Cardiovascular History Hx Hypertension: Yes Hx Arrhythmias: No Hx Chest Pain: No Hx Coronary Artery / Peripheral Vascular Disease: No Hx CHF / Valvular Disease: No Hx Palpitations: No Cardiovascular History Comment: HYPERLIPIDEMIA - Pulmonary History Hx COPD: No Hx Asthma/Reactive Airway Disease: No Hx Recent Upper Respiratory Infection: No Hx Oxygen in Use at Home: No Hx Sleep Apnea: No Sleep Apnea Screening Result - Last Documented: Positive - Neurologic History Hx Cerebrovascular Accident: Yes Hx Seizures: No Hx Dementia: Yes Neurologic History Comment: 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 CVA 06/2011. FACIAL DROOP. SLURRED SPEECH. R SIDE WEAKNESS. RT FOOT DROP - Endocrine History Hx Diabetes: No Endocrine History Comment: HYPOTHYROID - Renal History Hx Renal Disorders: Yes Renal History Comment: BPH - Liver History Hx Hepatic Disorders: No - Neurological & Psychiatric Hx Hx Neurological and Psychiatric Disorders: Yes Neurological / Psychiatric History Comment: CAN BE VERBALLY ABUSIVE AND HAVE LOW LEVEL OF PATIENCE. depression. senile dementia - Cancer History Hx Cancer: No - Congenital Disorder History Hx Congenital Disorders: No - GI History Hx Gastrointestinal Disorders: Yes Gastrointestinal History Comment: SWALLOW RISK POST CVA 2010. BARRETTS ESOPHAGUS HAVING MULTIPLE ESOPHAGEAL DILATIONS IN AN EFFORT TO GET RID OF G TUBE. chronic heartburn. feeding tube - Other Health History Other Health History: RT BUTTOCKS WOUND I&D 10/2016. increased mouth secretions. RLE DVT 2015 - Chronic Pain History Chronic Pain: No - Surgical History Prior Surgeries: I&D RT BUTTOCKS 10/28/2016. EGD WITH DILATION X4 MOST RECENT . G tube 2009. ing. hernias 1978,1988 ANE Review of Systems Review of Systems: - Exercise capacity METS (RN): 2 METS ANE Patient History - Allergies Allergies/Adverse Reactions: iodine Allergy (Verified 07/26/16 10:53) - Home Medications Home medications: home medication list seen and reviewed Home Medications: Acetaminophen [Tylenol ES 500 mg (*)] 1,000 mg TUBE Q12H PRN 01/27/17 [Last Taken 06/13/17] Cholecalciferol Vit D3 [Vitamin D3 (*)] 50,000 unit TUBE Q30D 01/27/17 [Last Taken 06/13/17] Doxazosin Mesylate [Cardura 1 MG (*)] 1 mg TUBE HS 01/27/17 [Last Taken 06/13/17 ] Levothyroxine [Synthroid 25 mcg (*)] 25 mcg TUBE DAILY06 01/27/17 [Last Taken ] Magnesium Hydroxide [Milk of Magnesia] 10 ml TUBE Q8H PRN 01/27/17 [Last Taken 06/13/17] Mirtazapine [Remeron] 30 mg TUBE HS 01/27/17 [Last Taken 06/13/17] Ranitidine HCl 300 mg TUBE HS 01/27/17 [Last Taken 06/13/17] guaiFENesin [Guaifenesin] 400 mg TUBE BID 01/27/17 [Last Taken 06/13/17] oxyCODONE HCL/ACETAMINOPHEN [Percocet 10-325 mg Tablet] 1 each TUBE Q6H PRN [Last Taken 06/13/17] Atorvastatin Calcium TUBE HS 06/10/17 [Last Taken 06/13/17] Imodium 2 mg (*) TUBE PRN 06/10/17 [Last Taken 06/14/17] Pepcid TUBE DAILY06 06/10/17 [Last Taken 06/13/17] Robinul Forte TUBE BID 06/10/17 [Last Taken 06/13/17] - NPO status NPO Status: no food or drink >8 hours - Smoking Hx Smoking Status: Heavy smoker - Family Anes Hx Family Hx Anesthesia Complications: unknown ANE Labs/Vital Signs - Vital Signs Height: 172.72 cm Weight: 48.534 kg ANE Physical Exam - Airway Neck exam: FROM Mallampati Score: Class 2 Mouth exam: poor dentition - Pulmonary Pulmonary: no respiratory distress - Cardiovascular Cardiovascular: regular rate and rhythym - ASA Status ASA Status: III (Poor dentition) ANE Anesthesia Plan Anesthesia Plan: GA with mask (RBA discussed, patient agrees to proceed)
--- NOTE | 2017-07-14 09:49 | GIREPORT ---
[facility] Surgical Services - Endoscopy Department Patient Name: Tuan Hooker Procedure Date: 07/14/2017 8:28 AM Patient Type: Outpatient Attending MD/ ER Physician: Naheed Palma Procedure: Upper GI endoscopy Indications: Dysphagia, For therapy of esophageal stenosis Providers: Tonny Benson MD Medicines: Total IV Anesthesia (TIVA) - IV general Complications: No immediate complications. Estimated blood loss: Minimal. Description of Procedure: After obtaining informed consent, the endoscope was passed under direct vision. Throughout the procedure, the patient's blood pressure, pulse, and oxygen saturations were monitored continuously. The Endoscope was intro duced through the mouth, and advanced to the second part of duodenum. The [facility] er GI endoscopy was accomplished without difficulty. The patient tolerated th e procedure well. Findings: The upper third of the esophagus was normal. Biopsies were obtained fro m the proximal and distal esophagus with cold forceps for histology of suspec fede eosinophilic esophagitis. One moderate benign-appearing, intrinsic stenosis was found in the midd le third of the esophagus. This measured 1 cm (inner diameter) and was traversed. Area was successfully injected with 4 mL of triamcinolone (4 0 mg/mL) for drug delivery. Estimated blood loss was minimal. A TTS dilat or was passed through the scope. Dilation with a 12-13.5-15 mm x 5.5 cm CR E balloon dilator was performed to 15 mm. A TTS dilator was passed throug h the scope. Dilation with a 15-16.5-18 mm x 5.5 cm CRE balloon dilator was performed to 16.5 mm. The dilation site was examined and showed moderat e improvement in luminal narrowing. Estimated blood loss was minimal. There were esophageal mucosal changes consistent with Holliday's esophag us present in the middle third of the esophagus and in the lower third of the esophagus. Mucosa was biopsied with a cold forceps for histology. One specimen bottle was sent to pathology. Estimated blood loss was minimal . A hiatal hernia was present. There was evidence of an intact gastrostomy with a patent G-tube presen t on the greater curvature of the stomach. The examined duodenum was normal. Estimated Blood Loss: Estimated blood loss was minimal. Post Op Diagnosis: - Normal upper third of esophagus. Biopsied. - Benign-appearing esophageal stenosis. Injected. Dilated. 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 Biops ied. - Hiatal hernia. - Intact gastrostomy with a patent G-tube present. - Normal examined duodenum. Recommendation: - Await pathology results. - My office will call with the pathology result with 5-7 days. If you h ave not heard from my office by -14, do not assume the pathology is isacc l, please call [phone] to get the pathology results. - Follow an antireflux regimen. - Patient has a contact number available for emergencies. The signs and symptoms of potential delayed complications were discussed with the pat ient. Return to normal activities tomorrow. Written discharge instructions we re provided to the patient. - Continue present medications. - Use Protonix (pantoprazole) 40 mg PO daily. Could other PPI such as Omeprazole 40mg, Esomeprazole 40mg. Take 30-60 before breakfast. - Use Zantac (ranitidine) 300 mg PO at bedtime. - Repeat upper endoscopy in 4 weeks for retreatment. - Return to primary care physician as previously scheduled. - Thank you for allowing me to help in your patient's care. Do not hesi lal to call with any questions. Attending Participation: I personally performed the entire procedure. Marcelino Lancaster M.D Tonny W MD Marcelino 07/14/2017 9:49:06 AM This report has been signed electronicallyMathew MD Marcelino Number of Addenda: 0 Note Initiated On: 07/14/2017 8:28 AM [email or web address]
--- NOTE | 2017-07-14 09:51 | POSTANESTH ---
Post Anesthetic Evaluation Cardiovascular Status: Similar to Pre-Op Cond Respiratory Status: Similar to Pre-op Cond. Level of Consciousness/Mental Status: Mildly Sleepy, Arousable Pain Control: Adequate, Prn Tx Ordered Nausea/Vomiting Control: Adequate, Prn Tx Ordered Complications Possibly Related to Anesthesia: None Noted
[2017-07-14 10:21] VITALS: TEMP 97.7
[2017-07-14 10:26] VITALS: RESP 17
[2017-07-14 10:33] VITALS: BP 118/78; O2SAT 91
== END | disposition home or self-care (01) ==
LOC: FSGY 08:37
PROVIDERS: ATTEND Internal Medicine Gastroenterology
PROC: 0DB38ZX Excision of Lower Esophagus, Via Natural or Artificial Opening Endoscopic, Diagnostic (ICD-10-PCS; principal; 2017-07-14 09:00)
PROC: 0DB28ZX Excision of Middle Esophagus, Via Natural or Artificial Opening Endoscopic, Diagnostic (ICD-10-PCS; principal; 2017-07-14 09:00)
PROC: 0DB18ZX Excision of Upper Esophagus, Via Natural or Artificial Opening Endoscopic, Diagnostic (ICD-10-PCS; principal; 2017-07-14 09:00)
PROC: 0D728ZZ Dilation of Middle Esophagus, Via Natural or Artificial Opening Endoscopic (ICD-10-PCS; principal; 2017-07-14 09:00)
DX: K22.70 Barrett's esophagus without dysplasia (principal); R13.10 Dysphagia, unspecified; F17.210 Nicotine dependence, cigarettes, uncomplicated; I10 Essential (primary) hypertension; E78.5 Hyperlipidemia, unspecified; E03.9 Hypothyroidism, unspecified; I69.351 Hemiplegia and hemiparesis following cerebral infarction affecting right dominant side; F03.90 Unspecified dementia, unspecified severity, without behavioral disturbance, psychotic disturbance, mood disturbance, and anxiety; Z93.1 Gastrostomy status
CPT/HCPCS: 43239; 43249; C1726; J2704; J3301

== ENCOUNTER 2017-09-14 07:38 | Day surgery (SDC) | payer MEDICAID ==
[2017-09-14] MEDS ORDERED: LR 1,000 ML IV ONE (08:01)
--- NOTE | 2017-09-14 08:48 | PDANEPAE ---
ANE History of Present Illness gerd ANE Past Medical History - Cardiovascular History Hx Hypertension: Yes Hx Arrhythmias: No Hx Chest Pain: No Hx Coronary Artery / Peripheral Vascular Disease: No Hx CHF / Valvular Disease: No Hx Palpitations: No Cardiovascular History Comment: HYPERLIPIDEMIA. 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 CVA 06/2011. FACIAL DROOP. SLURRED SPEECH. R SIDE WEAKNESS. RT FOOT DROP. senile dementia - Endocrine History Hx Diabetes: No Endocrine History Comment: hypothyroidism - Renal History Hx Renal Disorders: Yes Renal History Comment: BPH - Liver History Hx Hepatic Disorders: No - Neurological & Psychiatric Hx Hx Neurological and Psychiatric Disorders: Yes Neurological / Psychiatric History Comment: CAN BE VERBALLY ABUSIVE AND HAVE LOW LEVEL OF PATIENCE. depression - Cancer History Hx Cancer: No - Congenital Disorder History Hx Congenital Disorders: No - GI History Hx Gastrointestinal Disorders: Yes Gastrointestinal History Comment: SWALLOW RISK POST CVA 2010. BARRETTS ESOPHAGUS HAVING MULTIPLE ESOPHAGEAL DILATIONS IN AN EFFORT TO GET RID OF G TUBE. chronic heartburn - Other Health History Other Health History: increased mouth secretions. wears glasses - Chronic Pain History Chronic Pain: No - Surgical History Prior Surgeries: 07/16/17 EGD with biopsies and dilation with [place]. I&D RT BUTTOCKS 10/28/2016. EGD WITH DILATION X4 MOST RECENT 06/14/2017. G tube 2009. ing. hernias 1978,1988 ANE Review of Systems Review of Systems: - Exercise capacity METS (RN): 2 METS ANE Patient History - Allergies Allergies/Adverse Reactions: iodine Allergy (Verified 08/29/17 11:15) - Home Medications Home Medications: RX: Acetaminophen [Tylenol ES 500 mg (*)] 01/27/17 [Last Taken 06/13/17] RX: Cholecalciferol Vit D3 [Vitamin D3 (*)] 01/27/17 [Last Taken 06/13/17] RX: Doxazosin Mesylate [Cardura 1 MG (*)] 01/27/17 [Last Taken 06/13/17] RX: Levothyroxine [Synthroid 25 mcg (*)] 01/27/17 [Last Taken 06/13/17] RX: Mirtazapine [Remeron] 01/27/17 [Last Taken 06/13/17] RX: Ranitidine HCl 01/27/17 [Last Taken 06/13/17] RX: guaiFENesin [Guaifenesin] 01/27/17 [Last Taken 06/13/17] RX: oxyCODONE HCL/ACETAMINOPHEN [Percocet 10-325 mg Tablet] 01/27/17 [Last Taken 06/13/17] Atorvastatin Calcium 06/10/17 [Last Taken 06/13/17] Imodium 2 mg (*) 06/10/17 [Last Taken 06/14/17] Pepcid 06/10/17 [Last Taken 06/13/17] Robinul Forte 06/10/17 [Last Taken 06/13/17] Artificial Tears 09/01/17 [Last Taken Unknown] Melatonin 09/01/17 [Last Taken Unknown] Robitussin 09/01/17 [Last Taken Unknown] - NPO status NPO Since - Liquids (Date): 09/13/17 NPO Since - Liquids (Time): 19:00 NPO Since - Solids (Date): 09/13/17 NPO Since - Solids (Time): 19:00 - Smoking Hx Smoking Status: Heavy smoker - Family Anes Hx Family Hx Anesthesia Complications: unknown ANE Labs/Vital Signs - Vital Signs Blood Pressure: 122/77 Heart Rate: 71 Respiratory Rate: 16 O2 Sat (%): 88 Height: 172.72 cm Weight: 74.843 kg ANE Physical Exam - Airway Neck exam: FROM Mallampati Score: Class 2 Mouth exam: poor dentition - Pulmonary Pulmonary: no respiratory distress - Cardiovascular Cardiovascular: regular rate and rhythym - ASA Status ASA Status: III ANE Anesthesia Plan Total IV Anesthesia: Yes
[2017-09-14] MEDS ORDERED: PROPOFOL 200 MG/20 ML VIAL ONE ×2 (08:51)
--- NOTE | 2017-09-14 08:58 | PDGENHP ---
History & Physical History of Present Illness: esoph stricture Pertinent Past, Social, Family History: tobacco 1/2 pack per day, no alcohol. no fhc esoph cancer Relevant Physical Exam: a+ox3. cta. s1s2. +BS, soft, nt Cardiorespiratory Assessment: class 3
[2017-09-14] MEDS ORDERED: NALOXONE HCL 0.4 MG/ML INJ IVP PRN (09:33)
[2017-09-14 09:46] VITALS: TEMP 97.2
[2017-09-14 09:53] VITALS: RESP 18
[2017-09-14 10:15] VITALS: BP 126/86; PULSE 65; O2SAT 94
--- NOTE | 2017-09-14 10:57 | GIREPORT ---
[facility] Surgical Services - Endoscopy Department Patient Name: Tuan Hooker Procedure Date: 09/14/2017 9:03 AM Patient Type: Outpatient Attending MD/ ER Physician: Naheed Palma Procedure: Upper GI endoscopy Indications: Dysphagia, For therapy of esophageal stenosis Providers: Tonny Benson MD Referring MD: Roxana Galo MD Medicines: Total IV Anesthesia (TIVA) = IV general Complications: No immediate complications. Estimated blood loss: Minimal. Description of Procedure: After obtaining informed consent, the endoscope was passed under direct vision. Throughout the procedure, the patient's blood pressure, pulse, and oxygen saturations were monitored continuously. The Endoscope was intro duced through the mouth, and advanced to the third part of duodenum. The uppe r GI endoscopy was accomplished without difficulty. The patient tolerated th e procedure well. Findings: One mild benign-appearing, intrinsic stenosis was found in the middle t hird of the esophagus. And was traversed. A TTS dilator was passed through t he scope. Dilation with a 15-16.5-18 mm x 5.5 cm CRE balloon dilator was performed to 18 mm. A TTS dilator was passed through the scope. Dilatio n with an 18-19-20 mm x 5.5 cm CRE balloon dilator was performed to 20 mm . Estimated blood loss was minimal. There were esophageal mucosal changes consistent with Holliday's esophag us present in the middle third of the esophagus and in the lower third of the esophagus. Mucosa was biopsied with a cold forceps for histology. One specimen bottle was sent to pathology. Estimated blood loss was minimal . A hiatal hernia was present. There was evidence of an intact gastrostomy with a patent G-tube presen t on the greater curvature of the stomach. This was characterized by healthy appearing mucosa. The examined duodenum was normal. The exam was otherwise without abnormality. Estimated Blood Loss: Estimated blood loss was minimal. Post Op Diagnosis: - Benign-appearing esophageal stenosis. Dilated. 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 Biops ied. - Hiatal hernia. - Intact gastrostomy with a patent G-tube present characterized by heal thy appearing mucosa. - Normal examined duodenum. - The examination was otherwise normal. Recommendation: - Await pathology results. - My office will call with the pathology result with 5-7 days. If you h ave not heard from my office by 07-21, do not assume the pathology is isacc l, please call [phone] to get the pathology results. - Follow an antireflux regimen indefinitely. - Use Protonix (pantoprazole) 40 mg PO BID. Take 30-60 minutes before breakfast and dinner - Use Zantac (ranitidine) 300 mg PO at bedtime. - Repeat upper endoscopy in 3 months for retreatment. - Discharge patient to home (ambulatory). - Patient has a contact number available for emergencies. The signs and symptoms of potential delayed complications were discussed with the pat ient. Return to normal activities tomorrow. Written discharge instructions we re provided to the patient. - Return to primary care physician as previously scheduled. - Thank you for allowing me to help in your patient's care. Do not hesi lal to call with any questions. Attending Participation: I personally performed the entire procedure. Marcelino Lancaster M.D Tonny Benson MD 09/14/2017 10:56:43 AM This report has been signed electronicallyMathew MD Marcelino Number of Addenda: 0 Note Initiated On: 09/14/2017 9:03 AM [email or web address]
== END 2017-09-14 10:15 ==
LOC: FSGY 07:38
PROVIDERS: ATTEND Internal Medicine Gastroenterology
PROC: 0D738ZZ Dilation of Lower Esophagus, Via Natural or Artificial Opening Endoscopic (ICD-10-PCS; principal; 2017-09-14 09:00)
PROC: 0DB38ZX Excision of Lower Esophagus, Via Natural or Artificial Opening Endoscopic, Diagnostic (ICD-10-PCS; principal; 2017-09-14 09:00)
DX: K22.2 Esophageal obstruction (principal); R13.10 Dysphagia, unspecified; K22.70 Barrett's esophagus without dysplasia; K44.9 Diaphragmatic hernia without obstruction or gangrene; K21.9 Gastro-esophageal reflux disease without esophagitis; F17.210 Nicotine dependence, cigarettes, uncomplicated; I10 Essential (primary) hypertension; E78.5 Hyperlipidemia, unspecified; I69.351 Hemiplegia and hemiparesis following cerebral infarction affecting right dominant side; E03.9 Hypothyroidism, unspecified; N40.0 Benign prostatic hyperplasia without lower urinary tract symptoms; Z93.1 Gastrostomy status
CPT/HCPCS: 43239; 43249; C1726; J2704

== ENCOUNTER 2018-02-09 10:19 | Day surgery (SDC) | payer MEDICAID ==
[2018-02-09] MEDS ORDERED: LIDOCAINE 1% 2 ML INJ ID PRN (11:02)
[2018-02-09] MEDS ORDERED: LR 1,000 ML IV ONE (11:02)
--- NOTE | 2018-02-09 11:43 | CPEKG ---
Heart Rate: 79 RR Interval: 759 P-R Interval: 148 QRSD Interval: 102 QT Interval: 376 QTC Interval: 432 P [place]: 46 QRS [place]: 13 T Wave [place]: 38 EKG Severity - NORMAL ECG - EKG Impression: SINUS RHYTHM Electronically Signed By: Remberto Garcia 16-Feb-2018 16:22:57
--- NOTE | 2018-02-09 12:02 | PDGENHP ---
History & Physical Chief Complaint: dysphagia, esoph stricture History of Present Illness: hx esoph striture s/p multiple dilations Pertinent Past, Social, Family History: 1/2 to 1 pasck pre day tobacco. no alcohol. no fhx ersoph cancer Relevant Physical Exam: A+ox3. CTA. S1S2. +BS, soft nt Cardiorespiratory Assessment: class 3
--- NOTE | 2018-02-09 12:20 | PDANEPAE ---
ANE History of Present Illness EGD ANE Past Medical History - Cardiovascular History Hx Hypertension: Yes Hx Arrhythmias: No Hx Chest Pain: No Hx Coronary Artery / Peripheral Vascular Disease: No Hx CHF / Valvular Disease: No Hx Palpitations: No Cardiovascular History Comment: HYPERLIPIDEMIA. 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 CVA 06/2011. FACIAL DROOP. SLURRED SPEECH. R SIDE WEAKNESS. RT FOOT DROP. 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 depression - Cancer History Hx Cancer: No - Congenital Disorder History Hx Congenital Disorders: No - GI History Hx Gastrointestinal Disorders: Yes Gastrointestinal History Comment: SWALLOW RISK POST CVA 2010. BARRETTS ESOPHAGUS HAVING MULTIPLE ESOPHAGEAL DILATIONS IN AN EFFORT TO GET RID OF G TUBE. chronic heartburn - Other Health History Other Health History: increased mouth secretions. wears glasses - Chronic Pain History Chronic Pain: No - Surgical History Prior Surgeries: MULTIPLE EGD'S/DILATIONS. I&D RT BUTTOCKS 10/28/2016. G tube 2009. ing. hernias 1978,1988 ANE Review of Systems Review of Systems: - Exercise capacity METS (RN): 2 METS (ambulates with wheelchair) ANE Patient History - Allergies Allergies/Adverse Reactions: iodine Allergy (Verified 02/09/18 10:44) - Home Medications Home Medications: Acetaminophen [Tylenol ES 500 mg (*)] PO PRN 01/27/17 [Last Taken 02/08/18] Doxazosin Mesylate [Cardura 1 MG (*)] DAILY 01/27/17 [Last Taken 02/08/18] Levothyroxine [Synthroid 25 mcg (*)] DAILY 01/27/17 [Last Taken 02/08/18] guaiFENesin [Guaifenesin] BID 01/27/17 [Last Taken 02/08/18] Atorvastatin Calcium DAILY 06/10/17 [Last Taken 02/08/18] Robinul Forte BID 06/10/17 [Last Taken 02/08/18] Omeprazole BID 12/22/17 [Last Taken 02/08/18] Ranitidine HCl 300 mg PO DAILY 02/09/18 [Last Taken 02/08/18] - NPO status NPO Since - Liquids (Date): 02/08/18 NPO Since - Liquids (Time): 22:00 NPO Since - Solids (Date): 02/08/18 NPO Since - Solids (Time): 22:00 - Smoking Hx Smoking Status: Heavy smoker - Family Anes Hx Family Hx Anesthesia Complications: unknown ANE Labs/Vital Signs - Vital Signs Blood Pressure: 125/81 Heart Rate: 91 Respiratory Rate: 16 O2 Sat (%): 90 Height: 172.72 cm Weight: 74.843 kg ANE Physical Exam - Airway Neck exam: decreased ROM Mallampati Score: Class 1 Mouth exam: poor dentition - Pulmonary Pulmonary: clear to auscultation - Cardiovascular Cardiovascular: regular rate and rhythym - ASA Status ASA Status: III ANE Anesthesia Plan Anesthesia Plan: GA with mask
[2018-02-09] MEDS ORDERED: fentaNYL 100 MCG/2 ML INJ ONE (12:22)
[2018-02-09] MEDS ORDERED: PROPOFOL 200 MG/20 ML VIAL ONE (12:22)
[2018-02-09] MEDS ORDERED: NALOXONE HCL 0.4 MG/ML INJ IVP PRN (12:37)
[2018-02-09] MEDS ORDERED: fentaNYL 100 MCG/2 ML INJ IVP PRN (12:37)
[2018-02-09] MEDS ORDERED: ONDANSETRON 4 MG/2 ML VIAL IVP PRN (12:37)
--- NOTE | 2018-02-09 12:50 | GIREPORT ---
[facility] Surgical Services - Endoscopy Department Patient Name: Tuan Hooker Procedure Date: 02/09/2018 12:02 PM Patient Type: Outpatient Attending MD/ ER Physician: Naheed Palma Procedure: Upper GI endoscopy Indications: Dysphagia, Follow-up of Holliday's esophagus, For therapy of esophageal stricture Providers: Tonny Benson MD Referring MD: Kodak Olea MD Medicines: See the Anesthesia note for documentation of the administered medicatio ns = IV general w/o airway Complications: No immediate complications. Estimated blood loss: Minimal. Description of Procedure: After obtaining informed consent, the endoscope was passed under direct vision. Throughout the procedure, the patient's blood pressure, pulse, and oxygen saturations were monitored continuously. The Endoscope was intro duced through the mouth, and advanced to the second part of duodenum. The [facility] GI endoscopy was accomplished without difficulty. The patient tolerated th e procedure well. Findings: One benign-appearing, intrinsic stenosis was found in the middle third of the esophagus. This stenosis was mildly severe and. The stenosis was traversed. A TTS dilator was passed through the scope. Dilation with an 18-19-20 mm x 5.5 cm CRE balloon dilator was performed to 20 mm. LA Grade C (one or more mucosal breaks continuous between tops of 2 or more mucosal folds, less than 75% circumference) esophagitis with no bleedin g was found in the middle third of the esophagus. Biopsies were taken with a cold forceps for histology. Estimated blood loss was minimal. There were esophageal mucosal changes secondary to established long-seg ment Holliday's disease present in the middle third of the esophagus and in t he lower third of the esophagus. Mucosa was biopsied with a cold forceps f or histology. One specimen bottle was sent to pathology. Estimated blood l oss was minimal. There was evidence of an intact gastrostomy with a patent G-tube presen t in the gastric body. The examined duodenum was normal. The exam was otherwise without abnormality. Estimated Blood Loss: Estimated blood loss was minimal. Post Op Diagnosis: - Benign-appearing esophageal stenosis. Dilated. - LA Grade C reflux esophagitis. Rule out Holliday's esophagus. Biopsied . - Esophageal mucosal changes secondary to established long-segment Perez ett's disease. Biopsied. - Intact gastrostomy with a patent G-tube present. - Normal examined duodenum. - The examination was otherwise normal. Recommendation: - Await pathology results. - My office will call with the pathology result with 5-7 days. If you h ave not heard from my office by 12-14, do not assume the pathology is isacc l, please call [phone] to get the pathology results. - Follow an antireflux regimen. - Use Prilosec (omeprazole) 40 mg PO BID. 30-60 minutes before breakfas t and dinner - Use Zantac (ranitidine) 300 mg PO at bedtime. - Repeat upper endoscopy in 2 years for surveillance of Holliday's based on pathology results. - Repeat upper endoscopy PRN for retreatment. If he has recurrent dysph agia, call the office and schedule EGD with dilation. - Discharge patient to home (ambulatory). - Return to primary care physician as previously scheduled. - Thank you for allowing me to help in your patient's care. Do not hesi lal to call with any questions. Attending Participation: I personally performed the entire procedure. Marcelino Lancaster M.D Tonny Benson MD 02/09/2018 12:50:24 PM This report has been signed electronicallyMathew MD Marcelino Number of Addenda: 0 Note Initiated On: 02/09/2018 12:02 PM [email or web address]
--- NOTE | 2018-02-09 12:53 | POSTANESTH ---
Post Anesthetic Evaluation Cardiovascular Status: Similar to Pre-Op Cond Respiratory Status: Similar to Pre-op Cond. Level of Consciousness/Mental Status: Can Participate in Eval Pain Control: Adequate, Prn Tx Ordered Nausea/Vomiting Control: Adequate, Prn Tx Ordered Complications Possibly Related to Anesthesia: None Noted
[2018-02-09 13:06] VITALS: BP 117/83
== END 2018-02-09 13:32 ==
LOC: FSGY 10:19
PROVIDERS: ATTEND Internal Medicine Gastroenterology
PROC: 0D728ZZ Dilation of Middle Esophagus, Via Natural or Artificial Opening Endoscopic (ICD-10-PCS; principal; 2018-02-09 12:00)
PROC: 0DB38ZX Excision of Lower Esophagus, Via Natural or Artificial Opening Endoscopic, Diagnostic (ICD-10-PCS; principal; 2018-02-09 12:00)
DX: K22.2 Esophageal obstruction (principal); K22.70 Barrett's esophagus without dysplasia; R13.10 Dysphagia, unspecified; F17.210 Nicotine dependence, cigarettes, uncomplicated; I10 Essential (primary) hypertension; E78.5 Hyperlipidemia, unspecified; E03.9 Hypothyroidism, unspecified; I69.351 Hemiplegia and hemiparesis following cerebral infarction affecting right dominant side; N40.0 Benign prostatic hyperplasia without lower urinary tract symptoms; Z86.718 Personal history of other venous thrombosis and embolism; Z93.1 Gastrostomy status
CPT/HCPCS: 43239; 43249; 93005; C1726; J2704; J3010